=== PATIENT | female | born 1955 | race Caucasian/White ===

== ENCOUNTER → 2017-09-02 | Outpatient (CLI) | payer BC ==
[~2017-09-02] MED LIST: AZITTAB PO; HYDC25 PO
[2017-09-02 13:24] LABS: ALT/SGPT 21 U/L (12-78); AST/SGOT 17 U/L (15-37); BLOOD UREA NITROGEN 18 mg/dl (7-18); BUN/CREATININE RATIO 23.4 (10-20); CALCIUM 9.2 mg/dl (8.5-10.1); CARBON DIOXIDE 28 mmol/L (21-32); CHLORIDE 108 mmol/L (98-107); CREATININE 0.79 mg/dl (0.60-1.20); GLUCOSE 86 mg/dl (70-99); POTASSIUM 3.9 mmol/L (3.5-5.1); SODIUM 142 mmol/L (136-145)
[2017-09-02 13:35] LABS: ALB/GLOB RATIO 0.9 (0.9-2); ALKALINE PHOSPHATASE 102 U/L (45-117)
== END | disposition home or self-care (01) ==
LOC: C.LABPVFM 08:10
PROVIDERS: ATTEND Family Medicine Adult Medicine
DX: I10 Essential (primary) hypertension (principal); Z00.00 Encounter for general adult medical examination without abnormal findings

== ENCOUNTER 2019-12-28 20:04 | Inpatient (IN) ==
[2019-12-28] MEDS ORDERED: fentaNYL citrate 100 MCG/2 ML VIAL IV STA (20:20)
[2019-12-28] MEDS ORDERED: KETOROLAC TROMETHAMINE 15 MG/ML VIAL IV STA (20:20)
[2019-12-28] MEDS ORDERED: SODIUM CHLORIDE 0.9% 1000ML 1,000 ML IV ONE (20:20)
[2019-12-28] MEDS ORDERED: ONDANSETRON INJ 2 MG/ML 2 ML VIAL IV STA (20:20)
[2019-12-28 20:39] LABS: Basophils # (auto) 0.04 K/uL (0-0.2); Basophils % (auto) 0.2 %; Eosinophils # (auto) 0.04 K/uL (0-0.5); Eosinophils % (auto) 0.2 %; Hematocrit (blood only) 47.8 % (37-47); Hemoglobin 16.7 g/dL (12.0-16.0); Immature Granulocytes # (auto) 0.06 K/uL (0.00-0.02); Immature Granulocytes % (auto) 0.4 %; Lymphocytes # (auto) 2.49 K/uL (1.2-3.4); Lymphocytes % (auto) 14.9 %; Mean Corpuscular Hemoglobin 32.1 pg (25-34); Mean Corpuscular Hgb Conc 34.9 g/dL (32-36); Mean Corpuscular Volume 91.9 fL (80-100); Mean Platelet Volume 10.7 fL (7.4-10.4); Monocytes # (auto) 1.15 K/uL (0.11-0.59); Monocytes % (auto) 6.9 %; Neutrophils # (auto) 12.92 K/uL (1.4-6.5); Neutrophils % (auto) 77.4 %; Platelet Count 254 K/uL (130-400); RDW Standard Deviation 43.7 fL (36.4-46.3)
[2019-12-28 20:44] LABS: iSTAT Creatinine 0.6 mg/dl (0.6-1.3); iSTAT Hemoglobin 17.3 g/dl (12.0-16.0); iSTAT Ionized Calcium 1.14 mmol/l (1.12-1.32); iSTAT Potassium 3.4 mmol/L (3.3-5.0)
[2019-12-28 20:48] LABS: Prothrombin Time 10.9 Seconds (9.0-12.0)
[2019-12-28 20:57] LABS: Alanine Aminotransferase 46 U/L (12-78); Albumin Level 3.5 gm/dl (3.4-5.0); Aspartate Aminotransferase 277 U/L (15-37); BUN Creatinine Ratio 24.3 (10-20); Blood Urea Nitrogen 19 mg/dl (7-18); Calcium 9.5 mg/dl (8.5-10.1); Carbon Dioxide 22 mmol/L (21-32); Chloride 107 mmol/L (98-107); Est GFR (African American) 95.2; Est GFR (Non-African American) 82.2; Glucose 147 mg/dl (70-99); Lipase 151 U/L (73-393); Potassium 3.4 mmol/L (3.5-5.1); Sodium 138 mmol/L (136-145)
[2019-12-28] MEDS ORDERED: OPTIRAY 320 125ml IV PRN (21:09)
--- NOTE | 2019-12-28 21:22 | CT Scan Report ---
CT angio chest PE protocol CT DOSE: 512.74 mGy.cm HISTORY: Chest PE, dizzy, sob, epigastric pain TECHNIQUE: Multiaxial CT images of the chest were performed following the intravenous administration of contrast to evaluate the pulmonary arteries. Maximal intensity projection images were also obtaine d. A dose lowering technique was utilized adhering to the principles of ALARA. COMPARISON STUDY: None. FINDINGS: There is a normal caliber thoracic aorta with no evidence for dissection. There is no evide nce for pulmonary embolus. No pleural effusions. No pneumothorax. The liver and spleen are unremarkab le. No mediastinal or hilar lymphadenopathy. The central airways are patent. The lungs are clear. The re is mild peribronchial thickening. There are findings of mild emphysematous change. IMPRESSION: 1. No evidence for pulmonary embolus. 2. Mild peribronchial thickening throughout both hemithoraces. 3. No focal infiltrate. ACT 112: Negative or not required by law. The above report was generated using voice recognition software. It may contain grammatical, syntax or spelling errors. Electronically signed by: Curtis Early M.D. 12/28/2019 9:21 PM
--- NOTE | 2019-12-28 21:29 | CT Scan Report ---
CT abd pelvis IV con only CT DOSE: HISTORY: Pain. Nausea. epigastric pain, dizzy, nausea TECHNIQUE: Multiaxial CT images of the abdomen and pelvis were performed following the use of intrave nous contrast. A dose lowering technique was utilized adhering to the principles of ALARA. COMPARISON STUDY: None. FINDINGS: Lung bases are clear. Liver spleen and pancreas appear unremarkable. Kidneys enhance unifor mly. There is a 3.5 cm left renal parapelvic cyst. There is aneurysmal dilatation of the mid abdominal aorta extending superior and inferior to the kimberly l arteries. This has a maximum diameter 4.2 cm. It is partially clot filled. There is no evidence for contrast extravasation. The bowel pattern within the abdomen is nonobstructive. Within the pelvis there is evidence for chronic sigmoid diverticulosis. There is suggestion of a trac e amount of pericolonic infiltrative change. No evidence for abscess collection or obstructive change. IMPRESSION: 1. 4.2 cm partially clot filled mid abdominal aortic aneurysm. 2. This extends to a position superior and inferior to the renal arteries. 3. No evidence for aneurysmal leak. 4. Chronic sigmoid diverticulosis with a trace amount of superimposed acute diverticular change. 5. No evidence for abscess collection or obstructive change. ACT 112: Negative or not required by law. The above report was generated using voice recognition software. It may contain grammatical, syntax or spelling errors. Electronically signed by: Curtis Early M.D. 12/28/2019 9:28 PM
[2019-12-28 21:42] LABS: Albumin Globulin Ratio 0.8 (0.9-2); Alkaline Phosphatase 111 U/L (45-117); Bilirubin,Total 0.6 mg/dl (0.2-1); Globulin 4.5 gm/dl (2.5-4.0)
[2019-12-28] MEDS ORDERED: NITROGLYCERIN SL 0.4 MG/TAB TAB SL STA (21:48)
[2019-12-28] MEDS ORDERED: ASPIRIN 81 MG CHEW PO STA (21:48)
[2019-12-28] MEDS ORDERED: HEPARIN SODIUM/DEXTROSE 25,000 UNITS/500 ML BAG IV SCH (22:00)
[2019-12-28] MEDS ORDERED: HEPARIN SOD (PORCINE) 1000 UNIT/ML 10 ML VIAL ONE (22:09)
[2019-12-28 22:26] LABS: Partial Thromboplastin Ratio 0.9; Partial Thromboplastin Time 24.8 Seconds (21.0-31.0)
--- NOTE | 2019-12-28 22:28 | Emergency Department Note ---
Entered by Raisa Blackwell acting as a scribe for History of Present Illness General Chief complaint: Abdominal Pain Stated complaint: ABD PAIN Time Seen by Provider: 12/28/19 20:09 History of Present Illness Provider complaint: epigastric abdominal pain Onset (ago): hour(s) (18) Location: abdomen (epigastric) Pain Consistency: + constant Maximum Pain Intensity: 3 Quality: + other (pressure) Exacerbated By: + movement Associated symptoms: + denies other symptoms (recent travel), + nausea/vomiting and + other (dizzy spells, intermittent lightheadedness, has not been able to eat or drink anything today); no fever/chills The patient is a 64 year old female who presents to the ED with complaints of constant epigastric abdominal pain that started 18 hours ago. The patient describes her pain as a pressure and states that it is exacerbated by movement. The patient states that she also gets dizzy spells and intermittent lightheadedness. Per , the patient has felt nauseas and she just vomited for the first time here in the ED. The patient states that she has not been able to eat or drink anything today. The patient denies fever or recent travel. 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 and A total of 10 systems reviewed and were otherwise negative Physical Exam Vital Signs Vital Signs - 24 hr 12/28/19 20:06 12/28/19 20:30 12/28/19 20:33 Temperature 36.4 C L Temperature Source Oral Pulse Rate 76 65 60 Pulse Rate [Apical] 59 L Pulse Rate from SpO2 Sensor 64 Pulse Rhythm Regular Pulse Rhythm [Apical] Regular Pulse Strength [Apical] Normal Respiratory Rate 19 26 H 18 Respiratory Effort / Characteristics Non-Labored Spontaneous Respiratory Depth Normal Respiratory Pattern Regular Blood Pressure 159/95 H 169/95 H Blood Pressure [Left Arm] 169/95 H Blood Pressure Mean 116 109 Blood Pressure Mean [Left Arm] 119 Blood Pressure Position Lying Blood Pressure Position [Left Arm] Semi-fowlers Pulse Oximetry 100 98 100 Oxygen Delivery Method Room Air Room Air Sepsis Recent Fever Within 48 Hours No Sepsis Action Taken by Nursing No Action Required 12/28/19 21:00 12/28/19 21:40 12/28/19 21:54 Temperature Temperature Source Pulse Rate 67 76 Pulse Rate [Apical] 80 Pulse Rate from SpO2 Sensor 66 74 Pulse Rhythm Pulse Rhythm [Apical] Regular Pulse Strength [Apical] Normal Respiratory Rate 24 23 21 Respiratory Effort / Characteristics Non-Labored Spontaneous Respiratory Depth Normal Respiratory Pattern Regular Blood Pressure 150/88 H 140/87 Blood Pressure [Left Arm] 140/87 Blood Pressure Mean 104 92 Blood Pressure Mean [Left Arm] 104 Blood Pressure Position Blood Pressure Position [Left Arm] Sitting Pulse Oximetry 97 94 98 Oxygen Delivery Method Room Air Sepsis Recent Fever Within 48 Hours Sepsis Action Taken by Nursing 12/28/19 22:00 12/28/19 22:02 12/28/19 22:30 Temperature Temperature Source Pulse Rate 86 84 67 Pulse Rate [Apical] Pulse Rate from SpO2 Sensor 86 84 68 Pulse Rhythm Pulse Rhythm [Apical] Pulse Strength [Apical] Respiratory Rate 24 25 H 21 Respiratory Effort / Characteristics Respiratory Depth Respiratory Pattern Blood Pressure 125/85 125/85 107/87 Blood Pressure [Left Arm] Blood Pressure Mean 102 102 95 Blood Pressure Mean [Left Arm] Blood Pressure Position Blood Pressure Position [Left Arm] Pulse Oximetry 99 97 99 Oxygen Delivery Method Room Air Sepsis Recent Fever Within 48 Hours Sepsis Action Taken by Nursing 12/28/19 23:00 12/28/19 23:30 12/28/19 23:51 Temperature Temperature Source Pulse Rate 67 65 65 Pulse Rate [Apical] Pulse Rate from SpO2 Sensor 68 66 Pulse Rhythm Pulse Rhythm [Apical] Pulse Strength [Apical] Respiratory Rate 24 24 24 Respiratory Effort / Characteristics Respiratory Depth Respiratory Pattern Blood Pressure 143/87 H 137/89 137/89 Blood Pressure [Left Arm] Blood Pressure Mean 103 102 Blood Pressure Mean [Left Arm] Blood Pressure Position Blood Pressure Position [Left Arm] Pulse Oximetry 100 96 96 Oxygen Delivery Method Room Air Room Air Room Air Sepsis Recent Fever Within 48 Hours Sepsis Action Taken by Nursing GENERAL: Awake, alert, uncomfortable-appearing, in mild to moderate distress HENT: Normocephalic, atraumatic. No slurred speech. EYES: Normal conjunctiva. Sclera non-icteric. NECK: Supple. No nuchal rigidity. RESPIRATORY: Clear to auscultation. No wheezes. Normal respiratory effort. CARDIAC: Normal rate. Normal rhythm. Extremities warm and well perfused. GI: Soft, non-distended. Mild diffuse abdominal tenderness. No rebound or guarding. MUSCULOSKELETAL: Atraumatic. Chest examination reveals no tenderness. LOWER EXTREMITIES: Calves are equal size bilaterally and non-tender. No edema NEURO: Normal sensorium. No sensory or motor deficits noted. No facial droop. SKIN: Warm and diaphoretic. No rash or jaundice noted. Course Course 2013: Past medical records reviewed. The patient was evaluated in room B12B. A complete history and physical exam was performed. 2136: I reevaluated the patient and she is still having some discomfort. I updated her on the test results. 2151: I discussed the patient's case with Dr. Reece Baker. He recommends Heparin and medical admission. 2157: I updated the patient on the plan for admission. She verbally agrees and understands. 3: I discussed the patient's case with Dr. Lopes [facility], Hospitalist. She will evaluate the patient for further management. Consultations Consultation #1: I discussed the patient's case with Dr. Reece Baker. He recommends Heparin and medical admission. Time: 21:52 Consultation #2: I discussed the patient's case with Dr. Lopes [facility], Hospitalist. She will evaluate the patient for further management. Time: 22:03 Administered Medications Heparin Sodium/Dextrose (Heparin Sodium/Dextrose) 25,000 units in 500 mls @ 0.02 mls/hr IV .Q24H [facility]; Protocol Stop: 01/27/20 21:59 Last Admin: 12/28/19 22:15 Dose: 1,150 units/hr, 23 mls/hr Documented by: [id number] Cosigned by: [id number] Ioversol (Optiray 320 125ml) 117 ml IV ONCE PRN PRN Reason: Interaction Checking Stop: 01/01/20 21:08 Last Admin: 12/28/19 21:09 Dose: 117 ml Documented by: [id number] Discontinued Medications Aspirin (Aspirin Chew) 324 mg PO NOW STA Stop: 12/28/19 21:49 Last Admin: 12/28/19 21:53 Dose: 324 mg Documented by: [id number] Fentanyl Citrate (Fentanyl Citrate) 50 mcg IV NOW STA Stop: 12/28/19 20:21 Last Admin: 12/28/19 20:29 Dose: 50 mcg Documented by: [id number] Heparin Sodium (Porcine) (Heparin Iv Bolus) Confirm Administered Dose 10,000 un its .ROUTE .STK-MED ONE Stop: 12/28/19 22:10 Last Admin: 12/28/19 22:15 Dose: 5,000 units Documented by: [id number] Cosigned by: [id number] Sodium Chloride (Nss 1000ml) 1,000 mls @ 999 mls/hr IV .Q1H1M ONE Stop: 12/28/19 21:20 Last Infusion: 12/28/19 21:32 Dose: 0 mls/hr Documented by: [id number] Admin: 12/28/19 20:28 Dose: 999 mls/hr Documented by: [id number] Ketorolac Tromethamine (Toradol) 15 mg IV NOW STA Stop: 12/28/19 20:21 Last Admin: 12/28/19 20:28 Dose: 15 mg Documented by: [id number] Morphine Sulfate (Morphine Sulfate) 1 mg IV NOW STA Stop: 12/28/19 23:30 Last Admin: 12/29/19 00:03 Dose: 1 mg Documented by: [id number] Nitroglycerin (Nitrostat) 0.4 mg SL NOW STA Stop: 12/28/19 21:49 Last Admin: 12/28/19 21:53 Dose: 0.4 mg Documented by: [id number] Ondansetron HCl (Zofran) 4 mg IV NOW STA Stop: 12/28/19 20:21 Last Admin: 12/28/19 20:28 Dose: 4 mg Documented by: [id number] Critical Care Time Critical Care Time: Yes Total Critical Care Time: 40 I have personally spent 40 minutes of critical care time in the direct managem ent of this patient. This includes bedside care, interpretation of diagnostic studies, and testing, discussion with consultants, patient, and family members, and other required patient management activities. This 40 minutes is in excess of all separately billable procedures. Medical Decision Making Differential Diagnosis Differential diagnosis: Etiologies such as biliary colic, cholecystitis, hepatitis, perihepatitis, pancreatitis, cardiac disease, pancreatitis, gastritis, peptic ulcer disease, a ppendicitis, ovarian cyst, ovarian torsion, pelvic inflammatory disease, cystitis, diverticulitis, mesenteric ischemia, inflammatory bowel disease, ileus, bowel obstruction, aortic pathology, shingles, as well as others were considered. Medical Records Attestation: I reviewed the patient's medical records. Home Medications Current Medication List: was personally reviewed by me Laboratory Data Attestation: I reviewed the patient's lab results. Result diagrams: 12/28/19 20:20 12/28/19 20:20 Lab Results 12/28/19 12/28/19 12/28/19 Range/Units 20:20 20:20 20:20 WBC 16.70 H (4.8-10.8) K/uL RBC 5.20 (4.2-5.4) M/uL Hgb 16.7 H (12.0-16.0) g/dL POC Hgb (12.0-16.0) g/dl Hct 47.8 H (37-47) % POC Hct (37-47) % MCV 91.9 (80-100) fL MCH 32.1 (25-34) pg MCHC 34.9 (32-36) g/dL RDW Std Deviation 43.7 (36.4-46.3) fL RDW Coeff of Ganga 13.0 (11.5-14.5) % Plt Count 254 (130-400) K/uL MPV 10.7 H (7.4-10.4) fL Immature Gran % (Auto) 0.4 % Neut % (Auto) 77.4 % Lymph % (Auto) 14.9 % Nance % (Auto) 6.9 % Eos % (Auto) 0.2 % Baso % (Auto) 0.2 % Immature Gran # (Auto) 0.06 H (0.00-0.02) K/uL Neut # (Auto) 12.92 H (1.4-6.5) K/uL Lymph # (Auto) 2.49 (1.2-3.4) K/uL Nance # (Auto) 1.15 H (0.11-0.59) K/uL Eos # (Auto) 0.04 (0-0.5) K/uL Baso # (Auto) 0.04 (0-0.2) K/uL PT 10.9 (9.0-12.0) Seconds INR 1.0 (0.9-1.1) APTT (21.0-31.0) Seconds PTT Ratio POC Sodium (135-144) mmol/L Sodium 138 (136-145) mmol/L POC Potassium (3.3-5.0) mmol/L Potassium 3.4 L (3.5-5.1) mmol/L POC Chloride (101-112) mmol/L Chloride 107 (98-107) mmol/L Carbon Dioxide 22 (21-32) mmol/L POC Total CO2 (24-31) mEq/l Anion Gap 9.0 (3-11) POC Anion Gap (16-25) mmol/L POC BUN (7-18) mg/dl BUN 19 H (7-18) mg/dl Creatinine 0.77 (0.6-1.2) mg/dl POC Creatinine (0.6-1.3) mg/dl Est Cr Clr Drug Dosing Not Reportable Est GFR ( Amer) 95.2 Est GFR (Non-Af Amer) 82.2 BUN/Creatinine Ratio 24.3 H (10-20) Glucose 147 H (70-99) mg/dl POC Glucose (other) (70-99) mg/dl Calcium 9.5 (8.5-10.1) mg/dl POC Ioniz Calcium Jian (1.12-1.32) mmol/l Phosphorus 2.2 L (2.5-4.9) mg/dl Magnesium 1.9 (1.8-2.4) mg/dl Total Bilirubin 0.6 (0.2-1) mg/dl AST 277 H (15-37) U/L ALT 46 (12-78) U/L Alkaline Phosphatase 111 (45-117) U/L Troponin I 44.900 H* (0-0.045) ng/ml Total Protein 8.0 (6.4-8.2) gm/dl Albumin 3.5 (3.4-5.0) gm/dl Globulin 4.5 H (2.5-4.0) gm/dl Albumin/Globulin Ratio 0.8 L (0.9-2) Lipase 151 (73-393) U/L Blood Type Antibody Screen 12/28/19 12/28/19 12/28/19 Range/Units 20:31 22:06 22:06 WBC (4.8-10.8) K/uL RBC (4.2-5.4) M/uL Hgb (12.0-16.0) g/dL POC Hgb 17.3 H (12.0-16.0) g/dl Hct (37-47) % POC Hct 51 H (37-47) % MCV (80-100) fL MCH (25-34) pg MCHC (32-36) g/dL RDW Std Deviation (36.4-46.3) fL RDW Coeff of Ganga (11.5-14.5) % Plt Count (130-400) K/uL MPV (7.4-10.4) fL Immature Gran % (Auto) % Neut % (Auto) % Lymph % (Auto) % Nance % (Auto) % Eos % (Auto) % Baso % (Auto) % Immature Gran # (Auto) (0.00-0.02) K/uL Neut # (Auto) (1.4-6.5) K/uL Lymph # (Auto) (1.2-3.4) K/uL Nance # (Auto) (0.11-0.59) K/uL Eos # (Auto) (0-0.5) K/uL Baso # (Auto) (0-0.2) K/uL PT (9.0-12.0) Seconds INR (0.9-1.1) APTT 24.8 (21.0-31.0) Seconds PTT Ratio 0.9 POC Sodium 139 (135-144) mmol/L Sodium (136-145) mmol/L POC Potassium 3.4 (3.3-5.0) mmol/L Potassium (3.5-5.1) mmol/L POC Chloride 105 (101-112) mmol/L Chloride (98-107) mmol/L Carbon Dioxide (21-32) mmol/L POC Total CO2 22 L (24-31) mEq/l Anion Gap (3-11) POC Anion Gap 17.0 (16-25) mmol/L POC BUN 18 (7-18) mg/dl BUN (7-18) mg/dl Creatinine (0.6-1.2) mg/dl POC Creatinine 0.6 (0.6-1.3) mg/dl Est Cr Clr Drug Dosing Est GFR ( Amer) Est GFR (Non-Af Amer) BUN/Creatinine Ratio (10-20) Glucose (70-99) mg/dl POC Glucose (other) 141 H (70-99) mg/dl Calcium (8.5-10.1) mg/dl POC Ioniz Calcium Jian 1.14 (1.12-1.32) mmol/l Phosphorus (2.5-4.9) mg/dl Magnesium (1.8-2.4) mg/dl Total Bilirubin (0.2-1) mg/dl AST (15-37) U/L ALT (12-78) U/L Alkaline Phosphatase (45-117) U/L Troponin I (0-0.045) ng/ml Total Protein (6.4-8.2) gm/dl Albumin (3.4-5.0) gm/dl Globulin (2.5-4.0) gm/dl Albumin/Globulin Ratio (0.9-2) Lipase (73-393) U/L Blood Type A Positive Antibody Screen NEGATIVE Imaging Data Radiologist's Impression: Radiology results as stated below per my review and the radiologist's interpretation: CT angio chest PE protocol CT DOSE: 512.74 mGy.cm HISTORY: Chest PE, dizzy, sob, epigastric pain TECHNIQUE: Multiaxial CT images of the chest were performed following the intrav enous administration of contrast to evaluate the pulmonary arteries. Maximal intensity projection images were also obtained. A dose lowering technique was utilized adhering to the principles of ALARA. COMPARISON STUDY: None. FINDINGS: There is a normal caliber thoracic aorta with no evidence for dissection. There is no evidence for pulmonary embolus. No pleural effusions. No pneumothorax. The liver and spleen are unremarkable. No mediastinal or hilar lymphadenopathy. The central airways are patent. The lungs are clear. There is mild peribronchial thickening. There are findings of mild emphysematous change. IMPRESSION: 1. No evidence for pulmonary embolus. 2. Mild peribronchial thickening throughout both hemithoraces. 3. No focal infiltrate. ACT 112: Negative or not required by law. The above report was generated using voice recognition software. It may contain grammatical, syntax or spelling errors. Electronically signed by: Curtis Early M.D. 12/28/2019 9:[address] abd pelvis IV con only CT DOSE: HISTORY: Pain. Nausea. epigastric pain, dizzy, nausea TECHNIQUE: Multiaxial CT images of the abdomen and pelvis were performed following the use of intravenous contrast. A dose lowering technique was utilized adhering to the principles of ALARA. COMPARISON STUDY: None. FINDINGS: Lung bases are clear. Liver spleen and pancreas appear unremarkable. Kidneys enhance uniformly. There is a 3.5 cm left renal parapelvic cyst. There is aneurysmal dilatation of the mid abdominal aorta extending superior and inferior to the renal arteries. This has a maximum diameter 4.2 cm. It is partially clot filled. There is no evidence for contrast extravasation. The bowel pattern within the abdomen is nonobstructive. Within the pelvis there is evidence for chronic sigmoid diverticulosis. There is suggestion of a trace amount of pericolonic infiltrative change. No evidence for abscess collection or obstructive change. IMPRESSION: 1. 4.2 cm partially clot filled mid abdominal aortic aneurysm. 2. This extends to a position superior and inferior to the renal arteries. 3. No evidence for aneurysmal leak. 4. Chronic sigmoid diverticulosis with a trace amount of superimposed acute diverticular change. 5. No evidence for abscess collection or obstructive change. ACT 112: Negative or not required by law. The above report was generated using voice recognition software. It may contain grammatical, syntax or spelling errors. Electronically signed by: Curtis Early M.D. 12/28/2019 9:28 PM ECG Data Attestation: I personally reviewed and interpreted this ECG as follows: Indication: + abdominal pain Rate (beats per minute): 66 Rhythm: + normal sinus ECG Intervals/blocks: + Normal QRS and + Normal QT-c ECG ST segments: + ST depression (inferior) and + T-wave inversions (Lateral); no ST elevation ECG Findings: no PVCs Comparison ECG Date: no prior available Blood Pressure Blood Pressure Findings: Elevated blood pressure Blood Pressure Disposition: further management by hospitalist OLIVER Narrative Continuous Cardiac Monitoring: An order was placed for continuous cardiac monitoring. The monitor shows a rate of 66 with normal sinus rhythm. Patient is a 64-year-old female with a history of hypertension presenting here today with complaint of onset approximately 18 hours ago overnight of epigastric abdominal pain, nausea, and dizziness. No fevers or trauma reported. Patient appears somewhat diaphoretic and in moderate distress upon entering the room on the bed. Some mild mid abdominal tenderness is appreciated without arlette Ohara sign. Denies headache or other neurological sequelae upon some dizziness. States has been able to eat or drink much today and has been vomiting. No other sick contacts. Little bit breathless. No travel recently. EKG shows lateral T wave inversions and slight inferior ST depression without prior available for comparison. Troponin was sent. CT of the chest to exclude PE and CT abdomen pelvis to exclude intra-abdominal pathology was completed. Doubt acute intracranial abnormality or bleed at this time. Basic labs to evaluate blood counts, electrolytes, renal function, transaminases, and lipase were sent. Do not believe this represents viral syndrome or flu. Patient states she has had some episodes of dizziness in the past. Laboratory studies show leukocytosis 16.7. No evidence of renal dysfunction or significant electrolyte abnormality. No evidence of pancreatitis. AST slightly elevated. CT of chest with mild peribronchial thickening but no evidence of PE or focal infiltrate; no evidence of thoracic dissection. CT of the abdomen pelvis shows a 4.2 cm partially clot filled mid abdominal aortic aneurysm extends superior and inferior to the renal arteries. There is no evidence of aneurysmal leak. Significantly there is a finding of an elevated troponin of 44.9. EKG again does not show evidence of STEMI, but some slight inferior depression and lateral T wave changes. 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 Discussed with the baggage smasher on-call who recommended heparinization and medical management overnight. Hospitalist was alerted for admission and case discussed. Given some aspirin, heparin drip, and nitroglycerin. Pain symptoms minimal at this time. Believe risk of bleeding is lower than benefit from anticoagulation at this time. Impression & Plan Non-ST elevation myocardial infarction (NSTEMI), Epigastric pain, Dizziness Discharge Plan Visit Data Chief Complaint: Abdominal Pain Stated Complaint: ABD PAIN ED Provider: Lanre Batres Discharge Problem: Non-ST elevation myocardial infarction (NSTEMI), Epigastric pain, Dizziness Patient Disposition: Being Evaluated by Hospitalist Discharge Instructions Interventions: ED Discharge Assessment Last Done: 12/28/19 23:51 Forms Stand Alone Forms: My [facility] Prescriptions Prescriptions: No Action amlodipine 5 mg tablet 5 mg PO DAILY Qty: 30 RF: 0 Referrals Referrals: PT,DECLINED [Primary Care Provider] - The scribe's documentation has been prepared under my direction and personally reviewed by me in its entirety. I confirm that the note above accurately reflects all work, treatment, procedures, and medical decision making performed by me.
[2019-12-28 22:46] LABS: Magnesium 1.9 mg/dl (1.8-2.4); Phosphorus 2.2 mg/dl (2.5-4.9)
[2019-12-28] MEDS ORDERED: MoRPHine SULFATE 2 MG/ML CARP IV STA (23:29)
[2019-12-28] MEDS ORDERED: PNEUMOCOCCAL POLYSACCHARIDES 25 MCG/0.5 ML VIAL/SYR IM ONE (23:39)
[2019-12-28] MEDS ORDERED: PNEUMOCOCCAL ADMINISTRATION CHARGE ONE (23:39)
[2019-12-29] MEDS ORDERED: MoRPHine SULFATE 2 MG/ML CARP IV PRN (00:24)
[2019-12-29] MEDS ORDERED: ACETAMINOPHEN 325 MG TAB PO PRN ×2 (00:24→10:05)
[2019-12-29] MEDS ORDERED: SODIUM CHLORIDE 0.9% 1000ML 1,000 ML IV SCH ×2 (00:24→10:15)
[2019-12-29 01:07] LABS: Appearance Urine Clear (Clear); Bacteria Urine Automated Negative (Negative); Bilirubin Urine Negative (Negative); Blood Urine 1+ (Negative); Color Urine Yellow; Glucose Urine UA Negative (Negative); Ketones Urine 2+ (Negative); Leukocyte Esterase Urine Negative (Negative); Nitrite Urine Negative (Negative); Protein Urine Negative (Negative); Specific Gravity Urine > 1.045 (1.000-1.030); Urobilinogen Urine Negative (Negative)
[2019-12-29] MEDS: NITROGLYCERIN 2% OINTMENT 30GM TUBE EXT SCH ×4 (01:29→18:37)
[2019-12-29] MEDS ORDERED: Heparin IV Standard *NO* Bolus IV ONE (01:32)
[2019-12-29] MEDS: HEPARIN SODIUM/DEXTROSE 25,000 UNITS/500 ML BAG IV SCH (01:35)
[2019-12-29] MEDS: ONDANSETRON INJ 2 MG/ML 2 ML VIAL IV PRN ×2 (02:00→04:47)
--- NOTE | 2019-12-29 02:34 | History & Physical Report ---
Date of Service December 28, 2019 Assessment & Plan (1) Non-ST elevation myocardial infarction (NSTEMI): Keri Russo is a 64-year-old woman with past medical history of hypertension and mild COPD who is here today for N STEMI with newly visualized AAA NSTEMI No personal history of coronary disease but patient does have risk factor of smoking, ECG showing no ST changes however troponin elevated to 40 and pain and dyspnea with exertion Given aspirin nitroglycerin and started on heparin drip We will admit to PCU on telemetry, cardiology stat consulted Dr. Joseph who recommends treating medically as there is no acute call for coronary catheterization at this time We will get new ECGs with chest pain and try to make sure patient is pain-free with Nitropaste and morphine as needed Pain is much improved, patient is breathing more comfortably Echo ordered for morning Mag and phosphate levels ordered Slightly hypokalemic will replace potassium AAA Newly visualized AAA, less than 5 cm in size with no evidence of acute worsening at this time Patient has been typed and screened, if patient will develop new abdominal pain or have worsening hemodynamics we will resuscitate order stat vascular consult Do not believe this is related to patient's current NSTEMI COPD Stable oxygen well on room air, Not on home medications, no need for oxygen Health maintenance We will give patient Pneumovax F/C/N: Normal saline at 80 mils per hour with KCl 40 mEq DVT prophylaxis: On heparin drip Full code Disco: Admit to PCU and monitor closely ECG with a new chest pain cardiology to evaluate in the morning for possible coronary catheterization (2) Epigastric pain: (3) Dizziness: (4) COPD (chronic obstructive pulmonary disease): (5) Abdominal aortic aneurysm: History of Present Illness Primary Care Provider: PT DECLINED Keri Russo is a 64-year-old woman with a past medical history significant for hypertension and COPD. She takes only amlodipine 5 mg at home. She is here today for epigastric pain and dyspnea that started around 2:30 AM and awoke her from sleep she decided to watch these symptoms to see if she would get better and to stay in bed for most of the day her epigastric pain persisted she describes it as a pretty sharp pain that she rates at times it about a 10 out of 10. Eventually she decided to come in, and on the drive and she did have a few episodes of dry heaving though she believes this was more due to pain than due to any nausea. She denies any palpitations, any syncope or presyncope, any neurological symptoms. In emergency department she was found to be hemodynamically stable, afebrile, though she has been tachypneic which she attributes to her anxiety over the circumstances. ECG without acute ST changes, troponin elevated to 40, CTA chest negative CT abdomen showing 4 cm abdominal aortic aneurysm with clotted blood and no active flow. Patient was given aspirin 325, nitroglycerin, and started on a heparin drip. She feels her pain is much improved and has gone from quite severe to more of a discomfort now that she rates it about a 1. She denies arlette chest pain, her abdominal pain does not seem to radiate to her back or anywhere else. She has not had vomiting, no fevers, no chills, no cough, no palpitations, No calf pain, no leg swelling, no syncope/presyncope, no headache, no confusion, she is endorsing anxiety. She has been about a half pack a day smoker since she was 18, she also smokes marijuana regularly, she was diagnosed with COPD but does not take any medication or need any oxygen. She is otherwise healthy and was in her usual state of health prior to going to be last night before being awoken by this pain. Allergies Allergy/AdvReac Type Severity Reaction Status Date / Time No Known Allergies Allergy Mild Verified 12/28/19 21:30 Home Medications Home Medications Medication Instructions Recorded Confirmed Type amlodipine 5 mg tablet 5 mg PO DAILY #30 tab 10/04/19 12/28/19 Rx Past Med/Surg History Social History Preferred Language: Bengali Communication Ability: Effective Housing Inspector Required: No Beliefs That Will Affect Care: None Current Living Situation: Spouse Other Information That Helps Us Care for You: Yes (has a support dog) Feels Safe at Home: Yes Smoking Status: Current every day smoker Tobacco Type: cigarettes ; Cigarettes Per Day: 5 ; Tobacco Cessation Education Requested by Patient: No Hx Alcohol Use: Yes Review of Systems Review of Systems: All systems reviewed & are unremarkable except as noted in HPI & below Physical Exam Physical Exam: Constitutional: Patient appears anxious fidgeting her hands together in bed, no longer as tachypneic, at bedside. Small amount of sweat on face Eyes: TOMMY MISTRY ENMT: No external abnormalities detected Respiratory: No increased work of breathing, normal rate, chest expansion equal, lung sounds vesicular in all lung north, good air entry globally Card: Heart sounds dual, regular rate and rhythm, PMI normal, peripheral pulses strong and intact, skin appears well perfused in extremities GI: Abdomen soft and nontender, patient with epigastric pain though not made any worse by my palpation. no organomegaly appreciated, no pulsatile abdominal mass appreciated Skin: warm dry appearing well perfused Results & Data Vital Signs (Past 12 Hours) Vital Signs Temp Pulse Pulse Resp BP BP Pulse Ox 12/28/19 21:54 80 21 140/87 98 12/28/19 20:33 60 59 L 18 169/95 H 100 12/28/19 20:30 65 26 H 169/95 H 98 12/28/19 20:06 36.4 C L 76 19 159/95 H 100 Supervising Physician Co-Signing Physician Notes Patient seen and examined, chart reviewed, case discussed with Dr. Rowe and I agree with his assessment and plan as documented above. Briefly, patient is a 64-year-old female presenting with N STEMI. Also with abdominal aortic aneurysm, stable by CT On exam patient is afebrile, hemodynamically stable, nontoxic in appearance. Anxious Skinwarm, dry, intact, no rashes or lesions HEENTnormocephalic/atraumatic, pupils equal and reactive to light, neck supple, no JVD Heart+ S1, S2, regular, no murmur/rubs/gallops Lungsclear to auscultation bilaterally, no rales/rhonchi/wheezes Abdomen+ bowel sounds, soft, nontender, nondistended Extremitieswarm, well perfused with palpable pulses Neurononfocal, patient awake alert and oriented x4, answering questions appropriately and following commands Labs and images reviewed. Significant for leukocytosis with WBC = 16.7, Hgb = 16.7, HCT = 47.8Presenting with Troponin elevated at 44.9 CT abdomen and pelvis significant for 4.2 cm partially collapsed filled mid abdominal aortic aneurysm which extends to the superior and inferior renal arteries. No evidence of leak. Assessment/[id number] female presenting with abdominal aortic aneurysm presented with epigastric discomfort, shortness of breath/dyspnea on exertion and nausea. Found to have elevated troponin at 44.9. Patient's epigastric discomfort has markedly improved however, is still present. Some concern for ongoing ischemia Admit to PCU, continuous cardiac monitoring Heparin drip Optimize electrolytes Nitro patch, morphine as needed for pain Cardiology aware of the patient. We will manage medically for now is no indication for emergent cardiac catheterization. We will plan for procedure in the morning Remainder of plan as above Resident Activity Tracking Resident Involvement: Resident Care Provided Care Provided: Adult Hospital Medicine
[2019-12-29] MEDS: POTASSIUM CHLORIDE / WTR 10 MEQ/100 ML PLCT IV SCH ×2 (04:40→05:30)
[2019-12-29 04:50] LABS: Partial Thromboplastin Ratio 3.1
[2019-12-29] MEDS ORDERED: ONDANSETRON INJ 2 MG/ML 2 ML VIAL IV STA (04:51)
[2019-12-29] MEDS ORDERED: SODIUM PHOSPHATE 3 MMOL/1 ML INFUSION IV STA (04:54)
[2019-12-29] MEDS ORDERED: MAGNESIUM SULFATE / D5W 1 GM/100 ML BAG IV ONE (05:00)
[2019-12-29 05:15] LABS: Partial Thromboplastin Time 85.8 Seconds (21.0-31.0)
[2019-12-29] MEDS ORDERED: SODIUM PHOSPHATE 15 MMOL in SODIUM CHLORIDE 0.9% 250 ML IV ONE (05:15)
[2019-12-29] MEDS ORDERED: IOVERSOL 100ml IV PRN (05:16)
--- NOTE | 2019-12-29 05:26 | Communication Note ---
Date of Service: December 29, 2019 Came back to evaluate the patient again at around 5 am due to worsening epigastric pain. She described the pain as different than before and moving into her back. With her newly discovered AAA decided to send for stat CT to make sure it was not rupturing or changing. Informed interventional cardiology of worsening epigastric pain and discomfort after being well controlled for last several hours as well as her having a 10 beat run of V tach. Repleting Mag and Phos now, awaiting troponin. Will continue to follow closely and update cardiology with any changes.
--- NOTE | 2019-12-29 05:38 | Billing Data ---
Date of Service December 29, 2019 Coding Level of Care Code 16834 Initial Inpt Care Lvl 3
[2019-12-29 05:41] LABS: Estimated Average Glucose 123 mg/dl; Hemoglobin A1C 5.9 % (4.5-5.6)
[2019-12-29 05:57] LABS: Troponin I 53.8 ng/ml (0-0.045)
--- NOTE | 2019-12-29 07:13 | CT Scan Report ---
CT abdomen w IV con HISTORY: 64 years-old Female Abdominal Pain radiating to back acute generalized abdominal pain with radiation into the back. Reported history of abdominal aortic aneurysm COMPARISON: CT abdomen and pelvis and CTA of the chest 12/28/2019 TECHNIQUE: Multiple axial CT images of the abdomen were obtained following the intravenous administra tion of 93 mL Optiray 320. A dose lowering technique was used consistent with the principals of PRISCILA . FINDINGS: There is decreased enhancement of the subendocardial distribution of the mid lateral wall left ventri robin with decreased attenuation of the adjacent papilloma muscles. No significant atrophy, myocardial thickening or mural fibrofatty changes. Mild subsegmental bibasilar atelectasis/subpleural fibrotic c hanges. No pneumatosis or pneumoperitoneum. Spleen, pancreas and right adrenal gland are unremarkable. Mild thickening of the left adrenal gland. There is mild gallbladder distention with equivocal gallbladder wall thickening. No pericholecystic fluid or cholelithiasis. Unremarkable appearance of the liver. Patency of the hepatic and portal vein s. No significant biliary ductal dilation or choledocholithiasis. Cyst of the medial interpolar left kidney, 3.6 cm. No definite renal calculi or hydronephrosis. Fusiform aneurysmal dilation of the infrarenal abdominal aorta measures 4.2 x 4.0 cm with extensive m ural thrombus and calcified plaque. Aneurysm sac measures up to approximately 10.0 cm in cranial caud al dimension without extension into the iliac bifurcation. No evidence of aneurysm rupture or retrope ritoneal hematoma. Unremarkable IVC. No adenopathy. No bowel obstruction or bowel wall thickening. Mi ld fecal retention. No ascites or mesenteric inflammation. Soft tissues are unremarkable. Remote appe aring wedge deformity at T12. IMPRESSION: 1. Fusiform aneurysmal dilation of the infrarenal abdominal aorta extending to the level of the iliac bifurcation measures up to 4.2 x 4.0 cm is again noted to demonstrate extensive mural thrombus witho ut evidence of rupture. 2. Decreased enhancement of the subendocardial mid aspect of the lateral wall left ventricle with hyp oenhancement of the adjacent papillary musculature. This finding could be correlated with serial Trop onin levels and clinical presentation to exclude acute myocardial infarction. This finding was called /faxed to the floor at time of dictation. 3. Mild gallbladder distention with equivocal wall thickening. Right upper quadrant ultrasound may be considered. ACT 112: Negative or not required by law. The above report was generated using voice recognition software. It may contain grammatical, syntax o r spelling errors. Electronically signed by: Terrence Hutchison M.D. 12/29/2019 7:12 AM
[2019-12-29] MEDS ORDERED: fentaNYL citrate 100 MCG/2 ML VIAL ONE (08:49)
[2019-12-29] MEDS ORDERED: MIDAZOLAM HCL 1 MG/ML 2ML VIAL ONE (08:49)
[2019-12-29] MEDS ORDERED: HEPARIN (PORCINE) 1000 UNIT/ML 10 ML (CATH LAB USE ONLY) ONE (08:49)
[2019-12-29] MEDS ORDERED: NiCARDipine HCL INJ 2.5 MG/ML 10 ML AMP ONE (08:49)
[2019-12-29] MEDS ORDERED: NITROGLYCERIN/D5W 100MCG/ML 20ML SYR ONE (08:50)
[2019-12-29] MEDS ORDERED: AMLODIPINE BESYLATE 5 MG TAB PO SCH (09:00)
--- NOTE | 2019-12-29 09:42 | XCELERA ---
[id number] \\[id number]
[2019-12-29] MEDS ORDERED: SODIUM CHLORIDE 0.9% 500 ML IV PRN (10:05)
[2019-12-29] MEDS ORDERED: ONDANSETRON INJ 2 MG/ML 2 ML VIAL IV PRN (10:05)
--- NOTE | 2019-12-29 10:22 | Post Anesthesia Assessment ---
Date of Service December 29, 2019 Post Sedation Assessment Vital Signs Temp Pulse Pulse Pulse Resp BP BP 12/29/19 10:10 65 14 125/77 12/29/19 09:55 64 14 120/73 12/29/19 09:34 72 12/29/19 08:41 65 18 12/29/19 07:36 36.7 C 58 L 20 110/69 12/29/19 06:03 55 L 12/29/19 04:23 36.5 C 77 18 12/28/19 23:51 65 24 137/89 12/28/19 23:30 65 24 137/89 12/28/19 23:00 67 24 143/87 H 12/28/19 22:30 67 21 107/87 12/28/19 22:02 84 25 H 125/85 12/28/19 22:00 86 24 125/85 12/28/19 21:54 80 21 140/87 12/28/19 21:40 76 23 140/87 12/28/19 21:00 67 24 150/88 H 12/28/19 20:33 60 59 L 18 169/95 H 12/28/19 20:30 65 26 H 169/95 H 12/28/19 20:06 36.4 C L 76 19 159/95 H BP Pulse Ox 12/29/19 10:10 96 12/29/19 09:55 95 12/29/19 09:34 12/29/19 08:41 120/74 12/29/19 07:36 96 12/29/19 06:03 128/67 12/29/19 04:23 120/77 98 12/28/19 23:51 96 12/28/19 23:30 96 12/28/19 23:00 100 12/28/19 22:30 99 12/28/19 22:02 97 12/28/19 22:00 99 12/28/19 21:54 98 12/28/19 21:40 94 12/28/19 21:00 97 12/28/19 20:33 100 12/28/19 20:30 98 12/28/19 20:06 100 Recovery Score Activity: Moves 4 extremities Respiration: Deep Breath/Cough Circulation: +/-20% PreAnes Value Consciousness: Fully Awake Oxygen Saturation: > 92% On Room Air Post Anesthesia Score: 10 Discharge Sedation Level of Care: Phase I Post Sedation Plan On clinical assessment, the patient appears to have tolerated the sedation without complications. Patient is recovering as anticipated. Patient will continue to be monitored by nursing and may be discharged when sedation discharge criteria are met per below protocol. Upon Completions of procedure up to 15 minutes continue every 5 minute vital signs and the P.A.R. score; then discharge to a Phase I or Fast Track to Phase II per the following guidelines: * Discharge Patient to appropriate Phase II area if PAR is 8 or greater or return to pre- procedure baseline. The post - procedure orders will be as directed. * If PAR score is less than 8 or not return to pre-procedure baseline then patient will follow Phase I monitoring till PAR is reached for Phase II. The Phase I may be done in procedure room or may call to secure a Phase I area. * If naloxone or flumazenil are used for reversal, hold in Phase I for continued monitoring from when last reversal dose was given for a minimum of 60 minutes or longer pending the nurse and/or physician discretion of patient condition before discharge to Phase II. Please call the Sedation Physician to re-evaluate and complete post-note for discharge to Phase II area. Do NOT discharge from procedure sedation or Phase 1 until post- sedation evaluation note is complete by procedure /sedation MD Sedation Discharge Instructions to be given to the patient at discharge to home.
--- NOTE | 2019-12-29 10:22 | Pre Anesthesia Assessment ---
Date of Service December 29, 2019 Pre Sedation Assessment Vital Signs Temp Pulse Pulse Pulse Resp BP BP 12/29/19 10:10 65 14 125/77 12/29/19 09:55 64 14 120/73 12/29/19 09:34 72 12/29/19 08:41 65 18 12/29/19 07:36 36.7 C 58 L 20 110/69 12/29/19 06:03 55 L 12/29/19 04:23 36.5 C 77 18 12/28/19 23:51 65 24 137/89 12/28/19 23:30 65 24 137/89 12/28/19 23:00 67 24 143/87 H 12/28/19 22:30 67 21 107/87 12/28/19 22:02 84 25 H 125/85 12/28/19 22:00 86 24 125/85 12/28/19 21:54 80 21 140/87 12/28/19 21:40 76 23 140/87 12/28/19 21:00 67 24 150/88 H 12/28/19 20:33 60 59 L 18 169/95 H 12/28/19 20:30 65 26 H 169/95 H 12/28/19 20:06 36.4 C L 76 19 159/95 H BP Pulse Ox 12/29/19 10:10 96 12/29/19 09:55 95 12/29/19 09:34 12/29/19 08:41 120/74 12/29/19 07:36 96 12/29/19 06:03 128/67 12/29/19 04:23 120/77 98 12/28/19 23:51 96 12/28/19 23:30 96 12/28/19 23:00 100 12/28/19 22:30 99 12/28/19 22:02 97 12/28/19 22:00 99 12/28/19 21:54 98 12/28/19 21:40 94 12/28/19 21:00 97 12/28/19 20:33 100 12/28/19 20:30 98 12/28/19 20:06 100 Pre-Sedation Airway Assessment Smoking Status: Current every day smoker Hx Sleep Apnea: No Short, Thick Neck: Yes Thyromental Distance: > or= 3.5 Finger Breadths Mallampati Class: II ASA: ASA3 NPO Status Date of Last Intake of Fluids: 12/28/19 Time of Last Intake of Fluids: 22:00 Date of Last Intake of Solid Food: 12/28/19 Time of Last Intake of Solid Foods: 22:00 Notes The planned sedation has been discussed with the patient. Informed Consent was obtained. I have identified the patient, determined the appropriateness of sedation and have assessed the patient immediately prior to the procedure. All medicine(s) and interventions are by my order.
[2019-12-29] MEDS: ASPIRIN 81 MG ECTAB PO SCH (10:34)
--- NOTE | 2019-12-29 10:48 | Cardiac Catheterization ---
Cardiac Cath Procedure Full Procedure Date December 29, 2019 Pre-Procedure Diagnosis Pre-Procedure Diagnosis: Non STEMI AUC Score AUC Score: 09 Post-Procedure Diagnosis Post-Procedure Diagnosis: Severe CAD Procedure(s) Performed Procedure(s) Performed: Coronary Angiography, Left Heart Cath and LV Angiography Finishing Department Supervisor Bj Joseph MD Estimated Blood Loss Estimated Blood Loss: <10 ml Medication(s) Medication(s): Aspirin, Fentanyl, Heparin, Lidocaine 1%, Nicardipine, Nitroglycerin and Versed Summary of Findings LMT: large and trifurcates. No disease. LAD: large and transapical. proximal with long eccentric calcified stenosis extending into early mid vessel. 50-60% stenosis. Tortuous mid and distal LAD with mild irregularities. D1-medium caliber with ostial 70% and S1 with 90% ostial stenosis (from LAD stenosis). D2 medium and no disease. LCx: large caliber and dominant. proximal AV groove with long eccentric 20-30%. No observable OM's. Terminates distally as a large caliber, branching PLB. No disease. Ramus: medium caliber (1.5-2.0 mm diameter) 100% occluded proximally. Fills distally late via L->L collaterals. Attempted to pass PCI wire but unsuccessful (Subacute or chronic total occlusion). Suspect this is culprit. Vessel diameter precludes stent. Suspect ramus provides lateral myocardium rather than OM's. RCA: small caliber, non dominant. No disease. LVEF: 50-55% normal anterior and inferior wall motion. Carlyle not well visualized. See echo for better assessment. Hemodynamics Rest Ao:: 114/68 mm Hg, mean 90 mm Hg Final Ao: 122/62 mm Hg, mean 87 mm Hg LV: 122/6 mm Hg, LVEDP 24 mm Hg Recommendations Recommendations: Medical Therapy and/or Counseling (beta kaelyn, high intensity statin, +/- ACEi/ARB. Tobacco cessation.) and Management Recommendatons (Patient CP is pleuritic and likely had FL causing inflammation/carditis. Try NSAIDS, colchicine.) Specimens Specimens: None Radiation Exposure (mGy) 1010 Contrast (mls) 105 ml Procedural Complication(s) None Disposition Maintenance Groundskeeper Holding/Recovery I attest to the content of the Intraoperative Record and any orders documented therein. Any exceptions are noted below. ACC Data: Maintenance Groundskeeper Cardiac Status Clinical evaluation leading to the procedure CAD Presenation: Non STEMI Anginal Classification: CCS III Heart Failure: No Cardiogenic Shock within 24 Hours: No Cardiac Arrest within 24 Hours: No Imaging Studies Past 6 Months: No Stress Studies Past 6 Months: No STEMI OR Non-STEMI Symptom Onset Date: 12/28/19 Symptom Onset Time: 02:00 Thrombolytics: No Coronary Anatomy Dominant: Left Left Main (% Stenosis): Normal LAD (% Stenosis): Proximal D1 (% Stenosis): Ostial (70%) Circumflex (% Stenosis): Proximal (20-30%) RCA (% Stenosis): Normal Ramus (% Stenosis): Proximal (100%) Left Ventricular Angiography EF (%): 50-55 Wall Motion: Anterior (Normal), Apical (not well seen) and Inferior (Normal) Diagnostic Physicians Name: Bj Joseph MD Status: Urgent Closure Device Percutaneous Entry Location: Radial Closure Device: Angio-Seal Recommendations: Medical Therapy and/or Counseling (beta kaelyn, high intensity statin, +/- ACEi/ARB. Tobacco cessation.) and Management Recommendatons (Patient CP is pleuritic and likely had FL causing inflammation/carditis. Try NSAIDS, colchicine.) Lesion Segment Name: proximal ramus Culprit Artery: Yes Stenosis Prior to Rx (%): 100% Chronic Total Occlusion: Yes Pre-Procedure LINO Flow: 0 Previously Treated Lesion: No Lesion Complexity: Non-High/Non-C Thrombus Present: No Bifurcation Lesion: No Guidewire Across Lesion: No Intraprocedure Events Significant Disection: No Perforation: No
[2019-12-29] MEDS ORDERED: KETOROLAC TROMETHAMINE 15 MG/ML VIAL IV PRN (11:08)
[2019-12-29] MEDS ORDERED: KETOROLAC TROMETHAMINE 15 MG/ML VIAL ONE (11:09)
[2019-12-29] MEDS ORDERED: KETOROLAC TROMETHAMINE 15 MG/ML VIAL IV ONE (11:15)
[2019-12-29] MEDS: METOPROLOL TARTRATE 25 MG TAB PO SCH ×2 (12:01→21:48)
[2019-12-29] MEDS: ATORVASTATIN 40 MG TAB PO SCH (12:02)
--- NOTE | 2019-12-29 13:21 | Medical Student Progress Note ---
Date of Service December 29, 2019 Assessment & Plan (1) Epigastric pain: Keri is a 64-year-old female with a past medical history of hypertension and COPD who presented to the emergency department on 12/28/19 secondary to sharp epigastric pain and dyspnea. Initial workup revealed a non-concerning ECG, an elevated Troponin and a partially clot-filled abdominal aortic aneurysm. Initial suspicion of an NSTEMI prompted non-emergent cardiac catheterization. Based on catheterization results and patient history suggesting possible subacute KS two weeks ago, myocarditis secondary to previous myocardial infarction is suspected. NSTEMI: The patient's symptoms of epigastric pain and dyspnea with elevated Troponin warranted suspicion and initial management for an atypical myocardial infarction. -No ST elevation on ECG -Initial Troponin of 44.9. Peaked at 53.8 -Aspirin 324 mg PO, Nitroglycerin 0.4 mg. and Heparin drip initiated in emergency department and admitted to PCU on Telemetry -Consulted Dr. Joseph of Cardiology * Echocardiogram performed: Normal LV systolic function, size, and wall thickness. EF 50-55%. Moderate to severe hypokinesis of mid to distal lateral and anterolateral hilliard. Mild hypokinesis of distal anterior wall. Mild mitral regurgitation. * Cardiac Catheterization performed: 50% occlusion of LAD. No stents placed. * Started Ibuprofen 600 mg PO Q6H due to suspicion of Myocarditis secondary to subacute KS which happened 2 wks ago. -Recheck renal function labs due to use of contrast dye -Vascular risk factors assessed: * HbA1c 5.9 % * Lipid Panel: Total Cholesterol 191, LDL 125, HDL 21, Triglycerides 103 -Begin long-term pharmacologic interventions to decrease risk of future coronary events * Atorvastatin 40 mg PO QAM * Aspirin 81 mg PO daily * Metoprolol tartrate 25 mg PO BID -Continue Acetaminophen 650 PO Q4H PRN -Continue Heparin drip Abdominal Aortic Aneurysm -Abdominal CT revealed 4.2 cm x 4.0 cm aneurysmal dilation of the infrarenal abdominal aorta to the iliac bifurcation -Recommend abdominal ultrasound in 6 months to monitor growth * If stable at this time, most likely repeat screening ultrasound in 1 year * If there is evidence of growth at a rate of > 1 cm/year or a total diameter > 5 cm, consider surgical intervention Asymptomatic Gallbladder Distension and Wall Thickening -incidental finding of gallbladder distension and wall thickening on abdominal CT -AST 277, ALT 46, ALP 111 Hypertension -Continue Amlodipine 5 mg daily -Metoprolol tartrate prescribed secondary to myocardial infarction * Monitor blood pressure during inpatient stay and modify dose if needed if blood pressure becomes too low * Consider checking orthostatic blood pressures prior to discharge Hypokalemia -Repleted potassium due to initial value of 3.4 DVT Prophylaxis: Heparin drip FEN: Normal saline 1000 mls @ 100 mls/hr Q10H Code Status: Full Code Disposition: Telemetry Supervising Attestation Medical Student Supervision Note: I independently interviewed and examined the patient and verified the valles history and physical, reviewed labs and image studies, discussed the case with the medical student Rene Ramirez and the resident Dr. Pedro Nino and agree with the findings and care plan. Subjective Keri Russo is a 64-year-old female with a past medical history of hypertension and COPD who presented to the emergency room on 12/28/19 with sharp epigastric pain and shortness of breath. She states that the epigastric pain and dyspnea began around 2:30 AM and awoke her from sleep. She states that thee pain was a 10/10 and it persisted throughout the day despite staying in bed and limiting movement. She was eventually driven to the emergency department by her . Upon presentation, she was hemodynamically stable and afebrile. She continued to endorse a sharp, non-radiating epigastric pain and dyspnea, but she denied chest pain, palpitations, vomiting, cough, lightheadedness, or confusion. She also den ied calf pain or leg swelling. An ECG in the emergency department did not show any ST segment changes. CTA of the chest was negative for pulmonary embolism or aortic dissection, but abdominal CT revealed a 4 cm abdominal aortic aneurysm with clotted blood and no active blood flow. Troponin I was also found to be elevated to 40. She was admitted to PCU on telemetry and treated as an NSTEMI with nitroglycerin, aspirin, and a heparin drip. She underwent an echocardiogram and cardiac cath the following morning that was performed by Dr. Joseph. Following the catheterization, Keri states that she tolerated the procedure well and does not have any concerns at this timel. She currently denies any epigastric pain and she continues to deny chest pain, palpitations, lightheadedness, vomiting, or confusion. She also does not endorse dyspnea at rest. Review of Systems Constitutional: no fever, no chills, no body aches and no fatigue Respiratory: as per Subjective / HPI Cardiovascular: as per Subjective / HPI Gastrointestinal: as per Subjective / HPI Neurologic: + problem reported Physical Exam Constitutional: WD/WN, vitals as above Eyes: PERRL, conjunctivae normal, anicteric sclerae ENMT: external ear and nose normal, oropharynx normal Respiratory: normal respiratory effort, lungs clear to auscultation Cardiovascular: RRR, no murmur, no edema Heart Sounds: normal S1 and normal S2; no cardiac rub Palpation: normal PMI; S3 nonpalpable and S4 nonpalpable Vessels: no JVD and no carotid bruit Gastrointestinal (Abdomen): normal bowel sounds, soft, nontender, no hepatosplenomegaly Percussion/Palpation: no pulsatile mass Skin: no rashes, warm and dry Results & Data ([facility]) Vital Signs (Past 12 Hours) Vital Signs Temp Pulse Pulse Pulse Resp BP BP 12/29/19 12:31 36.3 C L 65 18 101/63 12/29/19 12:10 66 111/69 12/29/19 11:40 64 109/66 12/29/19 10:50 60 12/29/19 10:48 36.5 C 67 18 117/70 12/29/19 10:38 36.5 C 63 20 113/73 12/29/19 10:35 36.5 C 58 L 18 118/79 12/29/19 10:14 36.6 C 60 20 112/71 12/29/19 10:10 65 14 125/77 12/29/19 09:55 64 14 120/73 12/29/19 09:34 72 12/29/19 08:41 65 18 120/74 12/29/19 07:36 36.7 C 58 L 20 110/69 12/29/19 06:03 55 L 128/67 12/29/19 04:23 36.5 C 77 18 120/77 Pulse Ox 12/29/19 12:31 94 12/29/19 12:10 12/29/19 11:40 12/29/19 10:50 12/29/19 10:48 94 12/29/19 10:38 95 12/29/19 10:35 95 12/29/19 10:14 93 12/29/19 10:10 96 12/29/19 09:55 95 12/29/19 09:34 12/29/19 08:41 12/29/19 07:36 96 12/29/19 06:03 12/29/19 04:23 98 Laboratory Results Troponin I 44.9 >>51.0 Activated PTT 85.8 seconds WBC 16.7, Hgb 16.7 BUN 19, Cr 0.77 AST 277, ALT 46 LDH 715 Lipase 151 Sodium 138, Potassium 3.4, Magnesium 1.9, Calcium 9.5 HbA1c 5.9 Lipid Panel: Total cholesterol 191, LDL 125, HDL 21, Triglycerides 103 HCV screen Negative Diagnostic Findings CT abdomen/pelvis: 4.2 cm x 4.0 cm partially clot-filled Abdominal aortic aneurysm spanning between the renal arteries and iliac bifurcation -Mild gallbladder distension and wall thickening Chest CTA: No evidence of PE or aortic dissection Echocardiogram: -Normal LV systolic function, size, and wall thickness -EF 50-55% -Mild to moderate hypokinesis of mid to lateral and anterolateral hilliard -Mild hypokinesis of distal anterior wall -Mild mitral regurgitation Cardiac Cath: 50% occlusion of LAD Resident Activity Tracking Resident Involvement: Resident Care Provided Care Provided: Adult [facility]
--- NOTE | 2019-12-29 14:21 | Electrocardiogram Report ---
Test Reason : Blood Pressure : / mmHG Vent. Rate : 066 BPM Atrial Rate : 066 BPM P-R Int : 132 ms QRS Dur : 094 ms QT Int : 422 ms P-R-T Axes : 073 073 111 degrees QTc Int : 442 ms Normal sinus rhythm Possible Left atrial enlargement Abnormal ECG No previous ECGs available Confirmed by Onel Woods ([id number]) on 12/29/2019 2:21:13 PM Referred By: REFERRED SELF Confirmed By:Onel Woods
--- NOTE | 2019-12-29 14:29 | Electrocardiogram Report ---
Test Reason : Blood Pressure : / mmHG Vent. Rate : 068 BPM Atrial Rate : 068 BPM P-R Int : 138 ms QRS Dur : 088 ms QT Int : 452 ms P-R-T Axes : 078 079 144 degrees QTc Int : 480 ms Normal sinus rhythm Abnormal ECG When compared with ECG of 29-DEC-2019 04:35, No significant change was found Confirmed by Onel Woods ([id number]) on 12/29/2019 2:29:15 PM Referred By: REFERRED SELF Confirmed By:Onel Woods
--- NOTE | 2019-12-29 14:40 | Electrocardiogram Report ---
Test Reason : Blood Pressure : / mmHG Vent. Rate : 057 BPM Atrial Rate : 057 BPM P-R Int : 138 ms QRS Dur : 092 ms QT Int : 456 ms P-R-T Axes : 076 075 134 degrees QTc Int : 443 ms Sinus bradycardia Left atrial enlargement Abnormal ECG When compared with ECG of 28-DEC-2019 20:17, No significant change was found Confirmed by Onel Woods ([id number]) on 12/29/2019 2:39:47 PM Referred By: REFERRED SELF Confirmed By:Onel Woods
--- NOTE | 2019-12-29 16:42 | Cardiology Consultation ---
Date of Consultation December 29, 2019 Assessment & Plan (1) Acute lateral wall myocardial infarction: Timing of infarct uncertain, she did have symptoms a week ago and the inability to pass a wire suggests possible subacute phenomenon. In addition, her troponin was markedly elevated on admission, suggesting a prior event. However, there was further elevation in a peak and decay fashion suggesting possible infarct extension prompting symptoms last evening. Given her epigastric tenderness and some pleuritic component to her symptoms, she may have a myocarditis/pericarditis type post infarct inflammatory phenomenon. She is on aspirin and intravenous heparin for antiplatelet/anticoagulant therapy. On atorvastatin 40 mg daily for lipid-lowering therapy. On metoprolol and Nitropaste to address supply/demand issues during the morales- infarct timeframe. She is also receiving nonsteroidal agent for her presumed pericarditis component and as needed morphine as an analgesic. She has been hemodynamically stable and her symptoms are improving. There were no lesions amenable to revascularization, continue medical management. We will follow along closely. (2) Abdominal aortic aneurysm: No evidence of leakage or impending rupture from her abdominal aortic aneurysm. At this point, this seems to be an incidental finding, will need serial monitoring as an outpatient to determine whether future intervention will be necessary. (3) COPD (chronic obstructive pulmonary disease): No active bronchospasm. Has not required supplemental oxygen at home. (4) HTN (hypertension): BP controlled on lisinopril, amlodipine, and metoprolol. History of Present Illness Reason for Consultation: NSTEMI Requesting Physician: Jae Cedillo MD Attending Physician: Amanda Lagos MD History of Present Illness 64-year-old woman with history of COPD and hypertension, no known cardiac history, who was admitted late 12/28/2019 with dyspnea and epigastric pain which awoke her from sleep. She had similar symptoms about a week ago which resolved after half an hour without evaluation or intervention. ER evaluation showed lateral T wave abnormalities, markedly elevated troponin (40), and a CT of the abdomen which showed a 4 cm AAA without evidence of rupture. Due to ongoing symptoms, ECG changes, and elevated troponin, she was taken for cardiac catheterization which showed the following: Left main: No disease. LAD: Moderate (50-60%) mid vessel stenosis, with branch vessel disease (70% D1, 90% S1). Circumflex: Large caliber/dominant with mild stenoses only (20 to 30%). Right coronary artery: Small caliber/nondominant, no disease. Ramus intermedius: Medium caliber, totally occluded proximally, fills distally late via left to left collaterals, inability to pass wire suggested subacute or chronic total occlusion. [employer] to be culprit vessel. Vessel diameter precluded stent. Echocardiogram showed EF 50 to 55% with moderate to severe lateral/anterolateral wall hypokinesis. Patient still notes some mild epigastric discomfort, significantly less than upon presentation. Due to her ongoing symptoms, she did undergo a second abdominal CT to further confirm there is no evidence of abdominal aortic aneurysm rupture. She denies any subjective palpitations, chest pain, dyspnea, or focal neurologic symptoms. She was resting fairly comfortable at the time of my evaluation late afternoon. Allergies Allergy/AdvReac Type Severity Reaction Status Date / Time No Known Allergies Allergy Mild Verified 12/28/19 21:30 Home Medications Home Medications Medication Instructions Recorded Confirmed Type amlodipine 5 mg tablet 5 mg PO DAILY #30 tab 10/04/19 12/28/19 Rx Patient History Medical History COPD (chronic obstructive pulmonary disease) HTN (hypertension) Surgical History H/O: hysterectomy Social History Preferred Language: Panamanian Communication Ability: Effective Echo Technician Required: No Beliefs That Will Affect Care: None Current Living Situation: Spouse Other Information That Helps Us Care for You: Yes (has a support dog) Feels Safe at Home: Yes Smoking Status: Current every day smoker Tobacco Type: cigarettes ; Cigarettes Per Day: 5 ; Tobacco Cessation Education Requested by Patient: No Hx Alcohol Use: Yes Hx Substance Use: No Review of Systems Constitutional: + fatigue; no fever, no chills, no weight loss and no weight gain Eyes: no problem reported Ear, Nose, Mouth, Throat: no problem reported Respiratory: as per Subjective / HPI Cardiovascular: as per Subjective / HPI Gastrointestinal: + abdominal pain; no change in stools Genitourinary: no problem reported Musculoskeletal: no myalgia Integumentary: no rash and no new lesions Neurologic: no falls and no syncope Psychiatric: no problem reported Hematologic / Lymphatic: no easy bleeding and no easy bruising Physical Exam Physical Exam: Normal habitus middle-aged white female in no distress. Afebrile. Normotensive. Pulse 60 and regular. Respirations 18. Skin: No ecchymoses or generalized lesions. HEENT: Unremarkable. Neck: No carotid bruits or jugular venous distention. Lungs: Mildly decreased breath sounds but clear. Cardiac: Regular rhythm regular rhythm with normal S1 and S2, 2/6 apical holosystolic murmur which is nonradiating. No rub or gallop. Abdomen: Mild epigastric tenderness. No guarding or rigidity. Extremities: No edema. Peripheral pulses brisk. Neurologic: Normal affect and conversation, nonfocal. Results & Data ([facility]) Laboratory Results 12/28/19 12/29/19 12/29/19 20:20 04:11 05:32 Creatinine 0.77 Troponin I 44.900 H* 53.800 H* 51.000 H* 12/29/19 16:20 Creatinine Troponin I 31.800 H* Diagnostic Findings Echocardiogram showed EF 50 to 55% with moderate to severe hypokinesis of the mid to distal lateral and anterolateral hilliard, mild hypokinesis of the distal anterior wall. All other hilliard move normally. Mild mitral regurgitation with normal left atrial size. Abdominal CT showed 4.2 cm partially clot filled mid abdominal aortic aneurysm extending both superior and inferior to the renal arteries, no evidence of aneurysmal leak. Chest CT showed no evidence of pulmonary embolism, there is mild peribronchiolar thickening. Second CT of the abdomen again showed AAA without evidence of rupture. There were enhancement changes of the lateral left ventricular wall consistent with myocardial infarction. Also mild gallbladder distention with equivocal wall thickening. Cardiac catheterization results as detailed in history of present illness. PG Care Time/CCT Total # of Minutes Spent Total Time Spent with Patient: Total time spent is greater than 50% in coordination of care (as documented) at patient's floor/unit and/or counseling patient: Coding Level of Care Code 80008 Inpt Consult Level 4 Diagnoses Acute lateral wall myocardial infarction I21.29 Abdominal aortic aneurysm I71.4 COPD (chronic obstructive pulmonary disease) J44.9 HTN (hypertension) I10
[2019-12-29 16:50] LABS: Partial Thromboplastin Ratio 2.1
[2019-12-29 16:55] LABS: Partial Thromboplastin Time 57.5 Seconds (21.0-31.0)
[2019-12-30] MEDS: NITROGLYCERIN 2% OINTMENT 30GM TUBE EXT SCH ×3 (01:00→12:47)
[2019-12-30] MEDS: HEPARIN SODIUM/DEXTROSE 25,000 UNITS/500 ML BAG IV SCH (01:05)
[2019-12-30] MEDS ORDERED: KETOROLAC TROMETHAMINE 15 MG/ML VIAL IV ONE (05:09)
[2019-12-30 06:33] LABS: Basophils # (auto) 0.05 K/uL (0-0.2); Basophils % (auto) 0.4 %; Eosinophils # (auto) 0.11 K/uL (0-0.5); Eosinophils % (auto) 0.9 %; Hemoglobin 12.9 g/dL (12.0-16.0); Immature Granulocytes # (auto) 0.05 K/uL (0.00-0.02); Immature Granulocytes % (auto) 0.4 %; Lymphocytes # (auto) 3.73 K/uL (1.2-3.4); Lymphocytes % (auto) 31.3 %; Mean Corpuscular Hemoglobin 31.2 pg (25-34); Mean Corpuscular Hgb Conc 33.1 g/dL (32-36); Mean Corpuscular Volume 94.2 fL (80-100); Mean Platelet Volume 10.8 fL (7.4-10.4); Monocytes # (auto) 1.13 K/uL (0.11-0.59); Monocytes % (auto) 9.5 %; Neutrophils # (auto) 6.83 K/uL (1.4-6.5); Neutrophils % (auto) 57.5 %; Platelet Count 174 K/uL (130-400); RDW Coefficient of Variation 13.3 % (11.5-14.5); RDW Standard Deviation 46.2 fL (36.4-46.3); Red Blood Count 4.14 M/uL (4.2-5.4)
[2019-12-30 06:43] LABS: Partial Thromboplastin Ratio 2.1
[2019-12-30 06:46] LABS: BUN Creatinine Ratio 28.8 (10-20); Calcium 8.6 mg/dl (8.5-10.1); Creatinine Clr Calc Pharmacy 86.9 ml/min; Est GFR (African American) 111.2; Phosphorus 2.2 mg/dl (2.5-4.9); Potassium 3.4 mmol/L (3.5-5.1)
[2019-12-30 06:47] LABS: Partial Thromboplastin Time 59.7 Seconds (21.0-31.0)
[2019-12-30] MEDS ORDERED: lisinopriL 5 MG TAB PO SCH (09:00)
[2019-12-30] MEDS: ASPIRIN 81 MG ECTAB PO SCH (09:30)
[2019-12-30] MEDS: ATORVASTATIN 40 MG TAB PO SCH (09:30)
[2019-12-30] MEDS: METOPROLOL TARTRATE 25 MG TAB PO SCH ×2 (09:30→20:30)
--- NOTE | 2019-12-30 12:00 | Electrocardiogram Report ---
Test Reason : Blood Pressure : / mmHG Vent. Rate : 055 BPM Atrial Rate : 055 BPM P-R Int : 136 ms QRS Dur : 092 ms QT Int : 460 ms P-R-T Axes : 068 070 131 degrees QTc Int : 440 ms Sinus bradycardia with sinus arrhythmia Left atrial enlargement Recent Lateral infarct Minor ST depression in Inferior leads Minor ST depression in Anterolateral leads Abnormal ECG When compared with ECG of 29-DEC-2019 11:00, T wave inversion no longer evident in Anterolateral leads Confirmed by Onel Woods ([id number]) on 12/30/2019 12:00:35 PM Referred By: REFERRED SELF Confirmed By:Onel Woods
[2019-12-30] MEDS: ONDANSETRON INJ 2 MG/ML 2 ML VIAL IV PRN (12:05)
[2019-12-30] MEDS ORDERED: POTASSIUM CHLORIDE 20 MEQ TABCR PO ONE (12:15)
--- NOTE | 2019-12-30 12:46 | Medical Student Progress Note ---
Date of Service December 30, 2019 Assessment & Plan (1) Epigastric pain: Ms. Russo is a 64-year-old female with a past medical history of hypertension and COPD who presented to the emergency department on 12/28/19 secondary to sharp epigastric pain and dyspnea. Initial workup revealed a non-concerning ECG, an elevated Troponin and a partially clot-filled abdominal aortic aneurysm. Cardiac catheterization results were consistent with a subacute to chronic lateral wall myocardial infarction. Her current clinic presentation is most likely a result of post-RI myocarditis. NSTEMI: The patient's symptoms of epigastric pain and dyspnea with elevated Troponin warranted suspicion and initial management for an atypical myocardial infarction. Cardiac catheterization revealed subacute or chronic complete occlusion of the left ramus intermedius, suggesting a previous RI resulting in a post-RI myocarditis. -Initial lipase 151. Does not support acute pancreatitis as underlying cause of acute epigastric pain -Aspirin 324 mg PO, Nitroglycerin 0.4 mg. and Heparin drip initiated in emergency department and patient was admitted to PCU on Telemetry -Consulted Dr. Joseph of Interventional Cardiology * Echocardiogram performed: Normal LV systolic function, size, and wall thickness. EF 50-55%. Moderate to severe hypokinesis of mid to distal lateral and anterolateral hilliard. Mild hypokinesis of distal anterior wall. Mild mitral regurgitation. * Cardiac Catheterization performed on 12/29/2019: 50-60% stenosis of LAD. 20- 30% stenosis LCX. Complete occlusion of the left Ramus intermedius with inability to pass wire, suggesting subacute or chronic total occlusion. No s tents placed. * Started Ibuprofen 600 mg PO Q6H due to suspicion of Myocarditis secondary to previous subacute RI -Renal function stable following use of IV contrast during catheterization (BUN 18, Cr 0.62) -Troponin peaked at 51.0 -ECG (12/30/19): Sinus bradycardia with sinus arrhythmia. Minor ST depression in inferior and anterolateral leads. T wave inversion anterolateral leads. Findings suggestive of a lateral wall myocardial infarction -Vascular risk factors assessed: * HbA1c 5.9 % * Lipid Panel: Total Cholesterol 191, LDL 125, HDL 21, Triglycerides 103 -Begin long-term pharmacologic interventions to decrease risk of future coronary events * Atorvastatin 40 mg PO QAM * Aspirin 81 mg PO daily * Metoprolol tartrate 12.5 mg PO BID -Continue Heparin drip for 48 hours post-catheterization -Follow up with Dr. Woods as an outpatient - appt arranged for January 12 in [facility] [place] Abdominal Aortic Aneurysm -Abdominal CT revealed 4.2 cm x 4.0 cm aneurysmal dilation of the infrarenal abdominal aorta to the iliac bifurcation -Recommend abdominal ultrasound in 6 months to monitor growth * If stable at this time, most likely repeat screening ultrasound in 1 year * If there is evidence of growth at a rate of > 1 cm/year or a total diameter > 5 cm, consider surgical intervention Asymptomatic Gallbladder Distension and Wall Thickening -incidental finding of gallbladder distension and wall thickening on abdominal CT -AST 277, ALT 46, ALP 111 -No indication for further workup at this time Hypertension Keri was initially started on lisinopril and metoprolol. However, she became quite lightheaded with ambulation today. Therefore, we will scale back pharmacologic management and continue to monitor blood pressure closely. -Discontinued Amlodipine -Initially started Lisinopril 5 mg daily. Discontinued due to lightheadedness -Initially prescribed Metoprolol 25 mg BID. Reduced dose to 12.5 mg BID -Orthostatics WNL, however patient's BP has been significantly lower than her usual BP Hypokalemia -Repleted potassium due to initial value of 3.4 Benign Paroxysmal Positional Vertigo The patient endorses a long-standing history of brief, positional, episodic vertigo without signs of central vertigo suggest BPPV. -Consider outpatient follow up if problem persists for possible Dheeraj Maneuver DVT Prophylaxis: Heparin drip Code Status: Full Code Disposition: Telemetry, anticipate d/c tomorrow Supervising Attestation Medical Student Supervision Note: I independently interviewed and examined the patient and verified the valles history and physical, reviewed labs and image studies, discussed the case with the medical student Rene Ramirez and the resident Dr. Hitchcock and agree with the findings and care plan. Subjective Keri states that she is feeling well. She does endorse mild lower back pain, but she attributes it to the hospital bed. She also says that she slept very poorly last night. Otherwise, she does not have any concerns. She has been able to ambulate the hallway without chest pain or dyspnea. She also denies any pleuritic chest pain, palpitations, epigastric pain, nausea, vomiting, or change in bowel habits. She does endorse occasional lightheadedness both at rest and when ambulating but she denies any unsteadiness with gait, headache, visual disturbances, or changes in hearing. Upon further discussion regarding the patient's "lightheadedness" at home, she states that she has been experiencing episodic vertigo. She describes it as fe eling like the room is spinning, and she says the sensation most commonly occurs when she rolls over in bed. She says it only lasts a few seconds at a time before she is back to her baseline equilibrium. She also endorses tinnitus in both ears, but she denies any hearing loss or ataxia. Review of Systems Constitutional: no fever, no chills, no body aches and no fatigue Eyes: no problem reported Ear, Nose, Mouth, Throat: no problem reported Respiratory: as per Subjective / HPI Cardiovascular: as per Subjective / HPI Gastrointestinal: as per Subjective / HPI Physical Exam Constitutional: WD/WN, vitals as above Eyes: PERRL, conjunctivae normal, anicteric sclerae ENMT: external ear and nose normal, oropharynx normal Respiratory: normal respiratory effort, lungs clear to auscultation Cardiovascular: Rate/Rhythm: regular rate and regular rhythm Heart Sounds: normal S1, normal S2 and + murmur (2/6 holosystolic murmur at apex. no radiation to axilla); no cardiac rub Palpation: normal PMI; S3 nonpalpable and S4 nonpalpable Vessels: no JVD and no carotid bruit Gastrointestinal (Abdomen): normal bowel sounds, soft, nontender, no hepatosplenomegaly Percussion/Palpation: no pulsatile mass Skin: no rashes, warm and dry Results & Data ([facility]) Vital Signs (Past 12 Hours) Vital Signs Temp Pulse Pulse Resp BP Pulse Ox 12/30/19 11:18 62 12/30/19 10:48 36.8 C 67 18 92/55 L 96 12/30/19 07:01 36.6 C 61 19 106/66 95 12/30/19 04:02 36.4 C L 64 18 103/63 95 Laboratory Results Troponin: 31.8 (down from 51.0) Potassium 3.4, Magnesium 2.0, Phosphate 2.2 WBC 11.9 BUN 18, Cr 0.62 ECG Rate (beats per minute): 55 Rhythm: sinus bradycardia and sinus with SA Findings: + ST depression (Inferior, anterolateral) and + T-wave inversion (Anterolateral) Additional Comments: Left atrial enlargement Resident Activity Tracking Resident Involvement: Resident Care Provided Care Provided: Adult [facility]
--- NOTE | 2019-12-30 13:05 | XRay Report ---
XR chest 1V portable CLINICAL HISTORY: sob dyspnea COMPARISON STUDY: No previous studies for comparison. FINDINGS: The bones soft tissues and hemidiaphragms are normal. The cardiomediastinal silhouette is n ormal. The lungs are clear. The pulmonary vasculature is normal. IMPRESSION: Negative chest. ACT 112: Negative or not required by law. The above report was generated using voice recognition software. It may contain grammatical, syntax or spelling errors. Electronically signed by: Curtis Early M.D. 12/30/2019 1:04 PM
--- NOTE | 2019-12-30 16:39 | Cardiology Progress Note ---
Date of Service December 30, 2019 Assessment & Plan (1) Acute lateral wall myocardial infarction: Continue heparin through tonight to complete 48-hour course. Weighing the risks/benefits of Xarelto 2.5 mg twice daily for management of prothrombotic state post acute myocardial infarction. Although this is a consideration, may wait until she completes her course of nonsteroidal agents used for her presumed post infarct pericarditis (starting Xarelto and in a week or 2). May also consider addition of clopidogrel once her course of heparin is completed. Will reevaluate clinical status in the morning, if she is doing well she may be a candidate for discharge. (2) Post-infarction pericarditis: Continue use of IV and oral nonsteroidals to manage her discomfort. Would not use colchicine in this context (post infarct) in the absence of more severe or prolonged symptoms. (3) Epigastric pain: Likely secondary to her post infarct pericarditis, however will add a proton pump inhibitor for gastric protection in the context of ongoing anticoagulation. (4) Dizziness: Although not classically orthostatic, since her beta-kaelyn is meant to prevent tachycardia and hypertension (and she is exhibiting neither), appropriate to reduce the dose of metoprolol. (5) HTN (hypertension): Well-controlled, see above. (6) Tobacco use: Counseled extensively regarding the importance of tobacco cessation. Admission and Anticipated Discharge Date Admission Date: December 28, 2019 Subjective Although the patient feels well most of the time, she continues to have some e pigastric region discomfort which seems to be aggravated by certain changes in position. Also, she had an episode of dizziness which did not seem orthostatic (occurred when she was getting back in bed). She does note some degree of nausea, but has not had any vomiting. She denies any chest pain or dyspnea. Although vital signs today did not show orthostasis, her blood pressure is low normal and heart rate low normal to mildly bradycardic. Physical Exam Physical Exam: Normal habitus middle-aged white female in no distress. Afebrile. BP 108/68. Pulse 54 and regular. Respirations 18. Skin: No ecchymoses or generalized lesions. HEENT: Unremarkable. Neck: No carotid bruits or jugular venous distention. Lungs: Mildly decreased breath sounds but clear. Cardiac: Regular rhythm regular rhythm with normal S1 and S2, 2/6 apical holosystolic murmur which is nonradiating. No rub or gallop. Abdomen: Mild epigastric tenderness. No guarding or rigidity. Extremities: No edema. Peripheral pulses brisk. Neurologic: Normal affect and conversation, nonfocal. Results & Data ([facility]) Vital Signs (Past 12 Hours) Vital Signs Temp Pulse Pulse Pulse Resp BP Pulse Ox 12/30/19 15:59 59 L 12/30/19 15:46 97.7 F 53 L 18 108/68 98 12/30/19 11:18 62 12/30/19 10:57 59 L 109/66 12/30/19 10:48 98.2 F 67 18 92/55 L 96 12/30/19 07:01 97.9 F 61 19 106/66 95 Diagnostic Findings ECG today showed sinus bradycardia with recent lateral infarct and minor ST depression in the inferior and anterolateral leads. Compared with prior ECGs with T wave inversion previously noted in the anterolateral leads was no longer evident. PG Care Time/CCT Total # of Minutes Spent Total Time Spent with Patient: Total time spent is greater than 50% in coordination of care (as documented) at patient's floor/unit and/or counseling patient: Coding Level of Care Code 26760 Subseq Hosp Care Lvl 3 Diagnoses Acute lateral wall myocardial infarction I21.29 Post-infarction pericarditis I24.1 Epigastric pain R10.13 Dizziness R42 HTN (hypertension) I10 Tobacco use Z72.0
[2019-12-30] MEDS: FAMOTIDINE 20 MG TAB PO SCH (17:50)
[2019-12-30] MEDS: IBUPROFEN 600 MG TAB PO SCH ×2 (17:50→23:27)
[2019-12-30] MEDS: NICOTINE 14 MG/24 HR PATCH TD SCH (20:29)
[2019-12-31] MEDS: HEPARIN SODIUM/DEXTROSE 25,000 UNITS/500 ML BAG IV SCH (01:10)
[2019-12-31] MEDS: IBUPROFEN 600 MG TAB PO SCH (05:41)
[2019-12-31 07:09] LABS: Basophils # (auto) 0.06 K/uL (0-0.2); Basophils % (auto) 0.6 %; Eosinophils # (auto) 0.24 K/uL (0-0.5); Eosinophils % (auto) 2.5 %; Hematocrit (blood only) 37.8 % (37-47); Hemoglobin 12.5 g/dL (12.0-16.0); Immature Granulocytes # (auto) 0.05 K/uL (0.00-0.02); Immature Granulocytes % (auto) 0.5 %; Lymphocytes % (auto) 42.4 %; Mean Corpuscular Hemoglobin 31.2 pg (25-34); Mean Corpuscular Hgb Conc 33.1 g/dL (32-36); Mean Corpuscular Volume 94.3 fL (80-100); Mean Platelet Volume 11.4 fL (7.4-10.4); Monocytes # (auto) 0.87 K/uL (0.11-0.59); Monocytes % (auto) 9.2 %; Neutrophils # (auto) 4.21 K/uL (1.4-6.5); Neutrophils % (auto) 44.8 %; Platelet Count 214 K/uL (130-400); RDW Coefficient of Variation 13.6 % (11.5-14.5); Red Blood Count 4.01 M/uL (4.2-5.4); White Blood Count 9.43 K/uL (4.8-10.8)
[2019-12-31 07:27] LABS: Partial Thromboplastin Ratio 1.9
[2019-12-31 07:34] LABS: Partial Thromboplastin Time 52.1 Seconds (21.0-31.0)
[2019-12-31 07:55] LABS: BUN Creatinine Ratio 26.2 (10-20); Calcium 8.8 mg/dl (8.5-10.1); Creatinine Clr Calc Pharmacy 73.8 ml/min; Est GFR (African American) 101.6; Est GFR (Non-African American) 87.7
[2019-12-31] MEDS: ASPIRIN 81 MG ECTAB PO SCH (08:04)
[2019-12-31] MEDS: ATORVASTATIN 40 MG TAB PO SCH (08:04)
[2019-12-31] MEDS: FAMOTIDINE 20 MG TAB PO SCH (08:05)
[2019-12-31] MEDS: METOPROLOL TARTRATE 25 MG TAB PO SCH (08:09)
[2019-12-31] MEDS: NICOTINE 14 MG/24 HR PATCH TD SCH (08:10)
[2019-12-31] MEDS ORDERED: POLYETHYLENE (MIRALAX) 17 GM PACK PO PRN (10:20)
[2019-12-31] MEDS ORDERED: DOCUSATE SODIUM 100 MG CAP PO PRN (10:20)
--- NOTE | 2019-12-31 10:56 | Discharge Summary ---
Date of Service December 31, 2019 Admission HPI Per Admitting Provider Keri Russo is a 64-year-old woman with a past medical history significant for hypertension and COPD. She takes only amlodipine 5 mg at home. She is here today for epigastric pain and dyspnea that started around 2:30 AM and awoke her from sleep she decided to watch these symptoms to see if she would get better and to stay in bed for most of the day her epigastric pain persisted she describes it as a pretty sharp pain that she rates at times it about a 10 out of 10. Eventually she decided to come in, and on the drive and she did have a few episodes of dry heaving though she believes this was more due to pain than due to any nausea. She denies any palpitations, any syncope or presyncope, any neurological symptoms. In emergency department she was found to be hemodynamically stable, afebrile, though she has been tachypneic which she attributes to her anxiety over the circumstances. ECG without acute ST changes, troponin elevated to 40, CTA chest negative CT abdomen showing 4 cm abdominal aortic aneurysm with clotted blood and no active flow. Patient was given aspirin 325, nitroglycerin, and started on a heparin drip. She feels her pain is much improved and has gone from quite severe to more of a discomfort now that she rates it about a 1. She denies arlette chest pain, her abdominal pain does not seem to radiate to her back or anywhere else. She has not had vomiting, no fevers, no chills, no cough, no palpitations, No calf pain, no leg swelling, no syncope/presyncope, no headache, no confusion, she is endorsing anxiety. She has been about a half pack a day smoker since she was 18, she also smokes marijuana regularly, she was diagnosed with COPD but does not take any medication or need any oxygen. She is otherwise healthy and was in her usual state of health prior to going to be last night before being awoken by this pain. Admission Exam Per Admitting Provider Constitutional: Patient appears anxious fidgeting her hands together in bed, no longer as tachypneic, at bedside. Small amount of sweat on face Eyes: PERRLA, EOMMI ENMT: No external abnormalities detected Respiratory: No increased work of breathing, normal rate, chest expansion equal, lung sounds vesicular in all lung north, good air entry globally Card: Heart sounds dual, regular rate and rhythm, PMI normal, peripheral pulses strong and intact, skin appears well perfused in extremities GI: Abdomen soft and nontender, patient with epigastric pain though not made any worse by my palpation. no organomegaly appreciated, no pulsatile abdominal mass appreciated Skin: warm dry appearing well perfused Principal Diagnosis NSTEMI Discharge Exam General: Alert, oriented. Sitting up in bed. Skin: No noted rashes or bruises Psych: Appropriate mood and affect Neuro: No gross deficits HEENT: NC/AT, PERRLA, EOMI, oropharynx moist. Chest: Nontender to palpation. CV: RRR, Normal s1, s2. No murmurs appreciated Resp: Breath sounds clear bilaterally but decreased, no increased effort of breathing. No crackles/rhonchi/rales. Abdomen: Soft, nontender, nondistended. No guarding. No organomegaly appreciated. Extremities: No edema in lower extremities bilaterally. Discharge Data Allergies Allergy/AdvReac Type Severity Reaction Status Date / Time No Known Allergies Allergy Mild Verified 12/28/19 21:30 Consultations 12/29/19 05:09 Consult Cardiology Routine 12/30/19 18:24 Consult [employer] payment processor Routine Procedures Performed Operation Date: 12/29/19 08:30 Actual Procedures p Cardiac Cath Procedure - Bj Joseph MD s Cath, Left with Cors and Vent - Bj Joseph MD s Cineradiography w/Routine Exam - Bj Joseph MD Ordered Studies 12/28/19 20:21 CT abd pelvis IV con only Stat CT angio chest PE protocol Stat 12/29/19 04:57 CT abdomen w IV con Urgent 12/29/19 08:19 CL Cath Imgs for PACS use only Stat Hospital Course (1) Epigastric pain: Ms. Russo is a 64-year-old female with a past medical history of hypertension and COPD who presented to the emergency department on 12/28/19 secondary to sharp epigastric pain and dyspnea. Initial workup revealed a non- concerning ECG, an elevated Troponin and a partially clot-filled abdominal aortic aneurysm. Cardiac catheterization results were consistent with a subacute to chronic lateral wall myocardial infarction. Admitted 12/28/2019 and discharged on 12/31/2019. NSTEMI: The patient's symptoms of epigastric pain and dyspnea with elevated Troponin warranted suspicion and initial management for an atypical myocardial infarction. Cardiac catheterization revealed subacute or chronic complete occlusion of the left ramus intermedius, suggesting a previous WV 2 wks ago resulting in a post-WV myocarditis. -Started on IV heparin drip, Aspirin, NTG. -Consulted Dr. Joseph of Interventional Cardiology * Echocardiogram performed: Normal LV systolic function, size, and wall thickness. EF 50-55%. Moderate to severe hypokinesis of mid to distal lateral and anterolateral hilliard. Mild hypokinesis of distal anterior wall. Mild mitral regurgitation. * Cardiac Catheterization performed on 12/29/2019: 50-60% stenosis of LAD. 20- 30% stenosis LCX. Complete occlusion of the left Ramus intermedius with inability to pass wire, suggesting subacute or chronic total occlusion. No stents placed. -Troponin peaked at 51.0 -ECG (12/30/19): Findings suggestive of a lateral wall myocardial infarction -Was kept on Heparin drip for 48 hours post-catheterization. -Vascular risk factors assessed: * HbA1c 5.9 % * Lipid Panel: Total Cholesterol 191, LDL 125, HDL 21, Triglycerides 103 -Started on long-term pharmacologic interventions to decrease risk of future coronary events * Atorvastatin 40 mg PO QAM- continue on discharge * Aspirin daily. * Metoprolol tartrate 12.5 mg PO BID. Continued on discharge with instructions to monitor BP at home and skip dose as needed if hypotensive. * Discharged with Plavix 75mg daily as well, famotidine 20mg daily -Follow up with Dr. Woods as an outpatient - appt arranged for January 12 in [facility] Post [place] myocarditis -Started Ibuprofen 600 mg PO Q6H due to suspicion of Myocarditis secondary to previous subacute [place]. -Home on 325mg aspirin BID for a month. -Pepcid added for GI protection Abdominal Aortic Aneurysm -Abdominal CT revealed 4.2 cm x 4.0 cm aneurysmal dilation of the infrarenal abdominal aorta to the iliac bifurcation -Recommend abdominal ultrasound in 6 months to monitor growth * Repeat screening ultrasound in 1 year * If there is evidence of growth at a rate of > 1 cm/year or a total diameter > 5 cm, consider surgical intervention Asymptomatic Gallbladder Distension and Wall Thickening -incidental finding of gallbladder distension and wall thickening on abdominal CT -AST 277, ALT 46, ALP 111 -No indication for further workup at this time, PCP followup recommended. Hypertension Keri was initially started on lisinopril and metoprolol. However, she became quite lightheaded with ambulation. Therefore, it was scaled back to metoprolol 12.5mg BID. -Discontinued Amlodipine -Initially prescribed Metoprolol 25 mg BID. Reduced dose to 12.5 mg BID -Orthostatics WNL, however patient's BP has been significantly lower than her usual BP- continue to monitor outpatient. Hypokalemia -Repleted potassium due to initial value of 3.4 Benign Paroxysmal Positional Vertigo The patient endorses a long-standing history of brief, positional, episodic vertigo without signs of central vertigo suggest BPPV. -Consider outpatient follow up if problem persists for possible Dheeraj Maneuver Total Time Total Time Spent Total Time Spent (In Minutes): See attending attestation Discharge Plan Discharge Items Patient Disposition: Home - Self-Care Reason For Visit: NSTEMI Discharge Diagnosis: Myocardial Infarction Activity: Per Instructions section Non-emergency contact: Primary Care Provider and Straightening Press Operator Call non-emergency contact if: your symptoms worsen Follow-up/Referrals: PT,DECLINED [Primary Care Provider] - Diet: Heart Healthy Addtl Attending Provider Instructions: You were treated after you appeared to have a heart attack. We are discharging you with the following medications. Please take as directed. -Aspirin 325mg, one tab daily -Plavix 75mg , one tablet daily -Atorvastatin 40mg, 1 tablet daily. -Famotidine 20mg 1 tab daily -metoprolol tartrate 12.5mg (half a pill) twice a day. Take your blood pressure at home before taking this pill, and if you notice that your top number is less than 100 or your bottom number is less than 80, SKIP THAT DOSE. -STOP TAKING YOUR HOME AMLODIPINE. It is also strongly recommended that you stop smoking as stopping can decrease your risk of having another heart attack. Please follow-up with your primary care doctor within the next week after discharge. they will need to monitor your abdominal aneurysm noted on imaging in the hospital. It is also very important that you follow up with your clerk secretary as well. You have an appointment scheduled with Dr. Woods on January 13 2020. Should your symptoms return or you develop trouble breathing, chest pain, nausea or vomitting or faint/"pass out", please go to the nearest emergency department. It was a pleasure taking care of you during your stay! Pending Studies at Discharge: No Stand-Alone Forms: My [facility], Smoking Cessation Medications and DC Order Prescriptions: New atorvastatin 40 mg Tablet 40 mg PO QAM Qty: 30 RF: 0 metoprolol tartrate 25 mg Tablet 12.5 mg PO BID Qty: 30 RF: 0 famotidine 20 mg Tablet 20 mg PO QAM Qty: 30 RF: 0 aspirin 325 mg tablet 325 mg PO DAILY Qty: 30 RF: 0 clopidogrel [Plavix] 75 mg tablet 75 mg PO DAILY Qty: 30 RF: 0 Discontinued amlodipine 5 mg tablet 5 mg PO DAILY Qty: 30 RF: 0 Discharge Orders: Discharge Order (Routine); Ordered 12/31/19 Ordered By: Su Cortez Admission Data Admit Date/Time: 12/28/19 23:02 Attending Provider: Amanda Lagos Admit Provider: Mamadou Rowe Primary Care Provider: KIERRA,ROBERTO Other Providers: Onel Woods ; Elizabeth De La Vega Other Interventions: Discharge Summary Assessment (RN) Last Done: 12/31/19 11:13 DC Date/Time DO NOT enter until pt leaves facility: 12/31/19 12:33 Supervising Physician Co-Signing Physician Notes Resident Physician Supervision Note: I independently interviewed and examined the patient and verified the valles history and physical, reviewed labs and image studies, discussed the case with the resident Dr. Cortez and agree with the findings and care plan. Time spent in discharge 35 min Resident Activity Tracking Resident Involvement: Resident Care Provided Care Provided: Adult Hospital Medicine
--- NOTE | 2019-12-31 15:51 | Cardiology Progress Note ---
Date of Service December 31, 2019 Assessment & Plan (1) Acute lateral wall myocardial infarction: She has completed 48 hours of heparin. After discussion with interventionalist, recommend the following: Aspirin 325 mg daily (could increase to twice daily if she has persistent epigastric discomfort). Clopidogrel 75 mg daily. Atorvastatin 40 mg daily. Proton pump inhibitor for gastric protection. Metoprolol 12.5 mg twice daily. Given borderline hypotension, her amlodipine is to be discontinued. For a variety of reasons, determined not to initiate low-dose Xarelto (2.5 mg twice daily). I will see the patient in follow-up on 01/13/20 at noon in the [facility] office. Will arrange for cardiac rehab at that time. (2) Post-infarction pericarditis: Since nonsteroidals are discouraged and the post infarct phase, utilize aspirin as anti-inflammatory. (3) Dizziness: Nonspecific symptoms which do not seem to be hemodynamically mediated. Improving. (4) HTN (hypertension): Normotensive to low BPs on low-dose metoprolol. (5) Abdominal aortic aneurysm: Follow-up with serial ultrasounds and evaluation by vascular surgery. Admission and Anticipated Discharge Date Admission Date: December 28, 2019 Subjective Patient generally feeling better today. She is still notes episodes of vague dizziness, similar to "hot flashes" she has had in the past. These can occur in any position, not orthostatic. She had an episode while I was evaluating her this morning, pulse was strong and regular, no apparent hemodynamic phenomenon at that time (while she was lying in bed). She denies any chest pain and notes only very mild epigastric discomfort. Tolerating food well, no further significant nausea. Overall, she feels well and is ready to return home. Physical Exam Physical Exam: Normal habitus middle-aged white female in no distress. Afebrile. BP low normal, pulse in the 50s and regular, respirations 18. Skin: No ecchymoses or generalized lesions. HEENT: Unremarkable. Neck: No carotid bruits or jugular venous distention. Lungs: Mildly decreased breath sounds but clear. Cardiac: Regular rhythm regular rhythm with normal S1 and S2, 2/6 apical holosystolic murmur which is nonradiating. No rub or gallop. Abdomen: Minimal epigastric tenderness. No guarding or rigidity. Extremities: No edema. Peripheral pulses brisk. Neurologic: Normal affect and conversation, nonfocal. Results & Data ([facility]) Vital Signs (Past 12 Hours) Vital Signs Temp Pulse Pulse Pulse Resp BP Pulse Ox 12/31/19 11:56 97.7 F 53 L 18 131/77 98 12/31/19 11:13 98.2 F 59 L 52 L 18 99/63 L 99 12/31/19 08:00 55 L 12/31/19 07:38 98.2 F 52 L 18 99/63 L 99 PG Care Time/CCT Total # of Minutes Spent Total Time Spent with Patient: Total time spent is greater than 50% in coordination of care (as documented) at patient's floor/unit and/or counseling patient: Coding Level of Care Code 58278 Subseq Hosp Care Lvl 3 Diagnoses Acute lateral wall myocardial infarction I21.29 Post-infarction pericarditis I24.1 Dizziness R42 HTN (hypertension) I10 Abdominal aortic aneurysm I71.4
== END 2019-12-31 12:33 | disposition home or self-care (01) | DRG 281 ==
LOC: ED 20:04 → 2S 23:02 → SUATTDRO 23:02 → 2S 23:51

== ENCOUNTER 2020-01-03 03:35 | Inpatient (IN) ==
[2020-01-03] MEDS ORDERED: ONDANSETRON INJ 2 MG/ML 2 ML VIAL IV STA (03:54)
[2020-01-03] MEDS ORDERED: MoRPHine SULFATE 4 MG/ML 1 ML CARP\\VIAL IV STA ×2 (03:54→05:21)
[2020-01-03] MEDS ORDERED: FAMOTIDINE 20MG/5ML IV PUSH IV STA (03:57)
[2020-01-03] MEDS ORDERED: SODIUM CHLORIDE 0.9% 1000ML 1,000 ML IV SCH ×2 (04:00→18:15)
[2020-01-03 04:15] LABS: Basophils # (auto) 0.04 K/uL (0-0.2); Basophils % (auto) 0.4 %; Eosinophils # (auto) 0.28 K/uL (0-0.5); Eosinophils % (auto) 2.6 %; Hematocrit (blood only) 42.6 % (37-47); Hemoglobin 14.6 g/dL (12.0-16.0); Immature Granulocytes # (auto) 0.03 K/uL (0.00-0.02); Immature Granulocytes % (auto) 0.3 %; Lymphocytes # (auto) 2.97 K/uL (1.2-3.4); Lymphocytes % (auto) 27.5 %; Mean Corpuscular Hemoglobin 32.2 pg (25-34); Mean Corpuscular Hgb Conc 34.3 g/dL (32-36); Mean Platelet Volume 11.4 fL (7.4-10.4); Monocytes # (auto) 0.95 K/uL (0.11-0.59); Monocytes % (auto) 8.8 %; Neutrophils # (auto) 6.53 K/uL (1.4-6.5); Neutrophils % (auto) 60.4 %; Platelet Count 256 K/uL (130-400); RDW Coefficient of Variation 13.4 % (11.5-14.5); RDW Standard Deviation 45.9 fL (36.4-46.3); Red Blood Count 4.53 M/uL (4.2-5.4)
--- NOTE | 2020-01-03 04:23 | Emergency Department Note ---
History of Present Illness General Chief complaint: Chest Pain Stated complaint: CHEST PAIN/SHORTNESS OF BREATH Time Seen by Provider: 01/03/20 03:43 Source: patient Mode of arrival: EMS Limitations: no limitations History of Present Illness Provider complaint: epigastric pain Onset (ago): hour(s) 3 Location: abdomen Radiation: non-radiation Severity: severe Pain Consistency: + constant Maximum Pain Intensity: 5 Current Pain Intensity: 5 Quality: + aching and + constant Relieved By: + none Exacerbated By: + none Associated symptoms: + nausea/vomiting, + shortness of breath and + other (Dizziness) Treatments prior to arrival: aspirin and other (Sublingual nitro and fentanyl by EMS) This is a 64-year-old female with a recent NSTEMI and incidental finding of a AAA who presents with epigastric pain. Patient states she began to not feel well around 9 PM and went to go to bed early. Patient states she was unable to get comfortable, and continued to feel worse. Patient states around 1 AM she had severe epigastric pain, similar to her initial presentation a week ago with her heart attack. Patient states she felt short of breath tonight, with nausea, and dizziness. Patient denies any chest pain. Denies any radiation or movement of the epigastric pain. States the pain is been constant, and she did not try any medications at home prior to EMS arrival. Patient states she has been taking all of her new medications as prescribed. States there was no other change in her diet or activity today. Her is not ill, and he states that he ate the same things. Patient denies any change in bowel or bladder function. No lower extremity edema or calf pain. Patient states the nitroglycerin and fentanyl given to her by EMS did not provide any additional relief. Home Medications Home Medications Medication Instructions Recorded Confirmed Type aspirin 325 mg PO DAILY #30 tab 12/31/19 01/03/20 Rx atorvastatin 40 mg PO QAM #30 tab 12/31/19 01/03/20 Rx clopidogrel [Plavix] 75 mg PO DAILY #30 tab 12/31/19 01/03/20 Rx famotidine 20 mg PO QAM #30 tab 12/31/19 01/03/20 Rx metoprolol tartrate 12.5 mg PO BID #30 tab 12/31/19 01/03/20 Rx Allergies Allergy/AdvReac Type Severity Reaction Status Date / Time No Known Allergies Allergy Mild Verified 01/03/20 04:06 Past Med/Surg History Medical History (Updated 01/03/20 @ 07:36 by Magali Williamson DO) CAD (coronary artery disease) COPD (chronic obstructive pulmonary disease) HTN (hypertension) Hyperlipidemia LDL goal <70 Non-ST elevation myocardial infarction (NSTEMI) (Acute) Surgical History H/O: hysterectomy Family History Father Alcohol abuse Hepatic cirrhosis Mother Alzheimer disease Hepatic cirrhosis Social History Preferred Language: Kazakh Communication Ability: Effective Tearoom Host Required: No Beliefs That Will Affect Care: None marital status: Current Living Situation: Spouse Other Information That Helps Us Care for You: Yes (has a support dog) Feels Safe at Home: Yes Safety Concerns: Feels Safe At This Time Smoking Status: Current every day smoker Tobacco Type: cigarettes ; Cigarettes Per Day: 5 ; Do You Dip or Chew Tobacco: No ; Second Hand Exposure: No ; Tobacco Cessation Education Requested by Patient: No Hx Alcohol Use: Yes Hx Substance Use: No Dental Care, Regularly: Yes Review of Systems See HPI for pertinent positives & negatives. and A total of 10 systems reviewed and were otherwise negative Physical Exam Vital Signs Vital Signs - 24 hr 01/03/20 03:49 01/03/20 03:56 01/03/20 04:09 Temperature 36.6 C Temperature Source Oral Pulse Rate 72 Pulse Rate [Bilateral Apical] 66 Respiratory Rate 22 18 Respiratory Effort / Characteristics Non-Labored Spontaneous Non-Labored Respiratory Depth Normal Blood Pressure 161/87 H Blood Pressure [Right Arm] 151/85 H Blood Pressure Mean 111 Blood Pressure Mean [Right Arm] 107 Blood Pressure Position Lying Blood Pressure Position [Right Arm] Lying Pulse Oximetry 100 100 100 Oxygen Delivery Method Room Air Room Air Room Air Sepsis Recent Fever Within 48 Hours No Sepsis Action Taken by Nursing No Action Required 01/03/20 04:33 01/03/20 05:10 01/03/20 05:34 Temperature Temperature Source Pulse Rate Pulse Rate [Bilateral Apical] 68 62 67 Respiratory Rate 18 18 20 Respiratory Effort / Characteristics Respiratory Depth Blood Pressure Blood Pressure [Right Arm] 150/88 H 138/85 136/81 Blood Pressure Mean Blood Pressure Mean [Right Arm] 108 102 99 Blood Pressure Position Blood Pressure Position [Right Arm] Pulse Oximetry 100 99 97 Oxygen Delivery Method Room Air Room Air Room Air Sepsis Recent Fever Within 48 Hours Sepsis Action Taken by Nursing 01/03/20 05:58 01/03/20 06:30 Temperature Temperature Source Pulse Rate Pulse Rate [Bilateral Apical] 61 67 Respiratory Rate 20 20 Respiratory Effort / Characteristics Respiratory Depth Blood Pressure Blood Pressure [Right Arm] 127/79 119/81 Blood Pressure Mean Blood Pressure Mean [Right Arm] 95 93 Blood Pressure Position Blood Pressure Position [Right Arm] Pulse Oximetry 100 100 Oxygen Delivery Method Room Air Room Air Sepsis Recent Fever Within 48 Hours Sepsis Action Taken by Nursing GENERAL: alert, uncomfortable appearing, well nourished, moderate distress, non- toxic EYE EXAM: normal conjunctiva, PERRL and EOM's grossly intact OROPHARYNX: no exudate, no erythema, lips, buccal mucosa, and tongue normal and mucous membranes are moist NECK: supple, no nuchal rigidity, no adenopathy, non-tender LUNGS: Clear to auscultation. Normal chest wall mechanics, no w/r/r HEART: no murmurs, S1 normal and S2 normal ABDOMEN: abdomen soft, epigastric tenderness to palpation, normo-active bowel sounds, no masses, no rebound or guarding. BACK: Back is symmetrical on inspection and there is no deformity, no midline tenderness, no CVA tenderness. SKIN: no rashes and no bruising, no petechiae UPPER EXTREMITIES: upper extremities are grossly normal. FROM, nml pulses b/l. LOWER EXTREMITIES: No pitting edema. FROM, nml pulses b/l. No calf tenderness. NEURO EXAM: Normal sensorium, cranial nerves II-XII grossly intact, normal speech, no gross weakness of arms, no gross weakness of legs. Gross sensation intact. Course Course 0550: Discussed with Dr. Pena, [facility] hospitalist. 06: Case discussed with Dr. Pedro, interventional cardiology. Feels patient can remain here for additional cardiology evaluation and possible repeat catheterization and does not need transfer to a tertiary care facility at this time. Agrees with plan for heparin drip and additional pain control. Administered Medications Sodium Chloride (Nss 1000ml) 1,000 mls @ 125 mls/hr IV .Q8H GENNA Stop: 02/02/20 03:59 Last Admin: 01/03/20 04:08 Dose: 125 mls/hr Documented by: [id number] Heparin Sodium/Dextrose (Heparin Sodium/Dextrose) 25,000 units in 500 mls @ 15 mls/hr IV .Q24H GENNA; Protocol Stop: 02/02/20 05:59 Last Admin: 01/03/20 06:25 Dose: 750 units/hr, 15 mls/hr Documented by: [id number] Cosigned by: [id number] Ioversol (Optiray 320 125ml) 125 ml IV ONCE PRN PRN Reason: Interaction Checking Stop: 01/07/20 04:32 Last Admin: 01/03/20 04:33 Dose: 118 ml Documented by: [id number] Discontinued Medications Famotidine (Pepcid 20mg Iv Push) 20 mg IV ONE STA Stop: 01/03/20 03:58 Last Admin: 01/03/20 04:09 Dose: 20 mg Documented by: [id number] Heparin Sodium/Dextrose () 1 ea IV ONE ONE; Protocol Stop: 01/03/20 05:51 Last Admin: 01/03/20 06:31 Dose: Not Given Documented by: [id number] Morphine Sulfate (Morphine Sulfate) 4 mg IV NOW STA Stop: 01/03/20 03:55 Last Admin: 01/03/20 04:09 Dose: 4 mg Documented by: [id number] Morphine Sulfate (Morphine Sulfate) 4 mg IV NOW STA Stop: 01/03/20 05:22 Last Admin: 01/03/20 05:32 Dose: 4 mg Documented by: [id number] Nitroglycerin (Nitro-Bid 2%) 1 inch EXT Q6H STA Stop: 01/03/20 05:22 Last Admin: 01/03/20 05:32 Dose: 1 inch Documented by: [id number] Ondansetron HCl (Zofran) 4 mg IV NOW STA Stop: 01/03/20 03:55 Last Admin: 01/03/20 04:09 Dose: 4 mg Documented by: [id number] Critical Care Time Critical Care Time: Yes Total Critical Care Time: 42 Critical care of 42 min performed to assess and manage high likelihood of life- threatening unstable angina, involving labs and imaging performed with assessment to evaluation of unstable angina diagnosis with frequent r eassessment. This time includes bedside time, treatment discussions with patient/family/consultants, documentation time and excludes procedure time. Medical Decision Making Differential Diagnosis Differential diagnoses includes but is not limited to acute coronary syndrome, myocardial infarction, pericarditis, pulmonary embolus, aortic dissection, pneumonia, pneumothorax, musculoskeletal, shingles, esophageal, gastritis, peptic ulcer disease, GERD, gallbladder disease, pancreatitis, small bowel obstruction, acute coronary syndrome, pericarditis, ischemic bowel, irritable bowel disease, irritable bowel syndrome, appendicitis, diverticulitis, malignancy, hernia, urinary tract infection, perforation, trauma, infectious. Medical Records Attestation: I reviewed the patient's medical records. Home Medications Current Medication List: was personally reviewed by me Laboratory Data Attestation: I reviewed the patient's lab results. Result diagrams: 01/03/20 03:01/03/20 03: Lab Results 01/03/20 01/03/20 Range/Units 03:20 03:20 WBC 10.80 (4.8-10.8) K/uL RBC 4.53 (4.2-5.4) M/uL Hgb 14.6 (12.0-16.0) g/dL Hct 42.6 (37-47) % MCV 94.0 (80-100) fL MCH 32.2 (25-34) pg MCHC 34.3 (32-36) g/dL RDW Std Deviation 45.9 (36.4-46.3) fL RDW Coeff of Ganga 13.4 (11.5-14.5) % Plt Count 256 (130-400) K/uL MPV 11.4 H (7.4-10.4) fL Immature Gran % (Auto) 0.3 % Neut % (Auto) 60.4 % Lymph % (Auto) 27.5 % [place] % (Auto) 8.8 % Eos % (Auto) 2.6 % Baso % (Auto) 0.4 % Immature Gran # (Auto) 0.03 H (0.00-0.02) K/uL Neut # (Auto) 6.53 H (1.4-6.5) K/uL Lymph # (Auto) 2.97 (1.2-3.4) K/uL [place] # (Auto) 0.95 H (0.11-0.59) K/uL Eos # (Auto) 0.28 (0-0.5) K/uL Baso # (Auto) 0.04 (0-0.2) K/uL Sodium 140 (136-145) mmol/L Potassium 4.0 (3.5-5.1) mmol/L Chloride 111 H (98-107) mmol/L Carbon Dioxide 23 (21-32) mmol/L Anion Gap 6.0 (3-11) BUN 15 (7-18) mg/dl Creatinine 0.70 (0.6-1.2) mg/dl Est Cr Clr Drug Dosing 77.0 ml/min Est GFR ( Amer) 106.9 Est GFR (Non-Af Amer) 92.2 BUN/Creatinine Ratio 21.9 H (10-20) Glucose 98 (70-99) mg/dl Calcium 9.4 (8.5-10.1) mg/dl Magnesium 2.0 (1.8-2.4) mg/dl Total Bilirubin 0.3 (0.2-1) mg/dl AST 45 H (15-37) U/L ALT 56 (12-78) U/L Alkaline Phosphatase 95 (45-117) U/L Troponin I 2.290 H* (0-0.045) ng/ml NT-Pro-B Natriuret Pep 2236 H (0-900) pg/ml Total Protein 7.6 (6.4-8.2) gm/dl Albumin 3.2 L (3.4-5.0) gm/dl Globulin 4.4 H (2.5-4.0) gm/dl Albumin/Globulin Ratio 0.7 L (0.9-2) Lipase 283 (73-393) U/L Imaging Data Radiologist's Impression: CTA chest: No pulmonary embolism. Normal caliber of the aorta without acute aortic syndrome. No acute process within the lungs. Coronary artery calcifications. Heart size is normal. CTA abdomen and pelvis with and without contrast: Infrarenal abdominal aortic aneurysm measuring up to 4.3 cm which is unchanged from 12/29/2019. The JEAN appears chronically thrombosed. The remainder of the branch vessels are patent. No acute abnormality in the liver, gallbladder, pancreas, spleen, adrenal glands, and kidneys. Status post hysterectomy. Sigmoid diverticulosis without diverticulitis. Radiologist: Ad Bravo MD. CTA chest with/without: No pulmonary embolism. Normal caliber of the aorta without acute aortic synd alba. No acute process within the lungs. Coronary artery calcifications. Heart size is normal. Radiologist: Ad Bravo MD. ECG Data Attestation: I personally reviewed and interpreted this ECG as follows: Indication: + chest pain Rate (beats per minute): 70 Rhythm: + normal sinus ECG Hudson: + Normal ECG ST segments: + ST depression (V3-V6) and + ST elevation (V2 - 1mm, no other ST elevation in concordant leads) Comparison ECG Date: from (12/30/2019-ST depression noted on old, T wave inversions noted in lead I, aVL in addition) Additional Comments: Repeat EKG showed a sinus bradycardia at 59, normal axis, normal intervals, no ectopy, ST depression previously seen is now improved. T wave inversion noted in aVL similar to prior, flattening in lead I. Prior appearance of possible evolving ST elevation in V2 no longer seen. Blood Pressure Blood Pressure Findings: Elevated blood pressure Blood Pressure Disposition: further management by hospitalist MDM Narrative Patient presenting uncomfortable appearing with epigastric pain that is similar to her recent presentation and subsequent admission for a NSTEMI. Patient also with recently found incidental AAA. Because of recurrent pain, patient sent for CT angiography of the chest/abdomen/pelvis to rule out ruptured AAA, dissection, and additional pathology. This was reassuring. Additional labs reassuring. Troponin was elevated, however is decreased compared to prior and I suspect is trending down from recent end STEMI and catheterization. On review of cardiology notes, concern for known blockages and inability to traverse a lesion that was noted during catheterization as well as mention in another note of post OK myocarditis. Patient states she has not been taking NSAIDs or colchicine at home. Patient states pain was improved with morphine and Nitropaste. Patient otherwise remained hemodynamically stable. Case discussed with Dr. Pedro of cardiology as a precaution and he did not feel patient needed transfer to a tertiary care facility at this time. Case discussed with hospitalist for additional evaluation and management. Patient was started on heparin drip while in the emergency room. Impression & Plan Chest pain, Unstable angina, Epigastric pain, Abdominal aortic aneurysm, Tobacco use Discharge Plan Visit Data Chief Complaint: Chest Pain Stated Complaint: CHEST PAIN/SHORTNESS OF BREATH Other Complaint: Shortness of Breath/Dyspnea ED Provider: Magali Williamson Discharge Problem: Chest pain, Unstable angina, Epigastric pain, Abdominal aortic aneurysm, Tobacco use Patient Disposition: Being Evaluated by Hospitalist Condition: Good Forms Stand Alone Forms: My [facility], Important Visit Information Prescriptions Prescriptions: No Action atorvastatin 40 mg Tablet 40 mg PO QAM Qty: 30 RF: 0 metoprolol tartrate 25 mg Tablet 12.5 mg PO BID Qty: 30 RF: 0 famotidine 20 mg Tablet 20 mg PO QAM Qty: 30 RF: 0 aspirin 325 mg tablet 325 mg PO DAILY Qty: 30 RF: 0 clopidogrel [Plavix] 75 mg tablet 75 mg PO DAILY Qty: 30 RF: 0 Referrals Referrals: PCP,NO [Primary Care Provider] - Discharge Problem: Chest pain Qualifiers: Chest pain type: unspecified Qualified Code(s): R07.9 - Chest pain, unspecified Abdominal aortic aneurysm Qualifiers: Presence of rupture: without rupture Qualified Code(s): I71.4 - Abdominal aortic aneurysm, without rupture
[2020-01-03 04:33] LABS: Albumin Level 3.2 gm/dl (3.4-5.0); BUN Creatinine Ratio 21.9 (10-20); Calcium 9.4 mg/dl (8.5-10.1); Est GFR (African American) 106.9; Est GFR (Non-African American) 92.2
[2020-01-03] MEDS ORDERED: OPTIRAY 320 125ml IV PRN (04:33)
[2020-01-03 04:47] LABS: Albumin Globulin Ratio 0.7 (0.9-2); Bilirubin,Total 0.3 mg/dl (0.2-1); Globulin 4.4 gm/dl (2.5-4.0); Total Protein 7.6 gm/dl (6.4-8.2); Troponin I 2.29 ng/ml (0-0.045)
[2020-01-03] MEDS ORDERED: NITROGLYCERIN 2% OINTMENT 30GM TUBE EXT STA (05:21)
[2020-01-03] MEDS ORDERED: Heparin IV Low Dose *NO* Bolus IV ONE (05:50)
[2020-01-03] MEDS ORDERED: HEPARIN SODIUM/DEXTROSE 25,000 UNITS/500 ML BAG IV SCH (06:00)
--- NOTE | 2020-01-03 06:38 | History & Physical Report ---
Date of Service January 03, 2020 Assessment & Plan (1) Unstable angina: Unstable angina/CAD/multiple LAD stenoses on cardiac catheterization of 12-29-19, recent non-STEMI/hypertension- Continue aspirin 325 mg p.o. daily, clopidogrel 75 mg p.o. daily and metoprolol tartrate 12.5 mg p.o. twice daily. Begin heparin infusion, standard concentration with bolus per protocol. Her case was discussed by Dr. Williamson with Dr. Pedro. Present on Admission?: Yes (2) CAD (coronary artery disease): See above Present on Admission?: Yes (3) HTN (hypertension): See above Present on Admission?: Yes (4) Non-ST elevation myocardial infarction (NSTEMI): (5) Post-infarction pericarditis: See above Present on Admission?: Yes (6) Abdominal aortic aneurysm: Infrarenal AAA, stable at 4.3 cm compared to the most recent CT Present on Admission?: Yes (7) COPD (chronic obstructive pulmonary disease): COPD- No acute need for inhalers at this time. Present on Admission?: Yes (8) Tobacco use: Cessation counseling Present on Admission?: Yes (9) Hyperlipidemia LDL goal <70: Continue atorvastatin 40 mg daily Present on Admission?: Yes History of Present Illness Chief Complaint: Patient presents to the emergency department with complaint of epigastric to substernal chest discomfort that began earlier this evening prior to arrival, reminiscent of the discomfort that she had with her NSTEMI last wee k. Primary Care Provider: NO PCP The patient is a 64-year-old female with a past medical history including CAD, hypertension, non-STEMI, postinfarction pericarditis, tobacco use, abdominal aortic aneurysm, and COPD. She underwent cardiac catheterization on 12/29/[address] Bj Joseph, which was significant for LAD stenoses of 50 to 60% early mid, a D1 medium caliber with ostial 70% and S1 with 90% ostial stenosis. Decision was made to undergo medical management, as wire was unable to be passed to attempt to stent. The patient had been doing well since discharge on 12/30, until this evening. Allergies Allergy/AdvReac Type Severity Reaction Status Date / Time No Known Allergies Allergy Mild Verified 01/03/20 04:06 Home Medications Home Medications Medication Instructions Recorded Confirmed Type aspirin 325 mg PO DAILY #30 tab 12/31/19 01/03/20 Rx atorvastatin 40 mg PO QAM #30 tab 12/31/19 01/03/20 Rx clopidogrel [Plavix] 75 mg PO DAILY #30 tab 12/31/19 01/03/20 Rx famotidine 20 mg PO QAM #30 tab 12/31/19 01/03/20 Rx metoprolol tartrate 12.5 mg PO BID #30 tab 12/31/19 01/03/20 Rx Past Med/Surg History Surgical History H/O: hysterectomy Family History Father Alcohol abuse Hepatic cirrhosis Mother Alzheimer disease Hepatic cirrhosis Social History Preferred Language: Austrian Communication Ability: Effective Media Relations Director Required: No Beliefs That Will Affect Care: None marital status: Current Living Situation: Spouse Feels Safe at Home: Yes Smoking Status: Former smoker Tobacco Type: cigarettes ; Cigarettes Per Day: 5 ; Hx Alcohol Use: Yes Hx Substance Use: No Dental Care, Regularly: Yes Review of Systems Review of Systems: The patient denies palpitations, cough, lower extremity swelling, sore throat, fevers, chills, sweats, weight change, fatigue, nausea, vomiting, diarrhea , constipation, pelvic pain, blood in urine or stool, dysuria, urinary frequency or urgency, lightheadedness, dizziness, headache, memory loss, loss of consciousness, rash, abnormal bruising or bleeding, imbalance, focal or generalized weakness, numbness or tingling in arms or legs, generalized arthralgias or myalgias, back or neck pain, or night sweats. The review of systems is otherwise negative other than for that already noted above, and at least 10 systems have been reviewed. Physical Exam Physical Exam: The patient is awake, alert and oriented 3, well developed and well nourished, normocephalic and atraumatic, lying in bed and in no acute distress. HEENT--PERRL, EOMI, mucous membranes and oropharynx normal. Neck--supple. No JVD. No bruits. Thyroid normal, trachea midline, no adenopathy. Heart--normal S1 and S2. No murmurs, rubs or gallops. Lungs--clear bilaterally, no respiratory distress, no accessory muscle use. Abdomen--normal bowel sounds and soft. Nontender. Nondistended. Extremities--no cyanosis or clubbing. No edema. Dermatologic--normal skin turgor, normal color, no abnormal lymph nodes, no rash. Neurologic--cranial nerves II through XII grossly intact. Rheumatologic--normal range of motion. Psychiatric--normal affect. Results & Data Vital Signs (Past 12 Hours) Vital Signs Temp Pulse Pulse Resp BP BP Pulse Ox 01/03/20 05:58 61 20 127/79 100 01/03/20 05:34 67 20 136/81 97 01/03/20 05:10 62 18 138/85 99 01/03/20 04:33 68 18 150/88 H 100 01/03/20 04:09 66 18 151/85 H 100 01/03/20 03:56 100 01/03/20 03:49 97.9 F 72 22 161/87 H 100 Laboratory Results Laboratory Results WBC 10.80 K/uL (4.8-10.8) 01/03/20 03:20 RBC 4.53 M/uL (4.2-5.4) 01/03/20 03:20 Hgb 14.6 g/dL (12.0-16.0) 01/03/20 03:20 Hct 42.6 % (37-47) 01/03/20 03:20 MCV 94.0 fL (80-100) 01/03/20 03:20 MCH 32.2 pg (25-34) 01/03/20 03:20 MCHC 34.3 g/dL (32-36) 01/03/20 03:20 RDW Std Deviation 45.9 fL (36.4-46.3) 01/03/20 03:20 RDW Coeff of [place]anga 13.4 % (11.5-14.5) 01/03/20 03:20 Plt Count 256 K/uL (130-400) 01/03/20 03:20 MPV 11.4 fL (7.4-10.4) H 01/03/20 03:20 Immature Gran % (Auto) 0.3 % 01/03/20 03:20 Neut % (Auto) 60.4 % 01/03/20 03:20 Lymph % (Auto) 27.5 % 01/03/20 03:20 [place] % (Auto) 8.8 % 01/03/20 03:20 Eos % (Auto) 2.6 % 01/03/20 03:20 Baso % (Auto) 0.4 % 01/03/20 03:20 Immature Gran # (Auto) 0.03 K/uL (0.00-0.02) H 01/03/20 03:20 Neut # (Auto) 6.53 K/uL (1.4-6.5) H 01/03/20 03:20 Lymph # (Auto) 2.97 K/uL (1.2-3.4) 01/03/20 03:20 [place] # (Auto) 0.95 K/uL (0.11-0.59) H 01/03/20 03:20 Eos # (Auto) 0.28 K/uL (0-0.5) 01/03/20 03:20 Baso # (Auto) 0.04 K/uL (0-0.2) 01/03/20 03:20 Sodium 140 mmol/L (136-145) 01/03/20 03:20 Potassium 4.0 mmol/L (3.5-5.1) 01/03/20 03:20 Chloride 111 mmol/L (98-107) H 01/03/20 03:20 Carbon Dioxide 23 mmol/L (21-32) 01/03/20 03:20 Anion Gap 6.0 (3-11) 01/03/20 03:20 BUN 15 mg/dl (7-18) 01/03/20 03:20 Creatinine 0.70 mg/dl (0.6-1.2) 01/03/20 03:20 Est Cr Clr Drug Dosing 77.0 ml/min 01/03/20 03:20 Est GFR ( Amer) 106.9 01/03/20 03:20 Est GFR (Non-Af Amer) 92.2 01/03/20 03:20 BUN/Creatinine Ratio 21.9 (10-20) H 01/03/20 03:20 Glucose 98 mg/dl (70-99) 01/03/20 03:20 Calcium 9.4 mg/dl (8.5-10.1) 01/03/20 03:20 Magnesium 2.0 mg/dl (1.8-2.4) 01/03/20 03:20 Total Bilirubin 0.3 mg/dl (0.2-1) 01/03/20 03:20 AST 45 U/L (15-37) H 01/03/20 03:20 ALT 56 U/L (12-78) 01/03/20 03:20 Alkaline Phosphatase 95 U/L (45-117) 01/03/20 03:20 Troponin I 2.290 ng/ml (0-0.045) H* 01/03/20 03:20 NT-Pro-B Natriuret Pep 2236 pg/ml (0-900) H 01/03/20 03:20 Total Protein 7.6 gm/dl (6.4-8.2) 01/03/20 03:20 Albumin 3.2 gm/dl (3.4-5.0) L 01/03/20 03:20 Globulin 4.4 gm/dl (2.5-4.0) H 01/03/20 03:20 Albumin/Globulin Ratio 0.7 (0.9-2) L 01/03/20 03:20 Lipase 283 U/L (73-393) 01/03/20 03:20 Code Status & VTE Plan Code Status Full code VTE Prophylaxis Plan VTE Prophylaxis will be ordered: Yes PG Care Time/CCT Total # of Minutes Spent Total Time Spent with Patient: Total time spent is greater than 50% in coordination of care (as documented) at patient's floor/unit and/or counseling patient: Coding Level of Care Code 22633 Initial Inpt Care Lvl 3 Diagnoses Unstable angina I20.0 CAD (coronary artery disease) I25.10 HTN (hypertension) I10 Non-ST elevation myocardial infarction (NSTEMI) I21.4 Post-infarction pericarditis I24.1 Abdominal aortic aneurysm I71.4 COPD (chronic obstructive pulmonary disease) J44.9 Tobacco use Z72.0 Hyperlipidemia LDL goal <70 E78.5
--- NOTE | 2020-01-03 06:42 | CT Scan Report ---
CT ANGIOGRAPHY OF THE CHEST DISSECTION PROTOCOL CLINICAL HISTORY: epigastric pain/AAA, recent NSTEMI/cath COMPARISON STUDY: Chest CT December 28, 2019. Chest radiograph December 30, 2019. TECHNIQUE: Before and following the IV administration of 118 mL of Optiray-320, helical axial images of the chest were obtained. Maximal intensity projections and sagittal and coronal reformats were vi ewed on an independent 3D workstation. IV contrast was administered without complication. Automated exposure control was utilized for the study. A dose lowering technique was utilized adhering to the principles of ALARA. FINDINGS: The caliber of the thoracic aorta is normal. There is no thoracic aortic dissection. There is mild plaque within the aortic arch. No pericardial effusion is noted. There are no pulmonary embo li. Central airways are patent. Mild paraseptal emphysema is present. There is no consolidation to cochran ggest pneumonia. No pneumothorax or pleural effusion is noted. No acute fracture within the thoracic spine or ribs is identified. The CTA of the abdomen and pelvis will be reported separately. There is moderate coronary artery calcification. IMPRESSION: 1. No thoracic aortic dissection. 2. No acute findings within the chest. 3. Mild emphysema. ACT 112: Negative or not required by law. Electronically signed by: Pedro Pablo Hudson M.D. 01/03/2020 6:41 AM
--- NOTE | 2020-01-03 07:00 | CT Scan Report ---
CT angio abd pelvis wo/w con CLINICAL HISTORY: epigastric pain/AAA, recent NSTEMI/cath COMPARISON STUDY: CT of the abdomen December 29, 2019. CT of the abdomen and pelvis December 28, 2019. TECHNIQUE: Unenhanced and arterial phase imaging of the abdomen and pelvis was performed. Intravenous injection of 118 cc of Optiray 320 IV was uneventful. Sagittal and coronal reconstructions were view ed as well as maximal intensity projections on an independent 3-D workstation. Automated exposure con trol was utilized for the study. A dose lowering technique was utilized adhering to the principles o f ALARA. FINDINGS: Please note that the chest CT will be reported separately. No pneumatosis, free air or port al venous gas is present. Arterial phase images of the liver, spleen, adrenal glands and pancreas are normal. Note is made of a 3.5 cm left renal cyst. There is no hydronephrosis. There is no biliary or pancreatic ductal dilatation. There is colonic diverticulosis without evidence for acute diverticuli tis. A 4.2 cm infrarenal abdominal aortic aneurysm is unchanged and CT of December 29, 2019. There is no evidence for rupture. This contains mural thrombus. No dissection is noted within the abdominal aort a. Extensive atherosclerotic plaque is present. No groin pseudoaneurysm is identified. No suspicious osseous lesion. IMPRESSION: 1. No acute process within the abdomen or pelvis. 2. No change in a 4.2 cm infrarenal abdominal aortic aneurysm since CT of December 29, 2019. No rupture. No dissection. ACT 112: Negative or not required by law. Electronically signed by: Pedro Pablo Hudson M.D. 01/03/2020 6:59 AM
[2020-01-03] MEDS ORDERED: ALUMINUM/MAGNESIUM SUSP 30 ML UDC PO PRN (08:47)
[2020-01-03] MEDS ORDERED: MAGNESIUM HYDROXIDE SUSP 30 ML UDC PO PRN (08:47)
[2020-01-03] MEDS ORDERED: NITROGLYCERIN SL 0.4 MG/TAB TAB SL PRN (08:47)
[2020-01-03] MEDS ORDERED: ASPIRIN 325 MG ECTAB PO SCH (09:00)
[2020-01-03] MEDS ORDERED: NSS + 20MEQ KCL 20 MEQ/1,000 ML BAG IV SCH (09:30)
[2020-01-03] MEDS: FAMOTIDINE 20 MG TAB PO SCH ×2 (10:24→20:55)
[2020-01-03] MEDS: CLOPIDOGREL BISULFATE 75 MG TAB PO SCH (10:25)
[2020-01-03] MEDS: ATORVASTATIN 40 MG TAB PO SCH (10:25)
[2020-01-03] MEDS: METOPROLOL TARTRATE 25 MG TAB PO SCH ×2 (10:27→20:55)
[2020-01-03] MEDS: MoRPHine SULFATE 2 MG/ML CARP IV PRN (10:51)
[2020-01-03] MEDS: ONDANSETRON INJ 2 MG/ML 2 ML VIAL IV PRN (10:51)
[2020-01-03] MEDS ORDERED: ALUMINUM/MAGNESIUM SUSP 18 ML, LIDOCAINE HCL VISCOUS 2% 6 ML, BARCODE IDENTIFIER 1 EA PO ONE (11:22)
--- NOTE | 2020-01-03 12:27 | Cardiology Consultation ---
Date of Consultation January 03, 2020 Assessment & Plan (1) Unstable angina: (2) CAD (coronary artery disease): (3) HTN (hypertension): (4) Epigastric pain: (5) Hyperlipidemia LDL goal <70: ASSESSMENT/PLAN: 1. Unstable angina: Her chest tightness is concerning for angina given her docu mented CAD. It occurred with her initial ME last week and was intermittent again last night at rest. Consider cardiac catheterization to further investigate her LAD and defer management of the ramus to interventional Cardiology if felt that it can be intervened upon. She is on heparin drip as per primary service. She is on aspirin. 2. Epigastric pain: This symptom has been present intermittently for a few months and has been constant for over a week with tenderness in the epigastric area. This appears to be less likely cardiac in nature at this time given the fact that her symptoms have been present since her ME in her troponins continue to trend downward. Consider adjusting her gastric regimen with consideration of further investigation in the future after recovered from ME. 3. CAD: Noted to have acute ramus occlusion last week with some degree of left to left collaterals but also at least moderate LAD disease. Continue anti- platelet therapy in the form of aspirin and Plavix. Continue high-intensity statin therapy and beta-kaelyn. Cardiac catheterization as above. Risks and benefits were discussed with her in detail. She was made aware that CT surgery is not available this facility. Images reviewed with Dr. Pedro of interventional Cardiology who plans on pursuing FFR verses intervention. 4. Hypertension: Blood pressure adequately controlled. Continue current regimen. 5. Dyslipidemia: Continue high-intensity statin therapy. 6. Disposition: Cardiology will continue to follow along. Plan of care discussed with Dr. Calderon of the primary hospitalist service. Highly complex medical issues. Thank you for allowing me to participate in the care of your patient. Please call for any other questions or concerns. Sincerely, Alo Carlton M.D. History of Present Illness Reason for Consultation: Unstable angina Requesting Physician: Dr. Olea Attending Physician: Ray Calderon, DO History of Present Illness Mrs. Russo is a pleasant 64-year-old female with a history significant for CAD status post NSTEMI on 12/28/2019 treated medically, hypertension, AAA, COPD, and tobacco abuse. Her primary facilities supervisor is Dr. Woods, who she met last week during hospitalization. She was hospitalized on 12/28/2019 and underwent cardiac catheterization on 12/29/2019 for NSTEMI with peak troponin of 53.8. She was found to have an occluded ramus with faint left to left collaterals. According to cardiac cath report, a wire was unable to be advanced across the lesion. She also had mid LAD CAD which was felt to be moderate. She was treated medically and there was also concern for post ME pericarditis. She presented again early this morning with recurrent symptoms although she states that the symptoms were actually more intense than last week. After lengthy discussion, her most significant pain is epigastric pain. It actually began months ago and was more intermittent initially but could last an entire day before resolving. There was no specific trigger as this pain would persist both at rest and with exertion. She did not identify any specific food that would exacerbate her symptoms. She had not been experiencing chest tightness until 12/28/2019. While laying in bed, she had worsening epigastric pain on 12/28/2019 with central chest tightness, shortness of breath, diaphoresis, and nausea. She came to the emergency department was found to have elevated troponin and underwent cardiac catheterization as noted. The chest tightness resolved during her hospital stay but the epigastric pain continued throughout the hospital stay. There was improvement in the epigastric pain, but it continued at discharge and continued daily since then. Her best day was 2 days ago when she was actually able to go outside. Then last night at approximately 9 PM while laying in bed, she had an acute worsening of her symptoms, describing them as being more intense than her ME last week. She once again experienced chest tightness but no nausea or diaphoresis. She was short of breath and dizzy however. The chest tightness was intermittent and she believes it resolved in the ambulance ride to the hospital. The epigastric pain however continues to be constant but with improvement in intensity. Her symptoms are non-positional and nonpleuritic. She does admit however that if she lifts her arms above her head, her epigastric pain improved somewhat, but does not resolve. She denies syncope, palpitations, edema, diarrhea, vomiting, melena, hematochezia, hematuria, or other bleeding. She denies fevers. In the emergency department, her troponin was noted to be elevated but when repeating it, it continues to trend down from last week. An echocardiogram done on 12/29/2019 described an EF of 50 to 55% with hypokinesis of the mid to distal lateral and anterolateral hilliard, with mild hypokinesis of the distal anterior wall. There was mild MR also reported. Review of systems: As above. Review of systems otherwise negative/unremarkable. She is currently chest pain-free. Family history: No known premature CAD. Father had cirrhosis and alcohol ab use. Mother had Alzheimer's. Social history: She had smoked since the age of 18 up to 1 pack per day. She has not smoked since last week with her ME. Occasional alcohol. Occasional marijuana. No IV drugs. She lives at home with her , and. She has 1 son. She has a 5-year-old grandson in a infant granddaughter. Her was present at the bedside. Allergies Allergy/AdvReac Type Severity Reaction Status Date / Time No Known Allergies Allergy Mild Verified 01/03/20 04:06 Home Medications Home Medications Medication Instructions Recorded Confirmed Type aspirin 325 mg PO DAILY #30 tab 12/31/19 01/03/20 Rx atorvastatin 40 mg PO QAM #30 tab 12/31/19 01/03/20 Rx clopidogrel [Plavix] 75 mg PO DAILY #30 tab 12/31/19 01/03/20 Rx famotidine 20 mg PO QAM #30 tab 12/31/19 01/03/20 Rx metoprolol tartrate 12.5 mg PO BID #30 tab 12/31/19 01/03/20 Rx Patient History Medical History CAD (coronary artery disease) COPD (chronic obstructive pulmonary disease) HTN (hypertension) Hyperlipidemia LDL goal <70 Non-ST elevation myocardial infarction (NSTEMI) (Acute) Surgical History H/O: hysterectomy Family History Father Alcohol abuse Hepatic cirrhosis Mother Alzheimer disease Social History Preferred Language: Slovak Communication Ability: Effective 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 Alert and oriented. HEENT: Anicteric sclera. Neck: No JVD. No bruits. Normal carotid upstrokes bilaterally. Cardiac: PMI was nondisplaced. No ventricular heave. Regular rate and rhythm. Normal S1-S2. No murmurs, rubs, or gallops. Pulmonary: Clear to auscultation bilaterally without wheezes, rales, or rhonchi. Abdomen: Soft, nondistended, with normoactive bowel sounds. No bruits noted. Epigastric tenderness noted, reproducing her epigastric pain as described in HPI. Extremities: 2+ radial pulses bilaterally. 2+ posterior tibialis pulses bilaterally. No edema or cyanosis. Psychiatric: Affect appears appropriate. Chest: Nontender to palpation. Results & Data ([facility]) Vital Signs (Past 12 Hours) Vital Signs Temp Pulse Pulse Resp BP BP Pulse Ox 01/03/20 11:34 36.4 C L 61 24 105/69 94 01/03/20 10:57 64 119/74 01/03/20 09:30 65 70 123/77 01/03/20 08:06 68 16 117/74 98 01/03/20 06:30 67 20 119/81 100 01/03/20 05:58 61 20 127/79 100 01/03/20 05:34 67 20 136/81 97 01/03/20 05:10 62 18 138/85 99 01/03/20 04:33 68 18 150/88 H 100 01/03/20 04:09 66 18 151/85 H 100 01/03/20 03:56 100 01/03/20 03:49 36.6 C 72 22 161/87 H 100 Laboratory Results Laboratory Results - last 24 hr 01/03/20 01/03/20 01/03/20 03:20 03:20 09:05 WBC 10.80 RBC 4.53 Hgb 14.6 Hct 42.6 MCV 94.0 MCH 32.2 MCHC 34.3 RDW Std Deviation 45.9 RDW Coeff of [place] 13.4 Plt Count 256 MPV 11.4 H Immature Gran % (Auto) 0.3 Neut % (Auto) 60.4 Lymph % (Auto) 27.5 [place] % (Auto) 8.8 Eos % (Auto) 2.6 Baso % (Auto) 0.4 Immature Gran # (Auto) 0.03 H Neut # (Auto) 6.53 H Lymph # (Auto) 2.97 [place] # (Auto) 0.95 H Eos # (Auto) 0.28 Baso # (Auto) 0.04 APTT PTT Ratio Sodium 140 Potassium 4.0 Chloride 111 H Carbon Dioxide 23 Anion Gap 6.0 BUN 15 Creatinine 0.70 Est Cr Clr Drug Dosing 77.0 Est GFR ( Amer) 106.9 Est GFR (Non-Af Amer) 92.2 BUN/Creatinine Ratio 21.9 H Glucose 98 Calcium 9.4 Magnesium 2.0 Total Bilirubin 0.3 AST 45 H ALT 56 Alkaline Phosphatase 95 Troponin I 2.290 H* 1.740 H* NT-Pro-B Natriuret Pep 2236 H Total Protein 7.6 Albumin 3.2 L Globulin 4.4 H Albumin/Globulin Ratio 0.7 L Lipase 283 01/03/20 12:18 WBC RBC Hgb Hct MCV MCH MCHC RDW Std Deviation RDW Coeff of [place] Plt Count MPV Immature Gran % (Auto) Neut % (Auto) Lymph % (Auto) [place] % (Auto) Eos % (Auto) Baso % (Auto) Immature Gran # (Auto) Neut # (Auto) Lymph # (Auto) [place] # (Auto) Eos # (Auto) Baso # (Auto) APTT 35.7 H PTT Ratio 1.3 Sodium Potassium Chloride Carbon Dioxide Anion Gap BUN Creatinine Est Cr Clr Drug Dosing Est GFR ( Amer) Est GFR (Non-Af Amer) BUN/Creatinine Ratio Glucose Calcium Magnesium Total Bilirubin AST ALT Alkaline Phosphatase Troponin I NT-Pro-B Natriuret Pep Total Protein Albumin Globulin Albumin/Globulin Ratio Lipase Diagnostic Findings Echo report reviewed from 12/29/2019. Cath images from 12/29/2019 personally reviewed as above. ECG personally reviewed: ECG 01/03/2020 10:53: NSR at [address]/T wave abnormality. ECG 01/03/2012 at 5:23 a.m.: Sinus bradycardia [address]/T-wave abnormality. ECG 01/03/2020 at 3:39 a.m.: Sinus rhythm [address]/T-wave abnormality CTA chest 01/03/2020: No aortic dissection. No acute findings per Radiology. Mild emphysema. CTA abdomen/pelvis 01/03/2020: No acute process. Infrarenal AAA 4.2 cm stable from 12/29/2019. Medications Administered Current Inpatient Medications Acetaminophen (Tylenol) 650 mg PO Q4H PRN PRN Reason: Pain or Fever Stop: 02/02/20 08:46 Al Hydrox/Mg Hydrox/Simethicone (Maalox) 15 ml PO Q4H PRN PRN Reason: Dyspepsia Stop: 02/02/20 08:46 Aspirin (Ecotrin) 325 mg PO DAILY [facility] Stop: 02/02/20 08:59 Last Admin: 01/03/20 10:25 Dose: 325 mg Documented by: Atorvastatin Calcium (Lipitor) 40 mg PO QAM [facility] Stop: 02/02/20 08:59 Last Admin: 01/03/20 10:25 Dose: 40 mg Documented by: Clopidogrel Bisulfate (Plavix) 75 mg PO DAILY [facility] Stop: 02/02/20 08:59 Last Admin: 01/03/20 10:25 Dose: 75 mg Documented by: Famotidine (Pepcid) 20 mg PO BID [facility] Stop: 02/02/20 08:59 Last Admin: 01/03/20 10:24 Dose: 20 mg Documented by: Heparin Sodium/Dextrose (Heparin Sodium/Dextrose) 25,000 units in 500 mls @ 17 mls/hr IV .Q24H GENNA; Protocol Stop: 02/02/20 05:59 Last Titration: 01/03/20 13:11 Dose: 850 units/hr, 17 mls/hr Documented by: Potassium Chloride/Sodium Chloride (Normal Saline W/20 Meq Kcl) 20 meq in 1,000 mls @ 100 mls/hr IV .Q10H [facility] Stop: 02/02/20 09:29 Last Admin: 01/03/20 10:29 Dose: 100 mls/hr Documented by: Ioversol (Optiray 320 125ml) 125 ml IV ONCE PRN PRN Reason: Interaction Checking Stop: 01/07/20 04:32 Last Admin: 01/03/20 04:33 Dose: 118 ml Documented by: Magnesium Hydroxide (Milk Of Magnesia) 30 ml PO Q12H PRN PRN Reason: Constipation Stop: 02/02/20 08:46 Metoprolol Tartrate (Lopressor) 12.5 mg PO BID [facility] Stop: 02/02/20 08:59 Last Admin: 01/03/20 10:27 Dose: 12.5 mg Documented by: Morphine Sulfate (Morphine Sulfate) 2 mg IV Q30M PRN PRN Reason: Chest Pain Stop: 01/17/20 08:46 Last Admin: 01/03/20 10:51 Dose: 2 mg Documented by: Nitroglycerin (Nitrostat) 0.4 mg SL UD PRN PRN Reason: Chest Pain Stop: 02/02/20 08:46 Last Admin: 01/03/20 10:53 Dose: 0.4 mg Documented by: Ondansetron HCl (Zofran) 4 mg IV Q6H PRN PRN Reason: Nausea Stop: 02/02/20 08:46 Last Admin: 01/03/20 10:51 Dose: 4 mg Documented by: PG Care Time/CCT Total # of Minutes Spent Total Time Spent with Patient: Total time spent is greater than 50% in coordination of care (as documented) at patient's floor/unit and/or counseling patient: Coding Level of Care Code 29824 Inpt Consult Level 5 Diagnoses Unstable angina I20.0 CAD (coronary artery disease) I25.10 HTN (hypertension) I10 Epigastric pain R10.13 Hyperlipidemia LDL goal <70 E78.5
[2020-01-03 12:37] LABS: Partial Thromboplastin Ratio 1.3; Partial Thromboplastin Time 35.7 Seconds (21.0-31.0)
[2020-01-03] MEDS ORDERED: HEPARIN IV BOLUS 4,000 UNITS in SYRINGE 0 ML IV ONE (13:30)
--- NOTE | 2020-01-03 15:03 | History & Physical Bridge Note ---
Date of Service January 03, 2020 History & Physical Bridge Note I have examined the patient, reviewed the History & Physical and in the interval since the performance of the History & Physical I have noted the following changes of clinical significance: patient still with epigastric discomfort, she rates it as a 4 out of 10, fairly constant a little better with stretching her arms above her head no nausea, she can eat, the pain not worse with eating, she is moving her bowels discussed that we will get the left heart cath today, see if symptoms improve can work up the epigastric pain with GB US, HIDA scan? consider GI consult, but stressed that we need to make sure heart is stable updated her family at the bedside
[2020-01-03] MEDS ORDERED: MIDAZOLAM HCL 1 MG/ML 2ML VIAL ONE (15:06)
[2020-01-03] MEDS ORDERED: fentaNYL citrate 100 MCG/2 ML VIAL ONE (15:06)
[2020-01-03] MEDS ORDERED: HEPARIN (PORCINE) 1000 UNIT/ML 10 ML (CATH LAB USE ONLY) ONE (15:06)
[2020-01-03] MEDS ORDERED: NiCARDipine HCL INJ 2.5 MG/ML 10 ML AMP ONE (15:06)
[2020-01-03] MEDS ORDERED: NITROGLYCERIN/D5W 100MCG/ML 20ML SYR ONE (15:07)
[2020-01-03] MEDS ORDERED: CLOPIDOGREL BISULFATE 300 MG TAB ONE (17:26)
--- NOTE | 2020-01-03 17:48 | Pre Anesthesia Assessment ---
Date of Service January 03, 2020 Pre Sedation Assessment Vital Signs Temp Pulse Pulse Resp BP BP Pulse Ox 01/03/20 14:45 60 01/03/20 11:34 97.5 F L 61 24 105/69 94 01/03/20 10:57 64 119/74 01/03/20 09:30 65 70 123/77 01/03/20 08:06 68 16 117/74 98 01/03/20 06:30 67 20 119/81 100 01/03/20 05:58 61 20 127/79 100 01/03/20 05:34 67 20 136/81 97 01/03/20 05:10 62 18 138/85 99 01/03/20 04:33 68 18 150/88 H 100 01/03/20 04:09 66 18 151/85 H 100 01/03/20 03:56 100 01/03/20 03:49 97.9 F 72 22 161/87 H 100 Cardiovascular RRR, no murmur, no edema Respiratory normal respiratory effort, lungs clear to auscultation Pre-Sedation Airway Assessment Smoking Status: Current every day smoker Hx Sleep Apnea: No Short, Thick Neck: Yes Thyromental Distance: > or= 3.5 Finger Breadths Oral Cavity: + WNL Mallampati Class: III ASA: ASA3 NPO Status Date of Last Intake of Fluids: 01/02/20 Time of Last Intake of Fluids: 18:00 Date of Last Intake of Solid Food: 01/02/20 Time of Last Intake of Solid Foods: 18:00 Procedure Planning Contraindications for Sedation: none Current Medications Reviewed: Yes Notes The planned sedation has been discussed with the patient. Informed Consent was obtained. I have identified the patient, determined the appropriateness of sedation and have assessed the patient immediately prior to the procedure. All medicine(s) and interventions are by my order.
--- NOTE | 2020-01-03 17:48 | Post Anesthesia Assessment ---
Date of Service January 03, 2020 Post Sedation Assessment Vital Signs Temp Pulse Pulse Resp BP BP Pulse Ox 01/03/20 14:45 60 01/03/20 11:34 97.5 F L 61 24 105/69 94 01/03/20 10:57 64 119/74 01/03/20 09:30 65 70 123/77 01/03/20 08:06 68 16 117/74 98 01/03/20 06:30 67 20 119/81 100 01/03/20 05:58 61 20 127/79 100 01/03/20 05:34 67 20 136/81 97 01/03/20 05:10 62 18 138/85 99 01/03/20 04:33 68 18 150/88 H 100 01/03/20 04:09 66 18 151/85 H 100 01/03/20 03:56 100 01/03/20 03:49 97.9 F 72 22 161/87 H 100 Recovery Score Activity: Moves 4 extremities Respiration: Deep Breath/Cough Circulation: +/-20% PreAnes Value Consciousness: Fully Awake Oxygen Saturation: O2 needed for >90% Discharge Sedation Level of Care: Fast Track Phase II Post Sedation Plan On clinical assessment, the patient appears to have tolerated the sedation without complications. Patient is recovering as anticipated. Patient will continue to be monitored by nursing and may be discharged when sedation discharge criteria are met per below protocol. Upon Completions of procedure up to 15 minutes continue every 5 minute vital signs and the P.A.R. score; then discharge to a Phase I or Fast Track to Phase II per the following guidelines: * Discharge Patient to appropriate Phase II area if PAR is 8 or greater or return to pre- procedure baseline. The post - procedure orders will be as directed. * If PAR score is less than 8 or not return to pre-procedure baseline then patient will follow Phase I monitoring till PAR is reached for Phase II. The Phase I may be done in procedure room or may call to secure a Phase I area. * If naloxone or flumazenil are used for reversal, hold in Phase I for continued monitoring from when last reversal dose was given for a minimum of 60 minutes or longer pending the nurse and/or physician discretion of patient condition before discharge to Phase II. Please call the Sedation Physician to re-evaluate and complete post-note for discharge to Phase II area. Do NOT discharge from procedure sedation or Phase 1 until post- sedation evaluation note is complete by procedure /sedation MD Sedation Discharge Instructions to be given to the patient at discharge to home.
--- NOTE | 2020-01-03 18:04 | Cardiac Catheterization ---
ACC Data: Aerial Crop Duster Cardiac Status Clinical evaluation leading to the procedure CAD Presenation: Non STEMI Anginal Classification: CCS IV Heart Failure: No Cardiogenic Shock within 24 Hours: No Cardiac Arrest within 24 Hours: No Imaging Studies Past 6 Months: Yes Stress Studies Past 6 Months: No Diagnostic Physicians Name: Austen Pedro MD Status: Elective Closure Device Percutaneous Entry Location: Radial Closure Device: Radial Band Recommendations: PCI without planned CABG PCI Indication: Unstable Angina Lesion Segment Name: Proximal LAD Culprit Artery: Yes Stenosis Prior to Rx (%): 75 Chronic Total Occlusion: No IVUS: Yes FFR: No Pre-Procedure ILNO Flow: 3 Previously Treated Lesion: No Lesion Complexity: Non-High/Non-C Lesion Length (mm): 20 Thrombus Present: No Bifurcation Lesion: Yes Guidewire Across Lesion: Stenosis Post-Procedure (%): 0 Post-Procedure LINO Flow: 3 Devices(s) Deployed: Yes Yes Lesion #2 Segment Name: Occluded proximal ramus Culprit Artery: Yes Stenosis Prior to Rx (%): 100 Chronic Total Occlusion: Yes IVUS: No FFR: No Pre-Procedure LINO Flow: 0 Previously Treated Lesion: No Lesion Complexity: High/C Lesion Length (mm): 30 Thrombus Present: Yes Bifurcation Lesion: Yes Guidewire Across Lesion: Yes Stenosis Post-Procedure (%): 0 Post-Procedure LINO Flow: 3 Devices(s) Deployed: Yes Intraprocedure Events Significant Disection: No Perforation: No Cardiac Cath Procedure Full Procedure Date January 03, 2020 Pre-Procedure Diagnosis Pre-Procedure Diagnosis: Acute Coronary Syndrome AUC Score AUC Score: 09 Post-Procedure Diagnosis Post-Procedure Diagnosis: Severe CAD and Successful PCI Procedure(s) Performed Procedure(s) Performed: Coronary Angiography, Drug Eluting Stent and IVUS Saddle Cutter Austen Pedro MD Building Services Engineer(s) Felipe Estimated Blood Loss Estimated Blood Loss: 10 Medication(s) Medication(s): Clopidogrel, Fentanyl, Heparin, Lidocaine 1%, Nicardipine, Nitroglycerin and Versed Summary of Findings Indication: Persistent angina, post recent KS Access: 6 Fr slender right radial artery Catheters: EBU 3.5 guide Findings: LM -large caliber vessel without significant disease LAD -large caliber vessel, diffuse eccentric proximal to mid disease with 70 to 80% focal stenosis at takeoff of first diagonal, mid and distal vessel widely patent. First diagonal small to medium caliber with 80% ostial stenosis. Circumflex -large caliber, dominant, 20% proximal otherwise no significant disease. Ramusoccluded proximally with apparent thrombus, distal vessel fills partially via left to left collaterals. RCA -small caliber, nondominant -- PCI of LAD-- Antithrombotic therapy: Heparin, clopidogrel Procedure: Left main cannulated with EBU 3.5 Skip Hoist Operator 50 wire passed across lesion into distal vessel IVUS used to assess extent of disease, degree of calcification. Severe 80% moderately calcified focal stenosis at takeoff of diagonal with disease extending almost back to LAD ostium. Mid LAD lesion predilated with 2.5 compliant balloon Dilated lesion stented with 4.0 x 26 mm [place] drug-eluting stent Stent post-dilated with 4.0 noncompliant balloon Post procedure LINO 3 flow, stent well expanded with minimal residual stenosis and no apparent cardiac complications. Severe residual stenosis in diagonal but LINO-3 flow. PCI of ramus Eventually able to cross proximal occlusion with long whisper wire Distal vessel intraluminal position confirmed via injection through OTW balloon Proximal obstruction dilated with 2.0 balloon Ostial/proximal vessel stented with 2.5 x 26 mm [place] drug-eluting stent Residual severe disease distal to stent covered with 2.5 x 15 mm taylor drug- eluting stent Stents postdilated with stent balloon IC vasodilators administered for spasm Post procedure LINO III flow, stent well expanded with no apparent coronary complications. Arterial Closure: TR band Summary: 1. Severe multi vessel coronary artery disease -70 to 80% proximal to mid LAD stenosis. 80% ostial first diagonal stenosis 100% acute on chronic proximal ramus occlusion 2. Successful PCI of proximal to mid LAD with single drug-eluting stent (4.0 x 26 mm [place]). 3. Successful PCI of proximal to mid ramus occlusion with 2 overlapping drug- eluting stents (2.5 x 26, 2.5 x 15 mm [place]). Recommendations: To PCU for continued monitoring Reloaded with clopidogrel 300 mg in Aerial Crop Duster Continue dual-antiplatelet therapy for at least 1 year Continue statin, and ASCVD risk factor modification If persistent epigastric symptoms recommend additional work-up for noncardiac causes of ongoing pain. Hemodynamics Rest Ao:: 130/69/95 Final Ao: 135/72/1 LV: -- Recommendations Recommendations: PCI without planned CABG Specimens Specimens: None Radiation Exposure (mGy) 3557 Contrast (mls) 240 Fluids (cc crystalloids) Fluids (cc crystalloids): 185 Drains Drains: None Anesthesia Moderate Procedural Complication(s) None Disposition PCU I attest to the content of the Intraoperative Record and any orders documented therein. Any exceptions are noted below. [facility] Card Cath Procedure Codes Cardiac Catheterization Procedure 1: Cardiovascular Cath Procedures: 83143 Coronaries Therapeutic Services & Ancillary Proc Procedure 1: Cardiovascular Tx and Anc Procedures: 03204 IV Ultrasound (Coronary or Graft) Moderate Sedation Procedure 1: Sedation/Anesthesia: 22946 Mod Sedation by the same physician;Init15 Min Child Age 5 & Up Procedure 2: Sedation/Anesthesia: 36570 Mod Sedation by the same physician; Ea [id number] Minutes Stenting Procedure 1: Cardiovascular Stent Procedures: 69436 Perc transluminal revascularization of chronic total occlusion, Procedure 2: Cardiovascular Stent Procedures: 91162 Ea addl branch of a major coronary artery PG Care Time/CCT Total # of Minutes Spent Total Time Spent with Patient: Total time spent is greater than 50% in coordination of care (as documented) at patient's floor/unit and/or counseling patient:
[2020-01-03 20:24] LABS: Partial Thromboplastin Ratio 2.4
[2020-01-03 20:32] LABS: Partial Thromboplastin Time 66.4 Seconds (21.0-31.0)
--- NOTE | 2020-01-03 22:20 | Electrocardiogram Report ---
Test Reason : Blood Pressure : / mmHG Vent. Rate : 070 BPM Atrial Rate : 070 BPM P-R Int : 126 ms QRS Dur : 092 ms QT Int : 420 ms P-R-T Axes : 069 071 091 degrees QTc Int : 453 ms Poor data quality, interpretation may be adversely affected Normal sinus rhythm Possible Left atrial enlargement Nonspecific ST abnormality Abnormal ECG When compared with ECG of 30-DEC-2019 06:42, T wave inversion no longer evident in Lateral leads Confirmed by Tristan Carlton ([id number]) on 01/03/2020 10:20:20 PM Referred By: REFERRED SELF Confirmed By:Tristan Carlton
--- NOTE | 2020-01-03 22:29 | Electrocardiogram Report ---
Test Reason : Blood Pressure : / mmHG Vent. Rate : 059 BPM Atrial Rate : 059 BPM P-R Int : 136 ms QRS Dur : 092 ms QT Int : 440 ms P-R-T Axes : 063 054 098 degrees QTc Int : 435 ms Sinus bradycardia Nonspecific ST and T wave abnormality Abnormal ECG When compared with ECG of 03-JAN-2020 03:39, No significant change was found Confirmed by Tristan Carlton ([id number]) on 01/03/2020 10:29:15 PM Referred By: REFERRED SELF Confirmed By:Tristan Carlton
--- NOTE | 2020-01-03 22:58 | Electrocardiogram Report ---
Test Reason : Blood Pressure : / mmHG Vent. Rate : 060 BPM Atrial Rate : 060 BPM P-R Int : 130 ms QRS Dur : 090 ms QT Int : 426 ms P-R-T Axes : 067 061 111 degrees QTc Int : 426 ms Normal sinus rhythm Possible Left atrial enlargement Nonspecific ST and T wave abnormality Abnormal ECG When compared with ECG of 03-JAN-2020 05:23, No significant change was found Confirmed by Tristan Carlton ([id number]) on 01/03/2020 10:58:31 PM Referred By: REFERRED SELF Confirmed By:Tristan Carlton
[2020-01-04] MEDS: ACETAMINOPHEN 325 MG TAB PO PRN (01:11)
[2020-01-04 06:42] LABS: Basophils # (auto) 0.03 K/uL (0-0.2); Basophils % (auto) 0.4 %; Eosinophils # (auto) 0.17 K/uL (0-0.5); Eosinophils % (auto) 2.1 %; Hematocrit (blood only) 39.5 % (37-47); Immature Granulocytes # (auto) 0.04 K/uL (0.00-0.02); Immature Granulocytes % (auto) 0.5 %; Lymphocytes # (auto) 2.21 K/uL (1.2-3.4); Lymphocytes % (auto) 27.1 %; Mean Corpuscular Hgb Conc 32.9 g/dL (32-36); Mean Corpuscular Volume 94.3 fL (80-100); Mean Platelet Volume 11.1 fL (7.4-10.4); Monocytes # (auto) 0.77 K/uL (0.11-0.59); Monocytes % (auto) 9.4 %; Neutrophils # (auto) 4.93 K/uL (1.4-6.5); Neutrophils % (auto) 60.5 %; Platelet Count 223 K/uL (130-400); RDW Coefficient of Variation 13.6 % (11.5-14.5); Red Blood Count 4.19 M/uL (4.2-5.4); White Blood Count 8.15 K/uL (4.8-10.8)
[2020-01-04 06:53] LABS: INR 1.1 (0.9-1.1); Prothrombin Time 11.1 Seconds (9.0-12.0)
[2020-01-04 07:22] LABS: Albumin Level 2.8 gm/dl (3.4-5.0); BUN Creatinine Ratio 21.1 (10-20); Calcium 8.9 mg/dl (8.5-10.1); Est GFR (African American) 95.2; Est GFR (Non-African American) 82.2; Potassium 4.4 mmol/L (3.5-5.1)
[2020-01-04 07:25] LABS: Albumin Globulin Ratio 0.7 (0.9-2); Bilirubin,Total 0.5 mg/dl (0.2-1); Globulin 3.9 gm/dl (2.5-4.0); Phosphorus 3.1 mg/dl (2.5-4.9); Total Protein 6.7 gm/dl (6.4-8.2)
[2020-01-04] MEDS: ONDANSETRON INJ 2 MG/ML 2 ML VIAL IV PRN (09:10)
[2020-01-04] MEDS ORDERED: NICOTINE 7 MG/24 HR TDSY TD SCH (10:30)
--- NOTE | 2020-01-04 10:33 | Cardiology Progress Note ---
Date of Service January 04, 2020 Assessment & Plan (1) CAD (coronary artery disease): Patient underwent drug-eluting stent placement x2 (mid-LAD and ramus intermedius) on 01/03/20 (yesterday). No further anginal type symptoms, modest enzyme bump may be secondary to mechanical manipulation at the time of catheterization, however would check further troponins to follow trend. No ECG findings to suggest ongoing myocardial ischemia, even during her current nonspecific symptoms (nausea, epigastric pain, etc.). Continue on dual anti-platelet therapy of aspirin 81 mg daily and clopidogrel 75 mg daily. Continue statin. Continue low-dose beta-kaelyn (tendency to bradycardia prevents higher doses). Cardiology follow-up previously scheduled for 01/13/2020 at the [facility]. (2) Lateral myocardial infarction: Recent lateral myocardial infarction (see prior admission notes for details) (3) Epigastric pain: Agree with workup for gallbladder disease since she does have right greater than left epigastric pain, postprandial symptoms, and abnormal findings on abdominal CT during her prior recent admission (distended gallbladder with equivocal wall thickening). The absence of classic pericarditis ECG findings, lack of positional changes in her epigastric pain, and the intermittent nature of her symptoms, at this point make the diagnosis of post infarct pericarditis less likely and gallbladder disease more likely as an explanation for her nonspecific symptoms both last admission and currently. (4) Abdominal aortic aneurysm: Multiple CT scans show no evidence of rupture/leakage, follow-up with vascular surgery as outpatient (5) Tobacco use: She has been abstinent since her prior hospital admission. Agree with nicotine patch to prevent withdrawal symptoms as yet another confounding factor given her recurring nonspecific symptoms. Admission and Anticipated Discharge Date Admission Date: January 03, 2020 Subjective Patient felt perfectly well early this morning, no symptoms whatsoever. However, after eating breakfast she noted onset of [id number] epigastric discomfort (nonradiating), lightheadedness (even while lying in bed), diaphoresis, and nausea. At the time of my evaluation, she was noting each of the symptoms and had just received Zofran. Hemodynamics were normal prior to and during the episode. ECG on admission showed sinus rhythm with [address] depression in the inferior and anterolateral leads, ECG when asymptomatic this morning as well as a follow-up ECG during symptoms showed no change in the baseline ST abnormalities. Physical Exam Physical Exam: Normal habitus middle-aged white female who appears uncomfortable but not acutely distressed. Afebrile. BP low normal, pulse in the 50s and regular, respirations 18. Skin: No ecchymoses or generalized lesions. HEENT: Unremarkable. Neck: No carotid bruits or jugular venous distention. Lungs: Mildly decreased breath sounds but clear. Cardiac: Regular rhythm regular rhythm with normal S1 and S2, 2/6 apical holosystolic murmur which is nonradiating. No rub or gallop. Abdomen: Mild epigastric tenderness, more pronounced right side than left. No guarding or rigidity. Extremities: No edema. Peripheral pulses brisk. Neurologic: Normal affect and conversation, nonfocal. Results & Data ([facility]) Vital Signs (Past 12 Hours) Vital Signs Temp Pulse Pulse Pulse Resp BP Pulse Ox 01/04/20 07:48 97.7 F 54 L 18 129/78 98 01/04/20 04:07 98.2 F 62 18 98/60 L 99 01/04/20 00:00 60 01/03/20 23:29 97.9 F 59 L 18 117/73 98 Laboratory Results 01/03/20 01/03/20 01/04/20 09:05 18:17 00:42 WBC Creatinine Troponin I 1.740 H* 1.480 H* 4.200 H* 01/04/20 01/04/20 06:04 06:04 WBC 8.15 Creatinine 0.77 Troponin I Diagnostic Findings ECGs as noted in HPI. PG Care Time/CCT Total # of Minutes Spent Total Time Spent with Patient: Total time spent is greater than 50% in coordination of care (as documented) at patient's floor/unit and/or counseling patient: Coding Level of Care Code 01221 Subseq Hosp Care Lvl 3 Diagnoses CAD (coronary artery disease) I25.10 Lateral myocardial infarction I21.29 Epigastric pain R10.13 Abdominal aortic aneurysm I71.4 Presence of rupture: without rupture Tobacco use Z72.0 (1) Abdominal aortic aneurysm Presence of rupture: without rupture Qualified Code(s): I71.4 - Abdominal aortic aneurysm, without rupture
[2020-01-04] MEDS: ASPIRIN 81 MG ECTAB PO SCH (10:57)
[2020-01-04] MEDS: CLOPIDOGREL BISULFATE 75 MG TAB PO SCH (10:57)
[2020-01-04] MEDS: FAMOTIDINE 20 MG TAB PO SCH ×2 (10:57→20:36)
[2020-01-04] MEDS: ATORVASTATIN 40 MG TAB PO SCH (10:57)
[2020-01-04] MEDS: METOPROLOL TARTRATE 25 MG TAB PO SCH ×2 (10:58→20:35)
[2020-01-04] MEDS: NICOTINE 14 MG/24 HR PATCH TD SCH (13:07)
--- NOTE | 2020-01-04 14:39 | Hospitalist Progress Note ---
Date of Service January 04, 2020 Assessment & Plan (1) Unstable angina: Unstable angina/CAD/multiple LAD stenoses on cardiac catheterization of 12-29-19, recent non-STEMI/hypertension- left heart cath on 01/02 with CHEN placed in proximal mid LAD and ramus no chest pain today mild elevation in troponin to 4, repeat tomorrow Continue aspirin 81 mg p.o. daily, clopidogrel 75 mg p.o. daily and metoprolol tartrate 12.5 mg p.o. twice daily. stop heparin drip much improved from cardiac standpoint, will work up epigastric pain further (2) Epigastric pain: pain was triggered by eating this morning, had no pain when he woke up associated with some nausea on CT scan he had thickening of gall bladder wall, no stones seen LFT normal, WBC normal, lipase normal will get RUQ US as first step later today could consider HIDA scan if the US is equivocal (3) CAD (coronary artery disease): See above (4) HTN (hypertension): See above (5) Non-ST elevation myocardial infarction (NSTEMI): (6) Post-infarction pericarditis: seems less likely will work up GI cause of epigastric pain (7) Abdominal aortic aneurysm: Infrarenal AAA, stable at 4.3 cm compared to the most recent CT (8) COPD (chronic obstructive pulmonary disease): COPD- No acute need for inhalers at this time. (9) Tobacco use: Cessation counseling (10) Hyperlipidemia LDL goal <70: Continue atorvastatin 40 mg daily Admission and Anticipated Discharge Date Admission Date: January 03, 2020 Subjective patient was doing well this morning, she had no pain she got up, used restroom, brushed her teeth, felt well she then ate some eggs, toast for breakfast and shortly afterwards had epigastric pain that was moderate to severe she also had some nausea, better with Zofran d/w Dr. Woods, he agrees that we need to work up gastrointestinal cause of pain will get US vitals stable, WBC normal, LFT normal, troponin did go up slightly to 4, likely from cath discussed plan with RN will keep on tele Review of Systems Review of Systems: All systems reviewed & are unremarkable except as noted in HPI & below Respiratory: no cough and no dyspnea Cardiovascular: no chest pain Gastrointestinal: + abdominal pain (epigastric, after eating) and + nausea; no vomiting, no constipation and no diarrhea/loose stools Physical Exam Constitutional: WD/WN, vitals as above Eyes: PERRL, conjunctivae normal, anicteric sclerae ENMT: external ear and nose normal, oropharynx normal Neck: trachea midline, no thyromegaly Respiratory: normal respiratory effort, lungs clear to auscultation Cardiovascular: RRR, no murmur, no edema Gastrointestinal (Abdomen): Inspection/Auscultation: abdomen normal to inspection and normal bowel sounds; abdomen not distended Percussion/Palpation: + abdomen tender (RUQ) and abdomen soft; no guarding, abdomen not rigid, no hernia and no ascites Musculoskeletal: no cyanosis or clubbing, extremities motor strength 5/5 Skin: no rashes, warm and dry Neurologic: patellar DTR's 2+ bilat, sensation intact and PERRL, EOMI, accommodation nl, no face palsy, no dysarthria Psychiatric: A+Ox3, euthymic affect Lymphatic: no cervical or axillary lymphadenopathy Results & Data ([facility]) Vital Signs (Past 12 Hours) Vital Signs Temp Pulse Pulse Pulse Resp BP Pulse Ox 01/04/20 11:00 36.6 C 58 L 22 129/80 98 01/04/20 08:00 63 01/04/20 07:48 36.5 C 54 L 18 129/78 98 01/04/20 04:07 36.8 C 62 18 98/60 L 99 Laboratory Results Laboratory Results - last 24 hr 01/03/20 01/03/20 01/03/20 16:36 17:08 18:17 WBC RBC Hgb Hct MCV MCH MCHC RDW Std Deviation RDW Coeff of Ganga Plt Count MPV Immature Gran % (Auto) Neut % (Auto) Lymph % (Auto) Anderson % (Auto) Eos % (Auto) Baso % (Auto) Immature Gran # (Auto) Neut # (Auto) Lymph # (Auto) Anderson # (Auto) Eos # (Auto) Baso # (Auto) PT INR APTT PTT Ratio Activ Coag Time Kaolin 703 H 224 H Sodium Potassium Chloride Carbon Dioxide Anion Gap BUN Creatinine Est Cr Clr Drug Dosing Est GFR ( Amer) Est GFR (Non-Af Amer) BUN/Creatinine Ratio Glucose POC Glucose Calcium Phosphorus Magnesium Total Bilirubin AST ALT Alkaline Phosphatase Troponin I 1.480 H* Total Protein Albumin Globulin Albumin/Globulin Ratio 01/03/20 01/04/20 01/04/20 19:51 00:42 06:04 WBC 8.15 RBC 4.19 L Hgb 13.0 Hct 39.5 MCV 94.3 MCH 31.0 MCHC 32.9 RDW Std Deviation 47.0 H RDW Coeff of Ganga 13.6 Plt Count 223 MPV 11.1 H Immature Gran % (Auto) 0.5 Neut % (Auto) 60.5 Lymph % (Auto) 27.1 Anderson % (Auto) 9.4 Eos % (Auto) 2.1 Baso % (Auto) 0.4 Immature Gran # (Auto) 0.04 H Neut # (Auto) 4.93 Lymph # (Auto) 2.21 Anderson # (Auto) 0.77 H Eos # (Auto) 0.17 Baso # (Auto) 0.03 PT INR APTT 66.4 H* PTT Ratio 2.4 Activ Coag Time Kaolin Sodium Potassium Chloride Carbon Dioxide Anion Gap BUN Creatinine Est Cr Clr Drug Dosing Est GFR ( Amer) Est GFR (Non-Af Amer) BUN/Creatinine Ratio Glucose POC Glucose Calcium Phosphorus Magnesium Total Bilirubin AST ALT Alkaline Phosphatase Troponin I 4.200 H* Total Protein Albumin Globulin Albumin/Globulin Ratio 01/04/20 01/04/20 01/04/20 06:04 06:04 09:07 WBC RBC Hgb Hct MCV MCH MCHC RDW Std Deviation RDW Coeff of Ganga Plt Count MPV Immature Gran % (Auto) Neut % (Auto) Lymph % (Auto) Anderson % (Auto) Eos % (Auto) Baso % (Auto) Immature Gran # (Auto) Neut # (Auto) Lymph # (Auto) Anderson # (Auto) Eos # (Auto) Baso # (Auto) PT 11.1 INR 1.1 APTT PTT Ratio Activ Coag Time Kaolin Sodium 141 Potassium 4.4 Chloride 111 H Carbon Dioxide 25 Anion Gap 5.0 BUN 16 Creatinine 0.77 Est Cr Clr Drug Dosing 70.0 Est GFR ( Amer) 95.2 Est GFR (Non-Af Amer) 82.2 BUN/Creatinine Ratio 21.1 H Glucose 125 H POC Glucose 176 H Calcium 8.9 Phosphorus 3.1 Magnesium 2.0 Total Bilirubin 0.5 AST 32 ALT 42 Alkaline Phosphatase 92 Troponin I Total Protein 6.7 Albumin 2.8 L Globulin 3.9 Albumin/Globulin Ratio 0.7 L Medications Administered Current Inpatient Medications Acetaminophen (Tylenol) 650 mg PO Q4H PRN PRN Reason: Pain or Fever Stop: 02/02/20 08:46 Last Admin: 01/04/20 01:11 Dose: 650 mg Documented by: Al Hydrox/Mg Hydrox/Simethicone (Maalox) 15 ml PO Q4H PRN PRN Reason: Dyspepsia Stop: 02/02/20 08:46 Aspirin (Ecotrin Ectab) 81 mg PO DAILY [facility] Stop: 02/03/20 08:59 Last Admin: 01/04/20 10:57 Dose: 81 mg Documented by: Atorvastatin Calcium (Lipitor) 40 mg PO QAM [facility] Stop: 02/02/20 08:59 Last Admin: 01/04/20 10:57 Dose: 40 mg Documented by: Clopidogrel Bisulfate (Plavix) 75 mg PO DAILY [facility] Stop: 02/02/20 08:59 Last Admin: 01/04/20 10:57 Dose: 75 mg Documented by: Famotidine (Pepcid) 20 mg PO BID [facility] Stop: 02/02/20 08:59 Last Admin: 01/04/20 10:57 Dose: 20 mg Documented by: Ioversol (Optiray 320 125ml) 125 ml IV ONCE PRN PRN Reason: Interaction Checking Stop: 01/07/20 04:32 Last Admin: 01/03/20 04:33 Dose: 118 ml Documented by: Magnesium Hydroxide (Milk Of Magnesia) 30 ml PO Q12H PRN PRN Reason: Constipation Stop: 02/02/20 08:46 Last Admin: 01/04/20 10:59 Dose: 30 ml Documented by: Metoprolol Tartrate (Lopressor) 12.5 mg PO BID [facility] Stop: 02/02/20 08:59 Last Admin: 01/04/20 10:58 Dose: Not Given Documented by: Miscellaneous (Remove Nicoderm Patch) 1 ea N/A DAILY@0859 [facility] Stop: 02/04/20 08:58 Morphine Sulfate (Morphine Sulfate) 2 mg IV Q30M PRN PRN Reason: Chest Pain Stop: 01/17/20 08:46 Last Admin: 01/03/20 10:51 Dose: 2 mg Documented by: Nicotine (Nicoderm Cq) 14 mg TD QAM [facility] Stop: 02/03/20 11:14 Last Admin: 01/04/20 13:07 Dose: 14 mg Documented by: Nitroglycerin (Nitrostat) 0.4 mg SL UD PRN PRN Reason: Chest Pain Stop: 02/02/20 08:46 Last Admin: 01/03/20 10:53 Dose: 0.4 mg Documented by: Ondansetron HCl (Zofran) 4 mg IV Q6H PRN PRN Reason: Nausea Stop: 02/02/20 08:46 Last Admin: 01/04/20 09:10 Dose: 4 mg Documented by: PG Care Time/CCT Total # of Minutes Spent Total Time Spent with Patient: Total time spent is greater than 50% in coordination of care (as documented) at patient's floor/unit and/or counseling patient: Coding Level of Care Code 93419 Subseq Hosp Care Lvl 3 Diagnoses Unstable angina I20.0 Epigastric pain R10.13 CAD (coronary artery disease) I25.10 HTN (hypertension) I10 Non-ST elevation myocardial infarction (NSTEMI) I21.4 Post-infarction pericarditis I24.1 Abdominal aortic aneurysm I71.4 Presence of rupture: without rupture COPD (chronic obstructive pulmonary disease) J44.9 Tobacco use Z72.0 Hyperlipidemia LDL goal <70 E78.5 (1) Abdominal aortic aneurysm Presence of rupture: without rupture Qualified Code(s): I71.4 - Abdominal aortic aneurysm, without rupture
--- NOTE | 2020-01-04 14:59 | Ultrasound Report ---
US abdomen limited HISTORY: Pain. Nausea. RUQ pain. COMPARISON: None. FINDINGS: Pancreas: The pancreas demonstrates a normal echotexture. Liver: Unremarkable. Gallbladder: No gallbladder wall thickening. No gallstones. CBD: 8 mm Right kidney: No hydronephrosis. Aorta: Partially thrombosed 3.9 cm aneurysm mid abdominal aorta IMPRESSION: No significant abnormality identified. Slight prominence of the extra hepatic common bile duct at 8 m m. Partially thrombosed 3.9 cm mid abdominal aortic aneurysm. ACT 112: Negative or not required by law. The above report was generated using voice recognition software. It may contain grammatical, syntax or spelling errors. Electronically signed by: Curtis Early M.D. 01/04/2020 2:58 PM
--- NOTE | 2020-01-04 15:31 | Electrocardiogram Report ---
Test Reason : Blood Pressure : / mmHG Vent. Rate : 066 BPM Atrial Rate : 066 BPM P-R Int : 136 ms QRS Dur : 094 ms QT Int : 416 ms P-R-T Axes : 067 056 070 degrees QTc Int : 436 ms Normal sinus rhythm Nonspecific ST and T wave abnormality Abnormal ECG When compared with ECG of 03-JAN-2020 10:53, No significant change Confirmed by Tristan Carlton ([id number]) on 01/04/2020 3:30:49 PM Referred By: REFERRED SELF Confirmed By:Tristan Carlton
--- NOTE | 2020-01-04 15:56 | Electrocardiogram Report ---
Test Reason : Blood Pressure : / mmHG Vent. Rate : 060 BPM Atrial Rate : 060 BPM P-R Int : 130 ms QRS Dur : 092 ms QT Int : 426 ms P-R-T Axes : 069 068 094 degrees QTc Int : 426 ms Normal sinus rhythm Nonspecific ST and T wave abnormality Abnormal ECG When compared with ECG of 03-JAN-2020 17:57, Nonspecific T wave abnormality, worse in Anterolateral leads Confirmed by Tristan Carlton ([id number]) on 01/04/2020 3:56:43 PM Referred By: REFERRED SELF Confirmed By:Tristan Carlton
--- NOTE | 2020-01-04 16:11 | Electrocardiogram Report ---
Test Reason : Blood Pressure : / mmHG Vent. Rate : 059 BPM Atrial Rate : 059 BPM P-R Int : 126 ms QRS Dur : 090 ms QT Int : 400 ms P-R-T Axes : 068 063 101 degrees QTc Int : 396 ms Poor data quality, interpretation may be adversely affected Sinus bradycardia Possible Left atrial enlargement Nonspecific ST and T wave abnormality Abnormal ECG When compared with ECG of 04-JAN-2020 06:51, No significant change was found Confirmed by Tristan Carlton ([id number]) on 01/04/2020 4:11:20 PM Referred By: REFERRED SELF Confirmed By:Tristan Carlton
[2020-01-05] MEDS: ACETAMINOPHEN 325 MG TAB PO PRN (03:00)
[2020-01-05 06:17] LABS: Basophils # (auto) 0.05 K/uL (0-0.2); Basophils % (auto) 0.6 %; Eosinophils # (auto) 0.24 K/uL (0-0.5); Eosinophils % (auto) 2.8 %; Hematocrit (blood only) 37.7 % (37-47); Hemoglobin 12.7 g/dL (12.0-16.0); Immature Granulocytes # (auto) 0.04 K/uL (0.00-0.02); Immature Granulocytes % (auto) 0.5 %; Lymphocytes # (auto) 1.79 K/uL (1.2-3.4); Lymphocytes % (auto) 20.5 %; Mean Corpuscular Hemoglobin 31.4 pg (25-34); Mean Corpuscular Hgb Conc 33.7 g/dL (32-36); Mean Corpuscular Volume 93.1 fL (80-100); Mean Platelet Volume 10.9 fL (7.4-10.4); Monocytes # (auto) 0.85 K/uL (0.11-0.59); Monocytes % (auto) 9.7 %; Neutrophils # (auto) 5.75 K/uL (1.4-6.5); Neutrophils % (auto) 65.9 %; Platelet Count 239 K/uL (130-400); RDW Coefficient of Variation 13.3 % (11.5-14.5); RDW Standard Deviation 45.6 fL (36.4-46.3); Red Blood Count 4.05 M/uL (4.2-5.4); White Blood Count 8.72 K/uL (4.8-10.8)
[2020-01-05 06:26] LABS: Prothrombin Time 10.9 Seconds (9.0-12.0)
[2020-01-05 06:52] LABS: Albumin Level 2.9 gm/dl (3.4-5.0); BUN Creatinine Ratio 23.2 (10-20); Calcium 8.6 mg/dl (8.5-10.1); Creatinine Clr Calc Pharmacy 71.9 ml/min; Est GFR (African American) 98.3; Est GFR (Non-African American) 84.8; Magnesium 2.5 mg/dl (1.8-2.4); Potassium 4.1 mmol/L (3.5-5.1)
[2020-01-05 06:55] LABS: Albumin Globulin Ratio 0.8 (0.9-2); Bilirubin,Total 0.4 mg/dl (0.2-1); Globulin 3.5 gm/dl (2.5-4.0); Phosphorus 3.5 mg/dl (2.5-4.9); Total Protein 6.4 gm/dl (6.4-8.2)
[2020-01-05] MEDS ORDERED: SINCALIDE 1.3 MCG in 0.9 % SODIUM CHLORIDE 100 ML IV SCH (09:30)
--- NOTE | 2020-01-05 09:45 | Electrocardiogram Report ---
Test Reason : Blood Pressure : / mmHG Vent. Rate : 061 BPM Atrial Rate : 061 BPM P-R Int : 132 ms QRS Dur : 088 ms QT Int : 404 ms P-R-T Axes : 069 062 099 degrees QTc Int : 406 ms Normal sinus rhythm with sinus arrhythmia Nonspecific ST and T wave abnormality Abnormal ECG When compared with ECG of 04-JAN-2020 09:58, No significant change was found Confirmed by Tristan Carlton ([id number]) on 01/05/2020 9:45:34 AM Referred By: REFERRED SELF Confirmed By:Tristan Carlton
[2020-01-05] MEDS: METOPROLOL TARTRATE 25 MG TAB PO SCH (10:44)
[2020-01-05] MEDS: FAMOTIDINE 20 MG TAB PO SCH (10:44)
[2020-01-05] MEDS: ATORVASTATIN 40 MG TAB PO SCH (10:45)
[2020-01-05] MEDS: NICOTINE 14 MG/24 HR PATCH TD SCH (10:45)
[2020-01-05] MEDS: ASPIRIN 81 MG ECTAB PO SCH (10:46)
[2020-01-05] MEDS: CLOPIDOGREL BISULFATE 75 MG TAB PO SCH (10:46)
[2020-01-05] MEDS: MoRPHine SULFATE 2 MG/ML CARP IV PRN (10:58)
--- NOTE | 2020-01-05 10:59 | Nuclear Medicine Report ---
NUCLEAR MEDICINE HEPATOBILIARY SCAN WITH EJECTION FRACTION HISTORY: Post prandial pain COMPARISON: None. TECHNIQUE: Immediately following the intravenous administration of 5.4 mCi Tc-99m Choletec, dynamic a nterior abdominal imaging pre/post 1.3 mcg of Kinevac was performed. FINDINGS: Uniform hepatic tracer accumulation is shown. Prompt intrahepatic biliary excretion is seen. The gall bladder, common bile duct, and small bowel are all visualized by 45 minutes. This appearance represen ts the normal sequence of biliary excretion. The gall bladder ejection fraction following administration of Kinevac was 89% (normal >35%). IMPRESSION: 1. No evidence for cystic duct obstruction. 2. Gallbladder ejection fraction calculated to be 89 %. ACT 112: Negative or not required by law. Electronically signed by: Mark Henry M.D. 01/05/2020 10:58 AM
[2020-01-05] MEDS ORDERED: bisacodyL 5 MG TABEC PO ONE (11:12)
--- NOTE | 2020-01-05 14:53 | Cardiology Progress Note ---
Date of Service January 05, 2020 Assessment & Plan (1) Epigastric pain: Etiology of epigastric symptoms remains uncertain, but the symptoms are bothersome and resulted in patient's readmission to the hospital. At this point, pericarditis seems very unlikely, gallbladder has now been excluded, gastritis remains as a major consideration. On PPI. Consider endoscopy to indicate presence/absence of gastritis/ulceration and quantify severity in patient on aspirin and clopidogrel for the next several months (status post two recent drug-eluting stents). Would favor sooner rather than later, however if this cannot be achieved promptly as an inpatient, could discharge home with outpatient endoscopy arrange for sometime next week. (2) Lateral myocardial infarction: Status post stenting of LAD and ramus intermedius. Minor troponin bump yesterday was likely secondary to mechanical coronary intervention, level dropping appropriately today in ECG is benign. Continue aspirin, clopidogrel, metoprolol, and atorvastatin. Follow up with me in the [place] office at noon on 01/13/2020. (3) CAD (coronary artery disease): As above. No remaining occlusive disease post stenting. (4) HTN (hypertension): BP mostly normotensive this admission. (5) Abdominal aortic aneurysm: Multiple study showed no evidence of rupture/leakage, follow-up by vascular surgery as outpatient. Admission and Anticipated Discharge Date Admission Date: January 03, 2020 Subjective The patient feels perfectly well much of the time, but still plagued by epigastric region discomfort through the night. No chest pain, dyspnea, in no further lightheadedness. Gallbladder workup negative (ultrasound, HIDA scan), troponin declining, ECG stable to improving. Hemodynamics favorable. Physical Exam Physical Exam: Normal habitus middle-aged white female who appears comfortable. Afebrile. BP normal, pulse in the 60s and regular, respirations 18. Skin: No ecchymoses or generalized lesions. HEENT: Unremarkable. Neck: No carotid bruits or jugular venous distention. Lungs: Mildly decreased breath sounds but clear. Cardiac: Regular rhythm regular rhythm with normal S1 and S2, 2/6 apical holosystolic murmur which is nonradiating. No rub or gallop. Abdomen: Minimal epigastric tendernes. No guarding or rigidity. Extremities: No edema. Peripheral pulses brisk. Neurologic: Normal affect and conversation, nonfocal. Results & Data ([facility]) Vital Signs (Past 12 Hours) Vital Signs Temp Pulse Resp BP Pulse Ox 01/05/20 11:38 98.2 F 69 18 126/80 99 01/05/20 07:27 97.7 F 64 18 111/71 99 01/05/20 03:02 97.9 F 62 18 109/70 99 PG Care Time/CCT Total # of Minutes Spent Total Time Spent with Patient: Total time spent is greater than 50% in coordination of care (as documented) at patient's floor/unit and/or counseling patient: Coding Level of Care Code 24295 Subseq Hosp Care Lvl 3 Diagnoses Epigastric pain R10.13 Lateral myocardial infarction I21.29 CAD (coronary artery disease) I25.10 HTN (hypertension) I10 Abdominal aortic aneurysm I71.4 Presence of rupture: without rupture (1) Abdominal aortic aneurysm Presence of rupture: without rupture Qualified Code(s): I71.4 - Abdominal aortic aneurysm, without rupture
--- NOTE | 2020-01-05 15:13 | Discharge Summary ---
Date of Service January 05, 2020 Admission HPI Per Admitting Provider The patient is a 64-year-old female with a past medical history including CAD, hypertension, non-STEMI, postinfarction pericarditis, tobacco use, abdominal aortic aneurysm, and COPD. She underwent cardiac catheterization on 12/29/[address] Bj Joseph, which was significant for LAD stenoses of 50 to 60% early mid, a D1 medium caliber with ostial 70% and S1 with 90% ostial stenosis. Decision was made to undergo medical management, as wire was unable to be passed to attempt to stent. The patient had been doing well since discharge on 12/30, until this evening. Principal Diagnosis Unstable angina Discharge Exam Constitutional WD/WN, vitals as above Eyes PERRL, conjunctivae normal, anicteric sclerae ENMT external ear and nose normal, oropharynx normal Neck trachea midline, no thyromegaly Respiratory normal respiratory effort, lungs clear to auscultation Cardiovascular RRR, no murmur, no edema Gastrointestinal (Abdomen) Inspection/Auscultation: abdomen normal to inspection and normal bowel sounds; abdomen not distended Percussion/Palpation: + abdomen tender (epigastric, bilateral lower ribs at the costal margin) and abdomen soft; no guarding, abdomen not rigid, no hernia and no ascites Musculoskeletal no cyanosis or clubbing, extremities motor strength 5/5 Skin no rashes, warm and dry Neurologic patellar DTR's 2+ bilat, sensation intact and PERRL, EOMI, accommodation nl, no face palsy, no dysarthria Psychiatric A+Ox3, euthymic affect Lymphatic no cervical or axillary lymphadenopathy Discharge Data Allergies Allergy/AdvReac Type Severity Reaction Status Date / Time No Known Allergies Allergy Mild Verified 01/03/20 04:06 Consultations 01/03/20 06:12 ED Decision to Admit Stat 01/03/20 08:47 Consult Cardiology Routine Consult Case Management - Discharge Planning Routine Procedures Performed Operation Date: 01/03/20 14:00 Actual Procedures p Drug Eluting Stent SGl Vessel - Zen Pedro MD s Drug Eluting Stent each ADDTL Vessel - Zen Pedro MD s Cineradiography w/Routine Exam - Zen Pedro MD p Cath, Left with Cors and Vent - Zen Pedro MD s IVUS Coronary Single Vessel - Zen Pedro MD Ordered Studies 01/03/20 03:54 CT angio abd pelvis wo/w con Urgent CT angio chest dissec wo/w con Urgent 01/03/20 15:15 CL Cath Imgs for PACS use only Routine 01/03/20 17:54 CL IVUS Coronary Single Vessel Routine 01/04/20 14:30 US abdomen limited Urgent Hospital Course (1) Unstable angina: Unstable angina/CAD/multiple LAD stenoses on cardiac catheterization of 12-29-19, recent non-STEMI/hypertension- left heart cath on 01/02 with CHEN placed in proximal mid LAD and ramus no chest pain following procedure mild elevation in troponin to 4, repeated today, down to 1.7 Continue aspirin 81 mg p.o. daily, clopidogrel 75 mg p.o. daily and metoprolol tartrate 12.5 mg p.o. twice daily. stopped heparin drip prior to cath much improved from cardiac standpoint, safe for discharge and follow up with Dr. Woods (2) Epigastric pain: pain was triggered by eating in the morning on 01/03, had no pain when she woke up associated with some nausea on CT scan he had thickening of gall bladder wall, no stones seen LFT normal, WBC normal, lipase normal RUQ US on 01/03 with no stones, no evidence of cholecystitis HIDA with EF on 01/04 showed no signs of cholecystitis and the gall bladder EF was 89%, thus no evidence of chronic cholecystitis or dyskinesia on exam, she is tender to light palpation in epigastric region, tender to palpation over ribs pain improves with laying back and putting hands above her head, stretching out her abdomen she ambulated in the sandoval, several labs, said it felt good to move around we discussed that we have ruled out vast majority of possible causes, could consider EGD as next step in work up less inclined to to think it is gastritis due to tenderness to just light palpation and rib pain not always associated with eating, never had melena, Hb has been stable, doubt ulcer patient not thrilled with staying longer in hospital to get possible EGD on 01/05, plus GI would likely be less inclined to scope with NSTEMI one week ago for now, will treat with Pepcid BID, use Tums or Maalox for pain if it helps try using heat three times a day, stretching, if the pain is intense can try Ultram follow up with PCP, Dr. Woods (3) CAD (coronary artery disease): See above (4) HTN (hypertension): See above (5) Non-ST elevation myocardial infarction (NSTEMI): (6) Post-infarction pericarditis: seems less likely troponin going down no longer with chest pain, strictly epigastric pain (7) Abdominal aortic aneurysm: Infrarenal AAA, stable at 4.3 cm compared to the most recent CT follow up US every 6 months can follow up with vascular surgery if it expands (8) COPD (chronic obstructive pulmonary disease): COPD- No acute need for inhalers at this time. (9) Tobacco use: Cessation counseling (10) Hyperlipidemia LDL goal <70: Continue atorvastatin 40 mg daily Total Time Total Time Spent Total Time Spent (In Minutes): 36 minutes Total Time Includes: Examination of the Patient, Discharge Planning, Medication Reconciliation and Communication With Other Providers (Dr Woods) Discharge Plan Discharge Items Patient Disposition: Home - Self-Care Reason For Visit: UA/ACS Discharge Diagnosis: Unstable angina Epigastric pain Constipation Condition on Discharge: Good Goals: improve activity level move bowels look for improvement in epigastric pain follow up with Dr. Woods next week Activity: Per Instructions section Lifting Comment: no more than 15lbs right arm for a week Bathing: No limitations Sexual Activity: Wait until after follow-up appointment Exercise/Sports: Gradually increase as tolerated Exercise Comment: nothing strenuous until cleared by cardiology Driving/Machine Use: Resume 1 day after discharge Weightbearing: Full weightbearing Non-emergency contact: Primary Care Provider and Die Cast Supervisor Call non-emergency contact if: you have any medication questions, your symptoms worsen, your pain is not controlled and you have a fever Follow-up/Referrals: Onel Woods MD [Physician] - (has appt next week, ) Judy Reyna MD [Primary Care Provider] - Diet: Heart Healthy and Low Fat Addtl Attending Provider Instructions: Medications: ASPIRIN: dose reduced to 81mg daily from 325mg FAMOTIDINE: dose increase to twice a day from once a day ZOFRAN: take as needed for any nausea ULTRAM: 50mg as needed for pain NICOTINE PATCH: continue to use for next two weeks Unstable angina, recent NSTEMI, severe coronary disease s/p heart cath with successful drug eluting stents placed continue aspirin and Plavix continue Lipitor and metoprolol follow up with Dr. Woods next week as scheduled repeat troponin trending down Epigastric pain: still unclear etiology but leaning toward muscular as you are very tender with just light palpation and ribs are tender can try heating pad for 20 minutes at a time, only use 3 times a day increased Pepcid to twice a day, take Zofran for any associated nausea if pain is increased after eating, try taking Tums or Maalox, if that does not help then take Ultram 50mg stay active, continue to try to stretch muscles gently use Dulcolax twice a day until you move bowels RUQ ultrasound was normal, HIDA scan was normal, no evidence of gall bladder disease CT of the abdomen/pelvis has been normal except you have a stable abdominal aneurysm no evidence of pancreatitis doubt ulcer since your hemoglobin has been stable, never had evidence of melena (dark stools) Nicotine use: use patches for 14 days Caffeine: okay to drink one cup of caffeinated coffee and one Pepsi in the afternoon, avoid excessive caffeine intake Pending Studies at Discharge: No Stand-Alone Forms: My [facility] [employer], Smoking Cessation Medications and DC Order Prescriptions: New aspirin 81 mg Tablet,Delayed Release (Dr/Ec) 81 mg PO DAILY 30 Days Qty: 30 RF: 3 famotidine 20 mg Tablet 20 mg PO BID 30 Days Qty: 60 RF: 1 nicotine 7 mg/24 hr Patch 24 Hour 14 mg transdermal QAM 14 Days Qty: 14 RF: 0 ondansetron 4 mg tablet,disintegrating 4 mg PO Q8 PRN (Reason: nausea and vomiting) 7 Days Qty: 10 RF: 0 tramadol 50 mg tablet 50 mg PO Q8H PRN (Reason: pain) Qty: 10 RF: 0 Continued atorvastatin 40 mg Tablet 40 mg PO QAM Qty: 30 RF: 0 metoprolol tartrate 25 mg Tablet 12.5 mg PO BID Qty: 30 RF: 0 clopidogrel [Plavix] 75 mg tablet 75 mg PO DAILY Qty: 30 RF: 0 Discontinued famotidine 20 mg Tablet 20 mg PO QAM Qty: 30 RF: 0 aspirin 325 mg tablet 325 mg PO DAILY Qty: 30 RF: 0 Discharge Orders: Discharge Order (Routine); Ordered 01/05/20 Ordered By: Ray Calderon Admission Data Admit Date/Time: 01/03/20 06:20 Attending Provider: Ray Calderon Admit Provider: Johann Olea Primary Care Provider: Judy Reyna Other Providers: Johann Olea ; Zen Pedro Other Interventions: Discharge Summary Assessment (RN) Last Done: 01/05/20 15:07 DC Date/Time DO NOT enter until pt leaves facility: 01/05/20 16:08 Coding Level of Care Code D/C Day Management >30 mins Diagnoses Unstable angina I20.0 Epigastric pain R10.13 CAD (coronary artery disease) I25.10 HTN (hypertension) I10 Non-ST elevation myocardial infarction (NSTEMI) I21.4 Post-infarction pericarditis I24.1 Abdominal aortic aneurysm I71.4 Presence of rupture: without rupture COPD (chronic obstructive pulmonary disease) J44.9 Tobacco use Z72.0 Hyperlipidemia LDL goal <70 E78.5
== END 2020-01-05 16:08 | disposition home or self-care (01) | DRG 246 ==
LOC: ED 03:35 → SUATTDRO 06:20 → 2S 06:20

== ENCOUNTER 2020-07-09 08:47 | Inpatient (IN) ==
--- NOTE | 2020-06-19 08:57 | PAT Medication Instructions ---
Medication Instructions Date of Service June 19, 2020 Home Medications Medication Instructions Recorded atorvastatin 40 mg tablet 40 mg PO QAM #90 tab 01/18/20 metoprolol tartrate 25 mg tablet 12.5 mg PO BID #45 tab 01/18/20 tramadol 50 mg tablet 50 mg PO Q8H PRN #40 tab 02/28/20 hydrocodone 5 mg-acetaminophen 325 1 tab PO Q6H PRN #25 tab 03/07/ mg tablet atorvastatin 40 mg tablet 40 mg PO QAM metoprolol tartrate 25 mg tablet 12.5 mg PO BID tramadol 50 mg tablet 50 mg PO Q8H PRN hydrocodone 5 mg-acetaminophen 325 mg tablet 1 tab PO Q6H PRN acetaminophen 500 mg tablet 1,000 mg PO Q8H PRN clopidogrel [Plavix] 75 mg PO QAM triamterene-hydrochlorothiazid 1 tab PO QAM aspirin 81 mg PO QAM ASK your prescriber and surgeon clopidogrel [Plavix] 75 mg PO QAM DO NOT take the morning of surgery triamterene-hydrochlorothiazid 1 tab PO QAM Take morning of surgery With a small sip of water, OTHERWISE NOTHING TO EAT OR DRINK AFTER MIDNIGHT: atorvastatin 40 mg tablet 40 mg PO QAM metoprolol tartrate 25 mg tablet 12.5 mg PO BID tramadol 50 mg tablet 50 mg PO Q8H PRN (if needed, may be taken up to four hours before surgery) hydrocodone 5 mg-acetaminophen 325 mg tablet 1 tab PO Q6H PRN (if needed, may be taken up to four hours before surgery) acetaminophen 500 mg tablet 1,000 mg PO Q8H PRN (if needed, may be taken up to four hours before surgery) aspirin 81 mg PO QAM Take evening before surgery metoprolol tartrate 25 mg tablet 12.5 mg PO BID tramadol 50 mg tablet 50 mg PO Q8H PRN (if needed) hydrocodone 5 mg-acetaminophen 325 mg tablet 1 tab PO Q6H PRN (if needed) acetaminophen 500 mg tablet 1,000 mg PO Q8H PRN (if needed) Other Notes If you have any questions please call us at [phone] or [phone] or [phone] or [phone]
--- NOTE | 2020-06-20 09:56 | Anesthesiology Consultation ---
Date of Service June 20, 2020 Assessment & Plan (1) Encounter for pre-operative examination: COVID Status: As of 06/20 assessment, patient denies travel to endemic area, known exposure/sick contacts, or symptoms of COVID19. Patient instructed that they and their household members must follow strict social distancing guidelines, wear a mask in public and avoid travel for 14 days prior to surgery. Preoperative COVID19 testing to be completed prior to surgery per surgeon's arr angements. Patient made aware to self-isolate as much as possible between COVID testing and surgery. Cardiology ([facility] [place] 03/16/20 = "She is doing well, no evidence of ongoing my ocardial ischemia, congestive heart failure, or dysrhythmia. Important that she continue her clopidogrel for 6 months, since she hopes to have shoulder surgery would discontinue the clopidogrel in mid June and plan for her surgery late June." Case reviewed with Dr. Foy. Due to partially thrombosed AAA with outpatient follow-up recommended by cardio and not yet completed, will need vascular clearance prior to surgery. Patient reports she is scheduled to see [facility] in [facility]. Surgeon's office made aware. Chart Review Chart Review: Acceptable Risk for Surgery (pending cardio clearance 07/06, vascular clearance TBA) and Patient seen in Pre Admission Testing Teaching & Discussion Instructed NPO after midnight before surgery, except medications with 15 cc of water. Medication instructions provided according to the PAT guidelines. History Surgery Operation Date: 07/09/20 09:20 Proposed Procedures p Right Reverse Total Shoulder Arthroplasty - Primitivo Rivas, Height/Weight Height: 5 ft 6 in Weight: 65.9 kg Allergies Allergy/AdvReac Type Severity Reaction Status Date / Time No Known Allergies Allergy Mild Verified 06/11/20 11:20 Medications Home Medications Medication Instructions Recorded Confirmed Last Taken atorvastatin 40 mg tablet 40 mg PO QAM #90 tab 01/18/20 06/11/20 03/21/20 metoprolol tartrate 25 mg tablet 12.5 mg PO BID #45 tab 01/18/20 06/11/20 03/21/20 tramadol 50 mg tablet 50 mg PO Q8H PRN #40 tab 02/28/20 06/11/20 03/20/20 15:00 100 mg hydrocodone 5 mg-acetaminophen 325 1 tab PO Q6H PRN #25 tab 03/07/20 06/11/20 03/14/20 mg tablet acetaminophen 500 mg tablet 1,000 mg PO Q8H PRN tab 03/16/20 06/11/20 03/21/20 06:30 1000 mg clopidogrel [Plavix] 75 mg PO QAM 03/21/20 06/11/20 03/21/20 triamterene-hydrochlorothiazid 1 tab PO QAM 03/21/20 06/11/20 03/21/20 aspirin 81 mg PO QAM 06/11/20 06/11/20 Unknown Past Medical History Medical History (Updated 06/20/20 @ 15:51 by Kiel Heard) Abdominal aortic aneurysm Partially thrombosed 3.9 cm. Per cardiology consult 12/29/19 "No evidence of leakage or impending rupture from her abdominal aortic aneurysm. At this point, this seems to be an incidental finding, will need serial monitoring as an outpatient to determine whether future intervention will be necessary." To see [facility] 08/2020. CAD (coronary artery disease) COPD (chronic obstructive pulmonary disease) no inhalers HTN (hypertension) Hyperlipidemia LDL goal <70 Lateral myocardial infarction (12/28/19) DECEMBER 2019 > 3 STENTS PLACED @ [facility] > (DRUG ELUTING PER ABOVE RECORD) Nausea and vomiting after administration of anesthetic agent Exercise / Class Metabolic Activity II 4-5 Yardwork/Stairs/Walk up hill (Mild CACERES with 1 FOS, does 14 steps daily at home, denies any chest pain) Past Family History Family History (Updated 06/13/20 @ 13:29 by Tomasa Bello RN) Father Alcohol abuse Hepatic cirrhosis Mother Alzheimer disease Other No family history of adverse response to anesthesia Past Surgical History Surgical History History of bilateral tubal ligation History of cardiac cath x2--12/28/2019 (no stents placed then) and 01/03/2020 (3 CHEN placed) History of colonoscopy with polypectomy History of dilatation and curettage History of tooth extraction History of total hysterectomy with bilateral salpingo-oophorectomy (BSO) History of wisdom tooth extraction S/P drug eluting coronary stent placement (01/03/20) Ramus Intermedius 3 CHEN placed on 01/03/2020 @ [facility] Past Anesthesia History No Hx of Anesthesia Complications (other than PONV) and No Family Hx of Anesthesia Complications History of PONV History of PONV and Hx of Motion Sickness Social History Smoking Status: Former smoker tobacco type: cigarettes Smoking cigarettes per day: 5 Do You Dip or Chew Tobacco: No Smoking End Date: quit 12/28/2019 Hx Alcohol Use: Yes Alcohol type: hard liquor alcohol intake frequency: a few times a week Alcohol Intake Frequency Comment: 1-2 drinks a week Hx Substance Use: No substance use type: does not use Review of Systems Pt denies any recent chest pain, shortness of breath, palpitations, cough, fever, URI, or uncontrolled acid reflux. Physical Exam Vital Signs BP: 118/73 P: 55bpm SPO2: 98% RA T: 98.1 F R: 16 ENMT Mouth: + dental bridge (3 total) and + dental restorations (bridges, implants); no chipped teeth and no loose teeth Thyromental Distance: > or= 3.5 Finger Breadths Mallampati Class: II Neck normal visual inspection; neck extension not limited Respiratory normal respiratory effort Auscultation: lungs clear to auscultation bilaterally Cardiovascular Rate/Rhythm: regular rate and regular rhythm Heart Sounds: no murmur Vessels: no carotid bruit Extremities: no edema Testing Laboratory Results 06/20/20 10:14 06/20/20 10:11 PT 10.3 Seconds (9.0-12.0) 06/20/20 10:14 INR 1.0 (0.9-1.1) 06/20/20 10:14 APTT 23.6 Seconds (21.0-31.0) 06/20/20 10:14 Blood Type A Positive 06/20/20 10:14 Antibody Screen NEGATIVE 06/20/20 10:14 Electrocardiogram Date: 03/21/20 Normal sinus rhythm at 64 bpm possible left atrial enlargement. Nonspecific ST abnormality. Compared with EKG of 01/05/2020 T wave inversion no longer evident in lateral leads. Chest X-Ray Date: 03/21/20 Findings: + NAD Echocardiogram Date: 12/29/19 EF: 50-55% The left ventricle is normal in size. There is normal LV wall thickness. LV systolic function is normal. Moderate to severe hypokinesis of the mid to distal lateral and anterolateral hilliard, mild hypokinesis of the distal anterior wall. All other hilliard move normally. There is mild mitral regurgitation. Left atrial size is normal. Pulse-wave Doppler is not performed. Cardiac Catheterization Date: 01/03/20 Summary: 1. Severe multi vessel coronary artery disease -70 to 80% proximal to mid LAD stenosis. 80% ostial first diagonal stenosis 100% acute on chronic proximal ramus occlusion 2. Successful PCI of proximal to mid LAD with single drug-eluting stent (4.0 x 26 mm B[place]ie). 3. Successful PCI of proximal to mid ramus occlusion with 2 overlapping drug- eluting stents (2.5 x 26, 2.5 x 15 mm Josue). Other Testing Abdominal US 01/04/20 IMPRESSION: No significant abnormality identified. Slight prominence of the extra hepatic common bile duct at 8 mm. Partially thrombosed 3.9 cm mid abdominal aortic aneurysm.
[2020-06-20 10:30] LABS: Basophils # (auto) 0.03 K/uL (0-0.2); Basophils % (auto) 0.3 %; Eosinophils # (auto) 0.14 K/uL (0-0.5); Eosinophils % (auto) 1.4 %; Hemoglobin 13.4 g/dL (12.0-16.0); Immature Granulocytes # (auto) 0.06 K/uL (0.00-0.02); Immature Granulocytes % (auto) 0.6 %; Lymphocytes # (auto) 2.31 K/uL (1.2-3.4); Lymphocytes % (auto) 22.4 %; Mean Corpuscular Hemoglobin 32.6 pg (25-34); Mean Corpuscular Hgb Conc 34.4 g/dL (32-36); Mean Corpuscular Volume 94.9 fL (80-100); Mean Platelet Volume 9.5 fL (7.4-10.4); Monocytes # (auto) 0.94 K/uL (0.11-0.59); Monocytes % (auto) 9.1 %; Neutrophils # (auto) 6.84 K/uL (1.4-6.5); Neutrophils % (auto) 66.2 %; Platelet Count 245 K/uL (130-400); RDW Standard Deviation 45.1 fL (36.4-46.3); Red Blood Count 4.11 M/uL (4.2-5.4); White Blood Count 10.32 K/uL (4.8-10.8)
[2020-06-20 10:40] LABS: Partial Thromboplastin Ratio 0.8; Partial Thromboplastin Time 23.6 Seconds (21.0-31.0); Prothrombin Time 10.3 Seconds (9.0-12.0)
[2020-06-20 11:20] LABS: BUN Creatinine Ratio 24.5 (10-20); Calcium 9.3 mg/dl (8.5-10.1); Creatinine Clr Calc Pharmacy 70.9 ml/min; Est GFR (African American) 97.6; Est GFR (Non-African American) 84.2
--- NOTE | 2020-07-05 12:17 | History & Physical Report ---
Date of Service July 05, 2020 Assessment & Plan (1) Rotator cuff arthropathy of right shoulder: We will proceed with a right reverse shoulder arthroplasty. Postoperatively she will be placed back on her Plavix and we will keep her overnight in the hospital for postoperative medical management. She plans to use [facility] upon discharge. Present on Admission?: Yes History of Present Illness Chief Complaint: Rotator cuff arthropathy of the right shoulder Primary Care Provider: Judy Reyna MD Keri is a pleasant 65-year-old female who is been dealing with a several year history of increasing right shoulder pain. X-rays show some mild arthritis but do not look too bad. MRI of the shoulder in 2018 shows a large retracted rotator cuff tear. I have been giving her serial injections. Unfortunate she continues to have pain. Her shoulder hurts all the time. After failing conservative treatment, she has elected to proceed with a right reverse shoulder arthroplasty. Allergies Allergy/AdvReac Type Severity Reaction Status Date / Time No Known Allergies Allergy Mild Verified 06/11/20 11:20 Home Medications Home Medications Medication Instructions Recorded Confirmed Type atorvastatin 40 mg tablet 40 mg PO QAM #90 tab 01/18/20 06/11/20 Rx metoprolol tartrate 25 mg tablet 12.5 mg PO BID #45 tab 01/18/20 06/11/20 Rx tramadol 50 mg tablet 50 mg PO Q8H PRN #40 tab 02/28/20 06/11/20 Rx hydrocodone 5 mg-acetaminophen 325 1 tab PO Q6H PRN #25 tab 03/07/20 06/11/20 Rx mg tablet acetaminophen 500 mg tablet 1,000 mg PO Q8H PRN tab 03/16/20 06/11/20 History clopidogrel [Plavix] 75 mg PO QAM 03/21/20 06/11/20 History triamterene-hydrochlorothiazid 1 tab PO QAM 03/21/20 06/11/20 History aspirin 81 mg PO QAM 06/11/20 06/11/20 History Past Med/Surg History Medical History Abdominal aortic aneurysm Partially thrombosed 3.9 cm. Per cardiology consult 12/29/19 "No evidence of leakage or impending rupture from her abdominal aortic aneurysm. At this point, this seems to be an incidental finding, will need serial monitoring as an outpatient to determine whether future intervention will be necessary." To see Marck 08/2020. CAD (coronary artery disease) COPD (chronic obstructive pulmonary disease) no inhalers HTN (hypertension) Hyperlipidemia LDL goal <70 Lateral myocardial infarction (12/28/19) DECEMBER 2019 > 3 STENTS PLACED @ [facility] > (DRUG ELUTING PER ABOVE RECORD) Nausea and vomiting after administration of anesthetic agent Surgical History History of bilateral tubal ligation History of cardiac cath x2--12/28/2019 (no stents placed then) and 01/03/2020 (3 CHEN placed) History of colonoscopy with polypectomy History of dilatation and curettage History of tooth extraction History of total hysterectomy with bilateral salpingo-oophorectomy (BSO) History of wisdom tooth extraction S/P drug eluting coronary stent placement (01/03/20) Ramus Intermedius 3 CHEN placed on 01/03/2020 @ [facility] Family History Father Alcohol abuse Hepatic cirrhosis Mother Alzheimer disease Other No family history of adverse response to anesthesia Social History Smoking Status: Former smoker Tobacco Type: Cigarettes Cigarettes Per Day: 5; Second Hand Exposure: Yes (grandfather smoked); Hx Alcohol Use: Yes Alcohol type: hard liquor Hx Substance Use: No Preferred Language: Yi Communication Ability: Effective Herpetology Teacher Required: No Beliefs That Will Affect Care: None marital status: Current Living Situation: Spouse Feels Safe at Home: Yes Dental Care, Regularly: Yes Review of Systems Review of Systems: All systems reviewed & are unremarkable except as noted in HPI & below Physical Exam Constitutional: WD/WN, vitals as above Eyes: PERRL, conjunctivae normal, anicteric sclerae ENMT: external ear and nose normal, oropharynx normal Neck: trachea midline, no thyromegaly Respiratory: normal respiratory effort Cardiovascular: RRR, no murmur, no edema Gastrointestinal (Abdomen): normal bowel sounds, soft, nontender, no hepatosplenomegaly Musculoskeletal: Physical examination of the right shoulder reveals decreased range of motion and significant weakness. There is tenderness palpation along the anterior glenohumeral joint line. The right upper extremity is neurovascularly intact. Psychiatric: A+Ox3, euthymic affect Results & Data Results & Data ([facility]) Diagnostic Findings Radiographs of the right shoulder show some signs of osteoarthritis with blunting of the greater tuberosity and some superior migration of the humeral head on the glenoid. PG Care Time/CCT Total # of Minutes Spent Total Time Spent with Patient: Total time spent is greater than 50% in coordination of care (as documented) at patient's floor/unit and/or counseling patient: Coding Level of Care Code 23543 Initial Inpt Care Lvl 2 Diagnoses Rotator cuff arthropathy of right shoulder M12.811
[~2020-07-09 08:47] MED LIST changes: +ACETAMINOPHEN 500 MG TAB PO SCH; -AZITTAB PO; +BUPIVACAINE 0.5 % 5 MG/1 ML PF 10ML VIAL ONE; +CEFAZOLIN 1000MG 1,000 MG/7.5 ML SYR IV SCH; +FAMOTIDINE 20 MG TAB PO SCH; +GABAPENTIN 600 MG DOSE PO SCH; -HYDC25 PO; +LR 15ML/HR IV SCH; +LR 60ML/HR IV SCH; +ROPIVACAINE 0.5% HCL/PF 150 MG, BUPIVACAINE 0.5% MPF 30 ML, EPINEPHrine 30MG/30ML (OR U... INFIL SCH; +TRANEXAMIC ACID 1,000 MG **IV Intra-op IV SCH; +TRANEXAMIC ACID 1,000 MG **IV Pre-op IV SCH; +dexAMETHasone 4 MG TAB PO SCH
--- NOTE | 2020-07-09 08:55 | History & Physical Bridge Note ---
Date of Service July 09, 2020 History & Physical Bridge Note I have examined the patient, reviewed the History & Physical and in the interval since the performance of the History & Physical I have noted the following changes of clinical significance: no changes noted
[2020-07-09] MEDS ORDERED: ONDANSETRON INJ 2 MG/ML 2 ML VIAL IV PRN ×2 (10:37→14:10)
[2020-07-09] MEDS ORDERED: ATROPINE SULFATE 0.1 MG/ML 10ML SYR IV PRN (10:37)
[2020-07-09] MEDS ORDERED: fentaNYL citrate 100 MCG/2 ML VIAL IV PRN (10:37)
[2020-07-09] MEDS ORDERED: ePHEDrine sulfate 50 MG/ML AMP IV PRN (10:37)
[2020-07-09] MEDS ORDERED: SUCCINYLCHOLINE CHLORIDE 20 MG/ML 10 ML VIAL IV ONE (10:57)
[2020-07-09] MEDS ORDERED: fentaNYL citrate 100 MCG/2 ML VIAL ONE (10:57)
[2020-07-09] MEDS ORDERED: ROCURONIUM BROMIDE 10 MG/ML 5 ML VIAL IV ONE (10:57)
[2020-07-09] MEDS ORDERED: MIDAZOLAM HCL 1 MG/ML 2ML VIAL ONE (10:57)
[2020-07-09] MEDS ORDERED: LIDOCAINE HCL 2% 2 ML VIAL/AMP(20MG/ML) INFIL ONE (10:57)
[2020-07-09] MEDS ORDERED: ONDANSETRON INJ 2 MG/ML 2 ML VIAL ONE (10:57)
[2020-07-09] MEDS ORDERED: PROPOFOL IV EMULSION 10 MG/ML 20 ML VIAL IV ONE (10:57)
[2020-07-09] MEDS ORDERED: ORTHO JOINT ANESTHETIC ONE (11:13)
[2020-07-09] MEDS ORDERED: ePHEDrine sulfate 50 MG/ML SYR ONE (12:10)
--- NOTE | 2020-07-09 12:51 | Operative Report ---
PG Post Operative Report Pre & Post Diagnosis Operation Date: 07/09/20 10:55 Pre-Op Diagnosis: Rotator cuff arthropathy of right shoulder Post-Op Diagnosis: Rotator cuff arthropathy of right shoulder I identified the patient and participated in the time-out.: Yes Procedure Operation Date: 07/09/20 10:55 Actual Procedures p Right Reverse Total Shoulder Arthroplasty(Right) - Primitivo Rivas DO Surgeon Primitivo Rivas, Denitrator Operator Primitivo Love PAC Estimated Blood Loss 150 Findings Consistent with Post-Op Diagnosis Specimens Right humeral head Complications none Disposition Disposition: Recovery Room Indications Keri is a pleasant 65-year-old female who has been dealing with chronic right shoulder pain and weakness. MRI showed a massive chronic retracted rotator cuff tear. After failing conservative treatment, she elected to proceed with a right reverse shoulder arthroplasty. Description of Procedure A CPT code modifier 59: The long head of the biceps tendon was enlarged and inf lamed consistent with tendinopathy. A tenodesis was opted. This was a separate and distinct portion of the procedure. For these reasons, a CPT code modifier 59 will be added to this case. Implants used: I used a Biomet Comprehensive reverse total shoulder arthroplasty system with a size 10 press fit micro humeral stem, a +6 humeral tray and a standard humeral bearing, a 25 mm small augment baseplate with a 6.5 mm central screw and superior and inferior locking screws, and a size 40 mm eccentric glenosphere. Keri arrived at [facility] for the above procedure. She was seen in the preoperative holding area and the operative extremity was identified and signed. She was given a preoperative antibiotic, TXA, and an interscalene nerve block. She was taken back to the operating room, laid on table in supine position, and put under general anesthesia. She was then put into the beachchair position. The shoulder was then prepped and draped in sterile fashion. A timeout was done and the patient and the operative extremity was properly identified. A deltopectoral approach was used. Dissection was taken down through the fascia and the deltoid was retracted laterally and the conjoined tendon was retracted medially. The anterior shoulder was exposed. The biceps tendon was missing from a traumatic tenotomy. The subscapularis was then directly released off the lesser tuberosity with a peel technique. The inferior capsule was released and the humeral head was dislocated. A canal finding reamer was sent down the center of the humeral canal. Sequential reaming up to a size 10 reamer was done. Off that reamer, a proximal humeral resection guide was placed. The proximal humerus was resected at 135 of inclination and 25 of retroversion. Osteophytes were then removed and the glenoid was exposed. Time was spent doing a complete capsular and labral release. The glenoid guide was then placed in the inferior aspect of the glenoid. A 3.2 mm Steinmann pin was then placed into the glenoid vault at 10 of inclination. The glenoid baseplate was then reamed. The final size 25 mm small baseplate was then impacted in the place. A 6.5 mm central screw was then placed followed by superior and inferior locking screws. A 40 mm eccentric glenosphere was then impacted into place. Surrounding soft tissues were then injected with 100 cc an orthopedic pain control cocktail. The proximal humerus was then exposed. Sequential broaching of the humerus up to a size 10 broach was done. Off that broach a +6 humeral tray was trialed. The shoulder was then reduced, brought through a full range of motion, and felt to be stable. The shoulder was then dislocated and the broach was removed. The final size 10 micro press-fit deena l stem was then impacted into place. A standard humeral bearing was then snapped onto a +6 humeral tray. The humeral tray was then impacted onto the humeral stem. The shoulder was once again reduced, brought through a full range of motion, and felt to be stable. The subscapularis was then tenodesed back to the lesser tuberosity with transosseous FiberWire sutures and side to side sutures with the arm in 45 of external rotation. A dilute betadyne lavage was then done for 3 minutes. The joint was then irrigated with normal saline solution. Hemostasis was obtained. The interval was closed with 2-0 Vicryl suture. The skin was then closed with 2-0 Vicryl and susanne. A Silverlon dressing was placed and the arm was rested in a regular arm sling. She was then extubated and transferred to a hospital bed. She taken to the postanesthesia care unit in stable condition. She tolerated the procedure well. Primitivo Love PA-C, was present for the entire procedure. He was critical for rey ent positioning, prepping, draping, retraction exposure, wound closure and application of sterile dressing. I attest to the content of the Intraoperative Record and any orders documented therein. Any exceptions are noted below.
--- NOTE | 2020-07-09 13:41 | XRay Report ---
XR shoulder RT min 2V routine CLINICAL HISTORY: Post shoulder surgery COMPARISON: 05/31/2018 DISCUSSION: There are postsurgical changes of a reverse total right shoulder arthroplasty. There is n o dislocation. There are overlying skin susanne. There is gas present within the soft tissues consist ent with recent surgery. IMPRESSION: Postsurgical changes of a reverse total shoulder arthroplasty ACT 112: Negative or not required by law. Electronically signed by: Miguel Ángel Naik M.D. 07/09/2020 1:39 PM
--- NOTE | 2020-07-09 13:44 | Anesthesiology Progress Note ---
Date of Service July 09, 2020 Anesthesia Post Procedure Vital Signs Vital Signs: Temp Pulse Pulse Resp BP Pulse Ox 07/09/20 13:40 75 20 112/69 98 07/09/20 13:30 81 19 124/62 97 07/09/20 13:20 99 H 17 110/66 100 07/09/20 13:13 97.7 F 84 18 124/69 98 07/09/20 09:54 56 L 16 130/71 100 07/09/20 09:24 97.9 F 62 16 124/74 97 Pain Intensity Right Shoulder: Pain Intensity: 0 Transfer of Care Handoff Completed per policy Notes Mental Status: alert / awake / arousable and participated in evaluation Patient Amnestic to Procedure: Yes Nausea / Vomiting: adequately controlled Pain: adequately controlled Airway Patency, RR, SpO2: stable & adequate BP & HR: stable & adequate Hydration State: stable & adequate Anesthetic Complications: no major complications apparent and Pt Satisfied with anesthetic care
[2020-07-09] MEDS ORDERED: HYDROmorphone INJ 0.5 MG/0.5 ML SYR IV PRN (14:10)
[2020-07-09] MEDS ORDERED: MAGNESIUM HYDROXIDE SUSP 30 ML UDC PO PRN (14:10)
[2020-07-09] MEDS ORDERED: NALOXONE HCL 0.4 MG/1 ML VIAL/CARP IV PRN (14:10)
[2020-07-09] MEDS ORDERED: METOCLOPRAMIDE HCL INJ 5 MG/ML 2 ML VIAL IV PRN (14:10)
[2020-07-09] MEDS ORDERED: bisacodyL 10 MG SUPP PR PRN (14:10)
[2020-07-09] MEDS: SODIUM CHLORIDE 0.9% 1000ML 1,000 ML IV SCH ×2 (14:26→19:44)
[2020-07-09] MEDS: KETOROLAC 30 MG/ML VIAL IV SCH ×2 (15:45→21:37)
[2020-07-09] MEDS: ACETAMINOPHEN 500 MG TAB PO SCH ×2 (15:46→21:36)
[2020-07-09] MEDS: CEFAZOLIN 2000MG 2,000 MG/15 ML SYR IV SCH (19:20)
[2020-07-09] MEDS ORDERED: SENNA 8.6 MG TAB PO SCH (21:00)
[2020-07-09] MEDS: DOCUSATE SODIUM 100 MG CAP PO SCH (21:35)
[2020-07-09] MEDS: METOPROLOL TARTRATE 25 MG TAB PO SCH (21:35)
[2020-07-10] MEDS: KETOROLAC 30 MG/ML VIAL IV SCH ×2 (03:21→08:18)
[2020-07-10] MEDS: CEFAZOLIN 2000MG 2,000 MG/15 ML SYR IV SCH (03:22)
[2020-07-10] MEDS: OXYCODONE HCL IR 5 MG TAB (IMMEDIATE RELEASE) PO PRN ×2 (03:29→09:20)
[2020-07-10] MEDS: ACETAMINOPHEN 500 MG TAB PO SCH ×2 (06:23→13:31)
[2020-07-10 06:28] LABS: Basophils # (auto) 0.01 K/uL (0-0.2); Eosinophils # (auto) 0.01 K/uL (0-0.5); Hematocrit (blood only) 36.2 % (37-47); Hemoglobin 12.2 g/dL (12.0-16.0); Immature Granulocytes # (auto) 0.06 K/uL (0.00-0.02); Immature Granulocytes % (auto) 0.3 %; Lymphocytes # (auto) 1.47 K/uL (1.2-3.4); Lymphocytes % (auto) 6.8 %; Mean Corpuscular Hemoglobin 32.6 pg (25-34); Mean Corpuscular Hgb Conc 33.7 g/dL (32-36); Mean Corpuscular Volume 96.8 fL (80-100); Mean Platelet Volume 9.9 fL (7.4-10.4); Monocytes # (auto) 1.13 K/uL (0.11-0.59); Monocytes % (auto) 5.2 %; Neutrophils % (auto) 87.7 %; Platelet Count 284 K/uL (130-400); RDW Coefficient of Variation 12.9 % (11.5-14.5); RDW Standard Deviation 45.8 fL (36.4-46.3); Red Blood Count 3.74 M/uL (4.2-5.4); White Blood Count 21.68 K/uL (4.8-10.8)
--- NOTE | 2020-07-10 06:54 | Orthopedic Progress Note ---
Date of Service July 10, 2020 Assessment & Plan (1) Status post reverse arthroplasty of right shoulder: Overall she is doing very well. She is not having much pain in the right shoulder. She will be seen by physical therapy today for ambulation and range of motion exercises. She can be discharged home later today. She will follow- up with orthopedics in 2 weeks. Present on Admission?: Yes Admission and Anticipated Discharge Date Admission Date: July 09, 2020 Donald Saavedra was seen and examined at bedside this morning. Overall she is doing very well. She is not having much pain in the right shoulder. She was able to get some sleep last night. She has no complaints. Physical Exam Musculoskeletal: On physical examination of the right shoulder, the dressing is clean and dry. She is wearing her sling as instructed. Her radial, median, and ulnar nerves are checked and intact at her wrist. Results & Data ([facility]) Vital Signs (Past 12 Hours) Vital Signs Temp Pulse Resp BP Pulse Ox 07/10/20 03:44 36.4 C L 58 L 16 143/83 H 94 07/09/20 23:11 36.5 C 56 L 18 124/76 97 07/09/20 21:33 68 111/71 96 Laboratory Results H & H 06/20/20 07/10/20 Range/Units 10:14 05:43 Hgb 13.4 12.2 (12.0-16.0) g/dL Hct 39.0 36.2 L (37-47) % Coagulation 06/20/20 Range/Units 10:14 INR 1.0 (0.9-1.1) Diagnostic Findings Postoperative x-rays of the right shoulder show the prosthesis to be in anatomic alignment without any evidence of fracture, dislocation, or loosening. PG Care Time/CCT Total # of Minutes Spent Total Time Spent with Patient: Total time spent is greater than 50% in coordination of care (as documented) at patient's floor/unit and/or counseling patient: Coding Level of Care Code None Diagnoses Status post reverse arthroplasty of right shoulder Z96.611
--- NOTE | 2020-07-10 06:55 | Discharge Summary ---
Date of Service July 10, 2020 Admission HPI Per Admitting Provider Keri is a pleasant 65-year-old female who is been dealing with a several year history of increasing right shoulder pain. X-rays show some mild arthritis but do not look too bad. MRI of the shoulder in 2018 shows a large retracted rotator cuff tear. I have been giving her serial injections. Unfortunate she continues to have pain. Her shoulder hurts all the time. After failing conservative treatment, she has elected to proceed with a right reverse shoulder arthroplasty. Principal Diagnosis Right shoulder replacement Discharge Data Allergies Allergy/AdvReac Type Severity Reaction Status Date / Time No Known Allergies Allergy Mild Verified 07/09/20 09:16 Consultations 07/09/20 14:10 Consult Case Management - Discharge Planning Routine Procedures Performed Operation Date: 07/09/20 10:55 Actual Procedures p Right Reverse Total Shoulder Arthroplasty(Right) - Primitivo Rivas DO Ordered Studies 07/09/20 11:24 US - OR guided needle placemen Routine Hospital Course (1) Status post reverse arthroplasty of right shoulder: On July 09, 2020 Keri arrived at [facility] and underwent a right shoulder replacement without complication. She had a general anesthetic and a right interscalene nerve block. Postoperatively she was placed in a sling and transferred to the general orthopedic floors. Her hospital course was uneventful. On postop day #1 her H&H was stable and her pain was well controlled. She was able to participate well with physical therapy doing ambulation and range of motion exercises. She was then discharged to home. She will follow-up with orthopedics in 2 weeks. Total Time Total Time Spent Total Time Spent (In Minutes): 20 Discharge Plan Discharge Items Patient Disposition: Home - Home Health Services Reason For Visit: DJD Right Shoulder Discharge Diagnosis: Right reverse shoulder replacement Activity: As commented below Non-emergency contact: Surgeon Call non-emergency contact if: your wound has increased redness and your wound has increased drainage Follow-up/Referrals: Judy Reyna MD [Primary Care Provider] - Diet: Regular Addtl Attending Provider Instructions: Activity and Therapy Recommendations: * If you are using [facility] then therapy will be provided at your home until they feel you have accomplished all of your goals. * If you are using [facility] then Physical Therapy will be provided until they feel you are ready to start Outpatient Physical Therapy. * If you are not using home therapy then Outpatient Physical Therapy should start about 3-5 days from your day of surgery. Therapy will last about 8-12 weeks * Wear your sling for 3 weeks, unless otherwise instructed. You may remove your sling to shower and to dress, but otherwise, you should be in your sling at all times, including while sleeping * The shoulder replacement is very stable and you can use your hand while in the sling * You were shown a series of exercises in the hospital. Do these exercises daily including the exercises you were shown in physical therapy. Medications: * Narcotic You will likely be sent home from the hospital with a prescription for the narcotic pain medication that worked best throughout your stay. * Other medications may be prescribed for specific circumstances. If you have any questions, please call the office at . * Resume previous home medications unless otherwise instructed Dressing Care: Leave the Silverlon dressing in place for 7 days. After 7 days you may remove the dressing. If the incision is not draining then you may leave the susanne open to air. If there is a little bit of drainage or if the susanne are getting stuck on your clothing then cover the incision with a dry dressing. The susanne will be removed at your 2 week follow-up appointment. Showering: You may shower with the Silverlon dressing in place. Do not let the shower spray hit the dressing directly. Pat the Silverlon dressing dry. If the dressing becomes wet underneath, then simply remove the dressing. Keep the incision dry until you are 7 days out from the day of surgery. After 7 days you may remove the Silverlon dressing and shower with the susanne exposed. Let soapy water run over the susanne and pat them dry. Do not scrub or soak the incision. Things To Watch For: * Drainage from the incision site that occurs more than one week after your surgery. * Increased redness at the incision site. * Fever above 102 degrees Fahrenheit. * Unusual chest pain or shortness of breath. * Call [facility] at with any of the above problems Follow-Up Visit: Follow-up with Dr. Rivas's PA (Primitivo Love) 2-3 weeks after your day of surgery. He will remove your susanne and answer any questions. If you have any additional questions or concerns, Dr Rivas is usually in the office at the same time and will be available An appointment was probably scheduled when you signed-up for surgery in the office. If you have any questions call More detailed instructions as well as Frequently Asked Questions were provided in a folder by our office when you signed-up for surgery. Please review these instructions when you get home. If you have any further questions or concerns, please feel free to call the office at [phone] Pending Studies at Discharge: No Stand-Alone Forms: My [facility] Cardback, Smoking Cessation Medications and DC Order Prescriptions: New oxycodone 5 mg Tablet 5 mg PO Q4H PRN (Reason: pain) Qty: 30 RF: 0 Continued metoprolol tartrate 25 mg tablet 12.5 mg PO BID Qty: 45 RF: 3 atorvastatin 40 mg tablet 40 mg PO QAM Qty: 90 RF: 3 acetaminophen [Tylenol Extra Strength] 500 mg tablet 1,000 mg PO Q8H PRN (Reason: Pain) RF: 0 clopidogrel [Plavix] 75 mg tablet 75 mg PO QAM Qty: 90 RF: 3 triamterene-hydrochlorothiazid 37.5-25 mg tablet 1 tab PO QAM Qty: 90 RF: 3 aspirin 81 mg tablet,delayed release (DR/EC) 81 mg PO QAM RF: 0 Emergen-C 1,000 mg Powder Effervescent In Packet 1 ea PO DAILY RF: 0 Discontinued hydrocodone-acetaminophen 5-325 mg tablet 1 tab PO Q6H PRN (Reason: pain) Qty: 25 RF: 0 Discharge Orders: Discharge Order (Routine); Ordered 07/10/20 Ordered By: Primitivo Rivas Admission Data Admit Date/Time: 07/09/20 13:16 Attending Provider: Primitivo Rivas Admit Provider: Primitivo Rivas Primary Care Provider: Judy Reyna Coding Level of Care Code D/C Day Management <30 mins Diagnoses Status post reverse arthroplasty of right shoulder Z96.611
[2020-07-10 07:00] LABS: BUN Creatinine Ratio 20.6 (10-20); Calcium 8.7 mg/dl (8.5-10.1); Creatinine Clr Calc Pharmacy 53.2 ml/min; Est GFR (Non-African American) 59.5
[2020-07-10] MEDS ORDERED: dexAMETHasone 4 MG TAB PO SCH (08:00)
[2020-07-10] MEDS: DOCUSATE SODIUM 100 MG CAP PO SCH (08:19)
[2020-07-10] MEDS: METOPROLOL TARTRATE 25 MG TAB PO SCH (08:19)
[2020-07-10] MEDS ORDERED: ATORVASTATIN 40 MG TAB PO SCH (09:00)
[2020-07-10] MEDS ORDERED: CLOPIDOGREL BISULFATE 75 MG TAB PO SCH (09:00)
[2020-07-10] MEDS ORDERED: ASPIRIN 81 MG ECTAB PO SCH (09:00)
[2020-07-10] MEDS ORDERED: MULTIVITAMIN TAB PO SCH (09:00)
[2020-07-10] MEDS ORDERED: TRIAMTERENE/HCTZ 37.5/25MG TAB PO SCH (09:00)
== END 2020-07-10 13:49 | disposition home or self-care (01) | DRG 483 ==
LOC: ASU 08:47 → 3E 13:16
DX: Z95.5 Presence of coronary angioplasty implant and graft; Z79.899 Other long term (current) drug therapy; I71.4 Abdominal aortic aneurysm, without rupture; M75.21 Bicipital tendinitis, right shoulder; M75.101 Unspecified rotator cuff tear or rupture of right shoulder, not specified as traumatic; I25.10 Atherosclerotic heart disease of native coronary artery without angina pectoris; I10 Essential (primary) hypertension; E78.5 Hyperlipidemia, unspecified; Z79.02 Long term (current) use of antithrombotics/antiplatelets; Z79.82 Long term (current) use of aspirin; Z87.891 Personal history of nicotine dependence; I25.2 Old myocardial infarction